=== PATIENT | male | born 1935 | race Caucasian/White ===

== ENCOUNTER 2018-08-31 09:14 | Day surgery (SDC) | payer OTHER ==
[2018-08-29 09:12] VITALS: BMI 27.8
[2018-08-31] MEDS ORDERED: DEXAMETHASONE SOD PHOSPHATE/PF 10 MG/ML SDV ONE (09:32)
[2018-08-31] MEDS ORDERED: ROPIVACAINE HCL 0.5% 30ML VIAL ONE (09:32)
[2018-08-31] MEDS ORDERED: MIDAZOLAM HCL 2 MG/2 ML SINGLE DOSE VIAL ONE ×4 (09:34→12:34)
--- NOTE | 2018-08-31 10:33 | HP ---
History & Physical Update - History History: No Change - Physical Physical: No Change - Assessment Assessment: No Change - Plan Plan: No Change (no change since visit on 08/23/18)
--- NOTE | 2018-08-31 10:46 | HP ---
Admitting History and Physical - Admission Chief Complaint: For creation of left avf today. Preoperative vein mapping showed good cephalic vein in left arm. Limitations to Obtaining History: No Limitations - Past Medical History Cardiovascular: Yes: HTN, Hyperlipdemia Musculoskeletal: Yes: Osteoarthritis Endocrine: Yes: Diabetes Mellitus - Past Surgical History Past Surgical History: Yes: Cataract Removal, Prostatectomy - Smoking History Smoking history: Former smoker Have you smoked in the past 12 months: No If you are a former smoker, when did you quit?: 60 years ago - Alcohol/Substance Use Hx Alcohol Use: No Home Medications - Allergies Allergies/Adverse Reactions: Allergies Allergy/AdvReac Type Severity Reaction Status Date / Time No Known Allergies Allergy Verified 08/31/18 09:56 - Home Medications Home Medications: Ambulatory Orders Aspirin [Ecotrin] 81 mg PO DAILY 08/29/18 Atorvastatin Ca [Lipitor] 20 mg PO HS 08/29/18 Carvedilol [Coreg -] 12.5 mg PO BID 08/29/18 Cholecalciferol (Vitamin D3) [Vitamin D3 -] 400 unit PO DAILY 08/29/18 Ferric Citrate [Auryxia] 210 mg PO BID 08/29/18 Furosemide [Lasix] 80 mg PO DAILY 08/29/18 Glimepiride [Amaryl -] 1 mg PO DAILY 08/29/18 Nifedipine [Nifedipine ER] 90 mg PO DAILY 08/29/18 Sodium Bicarbonate - 650 mg PO DAILY 08/29/18 Tamsulosin HCl [Flomax] 0.4 mg PO DAILY 08/29/18 Family Disease History - Family Disease History Family History: Denies Review of Systems - Review of Systems Constitutional: reports: No Symptoms Eyes: reports: No Symptoms HENT: reports: No Symptoms Neck: reports: No Symptoms Cardiovascular: reports: No Symptoms Respiratory: reports: No Symptoms Gastrointestinal: reports: No Symptoms Genitourinary: reports: No Symptoms Musculoskeletal: reports: No Symptoms Integumentary: reports: No Symptoms Neurological: reports: No Symptoms Endocrine: reports: No Symptoms Hematology/Lymphatic: reports: No Symptoms Psychiatric: reports: No Symptoms Physical Examination Vital Signs: Vital Signs Temperature 98.1 F 08/31/18 09:49 Pulse Rate 59 L 08/31/18 09:49 Respiratory Rate 18 08/31/18 09:49 Blood Pressure 150/65 08/31/18 09:49 O2 Sat by Pulse Oximetry (%) 98 08/31/18 09:50 Constitutional: Yes: Well Nourished, No Distress, Calm Eyes: Yes: WNL, Conjunctiva Clear, EOM Intact HENT: Yes: WNL, Atraumatic, Normocephalic Neck: Yes: WNL, Supple, Trachea Midline Cardiovascular: Yes: WNL, Regular Rate and Rhythm Respiratory: Yes: WNL, Regular, CTA Bilaterally Gastrointestinal: Yes: WNL, Normal Bowel Sounds Musculoskeletal: Yes: WNL Extremities: Yes: WNL Edema: No Peripheral Pulses WNL: Yes Integumentary: Yes: WNL Neurological: Yes: WNL, Alert, Oriented ...Motor Strength: WNL Psychiatric: Yes: WNL Labs: CBC, BMP 08/31/18 09:40 Problem List - Problems (1) Chronic renal failure Assessment/Plan: Chronic renal failure 1. For creation of AVF. Pt will start HD in two to three months. Se Contreras DO Code(s): N18.9 - CHRONIC KIDNEY DISEASE, UNSPECIFIED
[2018-08-31] MEDS ORDERED: HEPARIN NA (PORCINE) 5,000 UNITS/ML 1ML VIAL ONE ×2 (10:59→12:06)
[2018-08-31] MEDS ORDERED: LIDOCAINE HCL 2% (20ML MULTI-DOSE VIAL) NR ONE (10:59)
[2018-08-31] MEDS ORDERED: POVIDONE-IODINE OINTMENT 10% - 28.4 GM TUBE ONE (11:22)
[2018-08-31] MEDS ORDERED: ceFAZolin SODIUM 1 GM VIAL IVPB ONE (11:31)
[2018-08-31] MEDS ORDERED: LIDOCAINE HCL 1%, 10 MG/ML (20ML VIAL) NR ONE ×2 (11:42)
[2018-08-31] MEDS ORDERED: HEPARIN NA (PORCINE) 5,000 UNITS/ML 1ML VIAL SQ ONE (11:45)
[2018-08-31] MEDS ORDERED: POVIDONE-IODINE 10% SOLN 118 ML BOTTLE TP ONE (12:49)
[2018-08-31] MEDS ORDERED: ONDANSETRON 4 MG/2 ML VIAL IVPUSH PRN (12:58)
--- NOTE | 2018-08-31 13:32 | OP ---
Operative Note - Note: Operative Date: 08/31/18 Pre-Operative Diagnosis: CRF Operation: Creation of left cephalic vein fistula. Post-Operative Diagnosis: Same as Pre-op Surgeon: Se Contreras Felt Strip Finisher: Alka Gillespie Anesthesia: Fractional Estimated Blood Loss (mls): 30 Operative Report Dictated: Yes
--- NOTE | 2018-08-31 14:07 | OP ---
DATE OF OPERATION: 08/31/2018 PREOPERATIVE DIAGNOSIS: Chronic renal failure. POSTOPERATIVE DIAGNOSIS: Chronic renal failure. PROCEDURE: Creation of left cephalic vein fistula. SURGEON: eS Barraza DO BASE WAD OPERATOR ADJUSTER: YOCASTA Nicole ANESTHESIA: Fractional with nerve block. BLOOD LOSS: 30 mL The patient is an 82-year-old male who came from the security and compliance analyst's office with the notion that he will need to be starting dialysis in a couple of months and he needs a fistula to be created so that he will be ready for dialysis. Patient had preoperative vein mapping in the left upper extremity, showing that he has a good cephalic vein of good caliber. Patient came in through ambulatory surgery. Patient was consented for the procedure, understanding all risks, benefits, and alternatives. In the holding area, Anesthesia performed a supraclavicular nerve block. Patient was then brought into the operating room, laid down on the operating room table in a supine manner. The area of the left arm was prepped and draped in a sterile surgical manner. Under ultrasound guidance, we were able to visualize the cephalic vein and the brachial artery above the antecubital space, and we were able to divine where those vessels were located. A transverse incision was drawn with a skin marker. We then went ahead and injected 10 mL of lidocaine 1% in the area. We then took a number-15 blade and made our 7-cm incision. Bovie electrocautery was then used to control hemostasis. We were then able to dissect the subcutaneous tissue using Metzenbaum scissors and get down to the cephalic vein. The cephalic vein was dissected anterior and posteriorly, and all branches were ligated using 4-0 silk. We then went medially and opened the bicipital aponeurosis, and we were able to get down to the brachial artery. The brachial artery was dissected anterior and posteriorly, and vessel loops were placed proximally and distally. Then, 5000 units of IV heparin were administered to the patient. We then went ahead and ligated our cephalic vein distally. We then went ahead and placed a feeding tube in the vein and the feeding tube went up nicely with good backbleeding and the vein was dilated up appropriately. We then were able to transpose the vein over to the artery. Before transposing it, we went ahead and made a 7-mm venotomy on the vein. After 3 minutes of being on IV heparin, we got distal and proximal control on our artery. Using a 15 blade, we made an arteriotomy which was extended to 7 mm using Angeles scissors. stay sutures were placed on the artery then. We then used 6-0 Prolene double-arm, went outside in on the vein and inside out on the artery and ran the suture around to perform an anastomosis between the artery and the vein. Once completed, we opened the distal artery first, then the proximal artery, and there was a good thrill in our AV fistula. There was no bleeding. The vein dilated up appropriately. The wound was then well irrigated, and 3-0 Vicryl was used in the subcutaneous tissue was approximated in an interrupted manner. The skin was then closed using 4-0 Biosyn in a subcuticular running fashion. Thereafter, Steri-Strips were placed, 4 x 4, Tegaderms were placed. The patient tolerated the procedure with no complication. Patient transferred to PACU in stable condition. Total blood loss was 30 mL. SE BARRAZA DO [id number]
[2018-08-31 14:49] VITALS: BP 148/58; PULSE 66; TEMP 97.6
== END 2018-08-31 15:15 | disposition home or self-care (01) ==
LOC: JASU-SURG 09:14
PROVIDERS: ATTEND Surgery Vascular Surgery
PROC: 03180ZD Bypass Left Brachial Artery to Upper Arm Vein, Open Approach (ICD-10-PCS; principal; 2018-08-31 10:30)
DX: I12.0 Hypertensive chronic kidney disease with stage 5 chronic kidney disease or end stage renal disease (principal); E11.22 Type 2 diabetes mellitus with diabetic chronic kidney disease; N18.6 End stage renal disease; Z79.84 Long term (current) use of oral hypoglycemic drugs
CPT/HCPCS: 36415; 82962; 84132; 94760; J1644

== ENCOUNTER 2019-02-03 18:04 | Inpatient (IN) | payer OTHER ==
[2019-02-03] MEDS ORDERED: NITROGLYCERIN 25MG/D5W 250ML 25 MG/250 ML ML IVPB ONE (18:20)
--- NOTE | 2019-02-03 18:24 | PDOC ---
Attending Attestation - Resident Resident Name: RogerCarlyle brown - ED Attending Attestation I have performed the following: I have examined & evaluated the patient, The case was reviewed & discussed with the resident, I agree w/resident's findings & plan, Exceptions are as noted - HPI HPI: 02/03/19 18:34 83y M hx of chronic renal failure (pre dialysis) presents with complaint of sudden onset of sob around 2pm today while he was watching TV. Pt states he has been doing well. Denies anyassociated cp, cough, fever/chills, hemoptysis, leg sweling, orthopnea, n/v, diaphoresis, abd pain, back pain palpitations, lghtheadedness. Per EMS the patient was very hypertensive upon their arrival, had a sat that was 100% on nasal cannula that was placed by the fire department , had rales bilaterally was started on CPAP. The patient states his feeling better upon arrival. States she has never felt similar symptoms in the past. PMD: Dr. Ulloa Renal: Dr. [facility] GENERAL: The patient is awake, alert, and fully oriented, Nontoxic - in no acute distress. HEAD: Normocephalic, atraumatic. EYES: extraocular movements intact, sclera anicteric, conjunctiva clear. ENT: Normal voice, Moist mucous membranes. NECK: Normal range of motion, supple LUNGS: scant rales b/l, no acute respiratory distress, CPAP in place. HEART: Irregularly irregular, ABDOMEN: Soft, nontender, normoactive bowel sounds. No guarding, no rebound. . No CVA tenderness EXTREMITIES: Normal range of motion, no edema. No clubbing or cyanosis. No cords, erythema, or tenderness. NEUROLOGICAL: No facial assymetry, Normal speech, PSYCH: Normal mood, normal affect. SKIN: Warm, Dry, normal turgor, Upon arrival the patient was no distress he did have rales bilaterally, ultrasound of his lungs did reveal beelines. We continued the noninvasive ventilation pts bp was in the 160s sbp pt given ntg - Physicial Exam PE: 02/06/19 22:03 see above - Critical Care Time Total Critical Care Time: 45 Critical Care Statement: The care of this patient involved high complexity decision making to prevent further life threatening deterioration of the patient 's condition and/or to evaluate & treat vital organ system(s) failure or risk of failure. - Medical Decision Making 02/03/19 19:26 pts labs reviewed no leukocytosis noted cmp noted for bun of 72 and cr of 3.9- I suspect this may be chronic, however there is no prior lab work for comparison. pts K is wnl ekg noted for new onset afib pts trop is bumped at 0.06 - no compliaint of cp and no ischemic changes noted on ekg bmp at 12k suspect chf, possible realted to CKD vs afib will trend his labs will admit for further mangaement of afib, ckd, pulmonary edema bedside echo noted for trace pericardial effusion pts cxr noted for possible consolidation in R lung - however, he has no signs suggestion of pna including fever/cough. 02/03/19 19:46 pts respiratory status is improved no acute respiratory distress will give pt his nifedipine Heart Score/ECG Review - ECG Impressions Comment:: 02/03/19 19:16 Twelve-lead EKG was performed and reviewed by me. Irregularly irregular rate of 109 st depressions on lateral leads
[2019-02-03 18:35] LABS: BASO % 0.6 % (0-2.0); EOS % 3.5 % (0-4.5); HEMATOCRIT 34.2 % (35.4-49); HEMOGLOBIN 11.7 GM/dL (11.7-16.9); LYMPH % 7.9 % (8-40); MCH 29.9 pg (25.7-33.7); MCHC 34.3 g/dl (32.0-35.9); MEAN CELL VOLUME 87.2 fl (80-96); MONO % 7.8 % (3.8-10.2); NEUT % 80.2 % (42.8-82.8); PLATELET COUNT 266 K/MM3 (134-434); RBC 3.92 M/mm3 (4.00-5.60); RDW 15.4 % (11.9-15.9)
[2019-02-03] MEDS ORDERED: NITROGLYCERIN 2% OINTMENT - 1GM PACKET TD ONE ×2 (18:38→18:53)
[2019-02-03] MEDS ORDERED: NITROGLYCERIN SUBLINGUAL 1/150 0.4 MG TAB SL ONE (18:38)
--- NOTE | 2019-02-03 18:49 | PDOC ---
History of Present Illness - General Chief Complaint: Respiratory Distress Stated Complaint: SOB Time Seen by Provider: 02/03/19 18:19 History Source: Patient, Family Exam Limitations: No Limitations - History of Present Illness Initial Comments: 02/03/19 18:42 Patient is an 83M with history of CKD Stage 4 (fistula placed, not on dialysis yet), HTN, DM, HLD here today complaining of acute onset of shortness of breath at 2pm today. EMS reports BPs were 200s in the field with rales bilaterally. Patient was started on CPAP and given nitro x2 with improvement of symptoms. Patient denies chest pain, fever, chills, nausea, vomiting. Denies cardiac history, afib. Denies abdominal pain. Denies leg swelling, recent travel, history of blood clots. Past History - Past Medical History Allergies/Adverse Reactions: Allergies Allergy/AdvReac Type Severity Reaction Status Date / Time No Known Allergies Allergy Verified 02/03/19 18:11 Home Medications: Ambulatory Orders Aspirin [Ecotrin] 81 mg PO DAILY 08/29/18 Atorvastatin Ca [Lipitor] 20 mg PO HS 08/29/18 Carvedilol [Coreg -] 12.5 mg PO BID 08/29/18 Cholecalciferol (Vitamin D3) [Vitamin D3 -] 400 unit PO DAILY 08/29/18 Ferric Citrate [Auryxia] 210 mg PO BID 08/29/18 Furosemide [Lasix] 80 mg PO DAILY 08/29/18 Glimepiride [Amaryl -] 1 mg PO DAILY 08/29/18 Nifedipine [Nifedipine ER] 60 mg PO BID 08/29/18 Sodium Bicarbonate - 650 mg PO DAILY 08/29/18 Tamsulosin HCl [Flomax] 0.4 mg PO DAILY 08/29/18 COPD: Yes Diabetes: Yes HTN: Yes Hypercholesterolemia: Yes - Immunization History Immunization Up to Date: Yes - Suicide/Smoking/Psychosocial Hx Smoking History: Unknown if ever smoked Have you smoked in the past 12 months: No If you are a former smoker, when did you quit?: 60 years ago Hx Alcohol Use: No Drug/Substance Use Hx: No Substance Use Type: None Review of Systems - Review of Systems Able to Perform ROS?: Yes Comments:: 02/03/19 18:44 GENERAL/CONSTITUTIONAL: No fever or chills. No weakness. HEAD, EYES, EARS, NOSE AND THROAT: No change in vision. No sore throat. CARDIOVASCULAR: No chest pain +shortness of breath RESPIRATORY: No cough, wheezing, or hemoptysis. GASTROINTESTINAL: No nausea, vomiting, diarrhea or constipation. GENITOURINARY: No dysuria, frequency, or change in urination. MUSCULOSKELETAL: No joint or muscle swelling or pain. No neck or back pain. SKIN: No rash NEUROLOGIC: No headache, vertigo, loss of consciousness, or change in strength/ sensation. HEMATOLOGIC/LYMPHATIC: No anemia, easy bleeding, or history of blood clots. ALLERGIC/IMMUNOLOGIC: No hives or skin allergy. *Physical Exam - Vital Signs Last Vital Signs Temp Pulse Resp BP Pulse Ox 97.4 F L 108 H 18 167/100 97 02/03/19 18:35 02/03/19 18:35 02/03/19 18:35 02/03/19 18:35 02/03/19 18:35 - Physical Exam Comments: 02/03/19 18:45 GENERAL: Awake, alert, and fully oriented, in no acute distress HEAD: No signs of trauma, normocephalic, atraumatic EYES: PERRLA, EOMI, sclera anicteric, conjunctiva clear ENT: Auricles normal inspection, hearing grossly normal, nares patent, oropharynx clear without exudates. Moist mucosa NECK: Normal ROM, supple, no lymphadenopathy, JVD, or masses LUNGS: Tachypneic, speaks short sentences, crackles bilaterally HEART: Tachycardia, normal S1 and S2, no murmurs, rubs or gallops, peripheral pulses normal and equal bilaterally. ABDOMEN: Soft, nontender, normoactive bowel sounds. No guarding, no rebound. No masses EXTREMITIES: Normal inspection, Normal range of motion, no edema. No clubbing or cyanosis. NEUROLOGICAL: Cranial nerves II through XII grossly intact. Normal speech, no focal sensorimotor deficits SKIN: Warm, Dry, normal turgor, no rashes or lesions noted. Moderate Sedation - Procedure Monitoring Vital Signs: Procedure Monitoring Vital Signs Temperature 97.4 F L 02/03/19 18:35 Pulse Rate 108 H 02/03/19 18:35 Respiratory Rate 18 02/03/19 18:35 Blood Pressure 167/100 02/03/19 18:35 O2 Sat by Pulse Oximetry (%) 97 02/03/19 18:35 ED Treatment Course - LABORATORY CBC & Chemistry Diagram: 02/03/19 18:10 02/03/19 18:10 - ADDITIONAL ORDERS Additional order review: Laboratory Results 02/03/19 18:10 PT with INR Cancelled INR Cancelled 02/03/19 18:10 RBC 3.92 L MCV 87.2 MCHC 34.3 RDW 15.4 MPV 8.0 Neutrophils % 80.2 Lymphocytes % 7.9 L Monocytes % 7.8 Eosinophils % 3.5 Basophils % 0.6 Medical Decision Making - Medical Decision Making 02/03/19 18:46 Patient is 83M with history of CKD stage 4, htn, dm, HLD here today with shortness of breath. Initial vitals notable for bp elevation, tachycardia, tachypnea. POCUS shows b-lines bilaterally. Patient is in acute pulm edema. BPs sadaf to 190s after nitro from EMS wore off. Attempted to start nitro drip, tubing not available. Given SL and started on nitro paste. Last BP in 150s systolic. Patient no longer tachypneic. EKG shows afib with rate of 105. ST depressions in lateral precordial leads. No st elevations. ?p waves in a few beats, but overall irregular. PE considered, but believe not likely enough to work up given history and physical. DDx for cause of acute pulmonary edema includes, but is not limited to : CHF, HTN, CKD. 02/03/19 19:13 Bedside echo shows small pericardial effusion. Good squeeze. No signs of right heart strain. 02/04/19 01:31 CBC normal. CMP shows evidence of kidney disease. CXR shows mild pulmonary edema , taken after BPs normalized. Trop mildly elevated, BNP 11K. Given lasix. Case d/w Dr Pino, accepted to [facility]. *DC/Admit/Observation/Transfer Diagnosis at time of Disposition: Acute pulmonary edema - Discharge Dispostion Condition at time of disposition: Stable Decision to Admit order: Yes - Referrals - Patient Instructions - Post Discharge Activity
[2019-02-03 18:52] LABS: ARTERIAL BLD GAS O2 SATURATION 98.6 % (95-98); ARTERIAL BLOOD GAS PCO2 36.4 mmHg (35-45); ARTERIAL BLOOD GAS PO2 143 mmHg (80-105); ARTERIAL BLOOD GAS pH 7.35 (7.35-7.45); CARBOXYHEMOGLOBIN 0.7 % (0-2)
[2019-02-03 18:58] LABS: INR 1.16 (0.83-1.09); PROTHROMBIN TIME (PATIENT) 13.7 SEC (9.7-13.0)
[2019-02-03 19:01] LABS: ACTIVATED PTT 32.5 SECONDS (25.2-36.5)
[2019-02-03 19:12] LABS: ALBUMIN 3.6 g/dl (3.4-5.0); ALK PHOS 70 U/L (45-117); ANION GAP 12 MMOL/L (8-16); BILIRUBIN,TOTAL 0.5 mg/dL (0.2-1); BLOOD UREA NITROGEN 79 mg/dL (7-18); CALCIUM 8.6 mg/dL (8.5-10.1); CHLORIDE 110 mmol/L (98-107); CO2 20 mmol/L (21-32); CREATININE 3.9 mg/dL (0.55-1.3); GLUCOSE,RANDOM 154 mg/dL (74-106); MAGNESIUM 2.6 mg/dL (1.8-2.4); N-TERMINAL BNP 12119.9 pg/ml (5-450); PHOSPHOROUS 4.1 mg/dL (2.5-4.9); SGOT/AST 5 U/L (15-37); SGPT/ALT 12 U/L (13-61); SODIUM 142 mmol/L (136-145); TOT PROT 6.5 g/dl (6.4-8.2)
[2019-02-03] MEDS ORDERED: FUROSEMIDE 40 MG/4 ML INJECTABLE VIAL IVPUSH ONE ×2 (19:26→20:30)
[2019-02-03] MEDS ORDERED: NIFEdipine E.R 60 MG TABLET (UD) PO ONE (19:45)
--- NOTE | 2019-02-03 19:46 | PN ---
Teaching Attending Note Name of Resident: Suresh Pino ATTENDING PHYSICIAN STATEMENT I saw and evaluated the patient. I reviewed the resident's note and discussed the case with the resident. I agree with the resident's findings and plan as documented. SUBJECTIVE: Patient is an 83 year old man with PMH of CKD Stage 4, HTN, NIDDM and HLD here today complaining of acute onset of shortness of breath at 2pm today. EMS reports BPs were 200s in the field with rales bilaterally. Patient was started on CPAP and given nitro x2 with improvement of symptoms. Patient denies chest pain, fever, chills, nausea, vomiting. Denies cardiac history, afib. Denies abdominal pain. Denies leg swelling, recent travel, history of blood clots. OBJECTIVE: Alert Vital Signs Period Temp Pulse Resp BP Sys/Patiño Pulse Ox Last 24 Hr 97.4 F 105-115 18-22 145-167/80-102 97-100 HEENT: No Jaundice, eye redness or discharge, PERRLA, EOMI. Normocephalic, atraumatic. External ears are normal and hearing is grossly intact. No nasal discharge. Neck: Supple, nontender. No palpable adenopathy or thyromegaly. No JVD Chest: Good effort. Bibasilar crackles. Clear to percussion. Heart: Regular. No S3, rub or murmur Abdomen: Not distended, soft, nontender and no HSM. No rebound or guarding. Normal bowel sounds. Ext: Peripheral pulses intact. No leg edema. Left arm AV fistula Skin: Warm and dry. No petechiae, rash or ecchymosis. Neuro: Alert. Oriented x3. CN 2-12 grossly intact. Sensation grossly intact in all four extremities and DTR are symmetric. Psych: Appropriate mood and affect. Good insight. Current Medications Generic Name Dose Route Start Last Admin Trade Name Freq PRN Reason Stop Dose Admin Aspirin 81 mg 02/04/19 10:00 Ecotrin - PO DAILY [facility] Atorvastatin Calcium 20 mg 02/03/19 22:00 Lipitor - PO HS ELANA Cholecalciferol 400 unit 02/04/19 10:00 Vitamin D3 - PO DAILY [facility] Heparin Sodium (Porcine) 5,000 unit 02/03/19 20:30 Heparin - SQ TID [facility] Nitroglycerin/Dextrose 25 mg in 250 mls @ 6 mls/hr 02/03/19 20:45 Nitroglycerin 25mg/D5w 250ml IVPB TITR ELANA 10 MCG/MIN Insulin Aspart 1 vial 02/03/19 22:00 Novolog Vial Sliding Scale - SQ ACHS [facility] Protocol Non-Formulary Medication 210 mg 02/03/19 22:00 Ferric Citrate [Auryxia] PO BID ELANA Tamsulosin HCl 0.4 mg 02/04/19 08:30 Flomax - PO DAILY@0830 [facility] Home Medications Medication Instructions Recorded Aspirin [Ecotrin] 81 mg PO DAILY 08/29/18 Atorvastatin Ca [Lipitor] 20 mg PO HS 08/29/18 Carvedilol [Coreg -] 12.5 mg PO BID 08/29/18 Cholecalciferol (Vitamin D3) 400 unit PO DAILY 08/29/18 [Vitamin D3 -] Ferric Citrate [Auryxia] 210 mg PO BID 08/29/18 Furosemide [Lasix] 80 mg PO DAILY 08/29/18 Glimepiride [Amaryl -] 1 mg PO DAILY 08/29/18 Nifedipine [Nifedipine ER] 60 mg PO BID 08/29/18 Sodium Bicarbonate - 650 mg PO DAILY 08/29/18 Tamsulosin HCl [Flomax] 0.4 mg PO DAILY 08/29/18 Abnormal Lab Results 02/03/19 02/03/19 02/03/19 18:10 18:10 18:10 RBC 3.92 L Hct 34.2 L Absolute Neuts (auto) 8.1 H Lymphocytes % 7.9 L PT with INR 13.70 H INR 1.16 H ABG pO2 at Pt Temp ABG HCO3 ABG O2 Sat (Measured) ABG Base Excess Chloride 110 H Carbon Dioxide 20 L BUN 79 H Creatinine 3.9 H Random Glucose 154 H Magnesium 2.6 H AST 5 L ALT 12 L Troponin I 0.06 H B-Natriuretic Peptide 75400.9 H 02/03/19 18:33 RBC Hct Absolute Neuts (auto) Lymphocytes % PT with INR INR ABG pO2 at Pt Temp 143 H ABG HCO3 19.5 L ABG O2 Sat (Measured) 98.6 H ABG Base Excess -5.0 L Chloride Carbon Dioxide BUN Creatinine Random Glucose Magnesium AST ALT Troponin I B-Natriuretic Peptide ASSESSMENT AND PLAN: 1. Acute Pulmonary Edema/Hypertensive Urgency - Possible that severe hypertension resulted in acute LV dysfunction in a patient who already had CKD- related fluid overload. But the suddenness of SOB also means that pulmonary embolism or acute IL must be excluded. Afib appears to be new onset. EKG shows rate of [address] depression in V4-6 and troponin is 0.06. CXR shows cardiomegaly with RLL atelectasis/congestion. His BP has improved after he got Nitroglycerine, Lasix and Nifedipine in the ER. He has been transitioned from BIPAP to nasal canula oxygen and is on IV nitroglycerine. Will give escalating doses of IV lasix starting with 80 mg, repeat EKG and troponin and admit to telemetry to rule out ACS. If his response to fluid removal (via diuresis or ?dialysis) is suboptimal, and ACS is ruled out, and symptoms persist, then a VQ scan will be obtained to rule out PE. Consult Cardiology and Nephrology. Will consider anticoagulation for Afib in consultation with cardiology. Get ECHO. 2. DM For now, we will hold the home diabetes drugs and implement sliding scale insulin regimen. Provide comprehensive diabetes care with patient teaching and counseling about the importance of adherence to prescribed diabetes regimen, euglycemia, eye care and foot care. 3. DVT prophylaxis - Heparin 5000u sq tid. 4. Advance directives - Full code
[2019-02-03] MEDS ORDERED: NIFEdipine E.R. 30 MG TABLET (FP) ONE (19:50)
[2019-02-03] MEDS ORDERED: FUROSEMIDE 40 MG/4 ML INJECTABLE VIAL ONE ×2 (19:50→21:18)
[2019-02-03] MEDS ORDERED: HEPARIN NA (PORCINE) 5,000 UNITS/ML 1ML VIAL SQ SCH (20:30)
--- NOTE | 2019-02-03 20:41 | HP ---
CHIEF COMPLAINT: SOB PCP: Dr. Ulloa Nephro: Dr. Yanez HISTORY OF PRESENT ILLNESS: Patient is an 83 y/o M w/ PMHx CKD stage 4 s/p AV fistula in Aug 2018 however not on HD at this time, HTN, NIDDM, HLD, p/w acute onset SOB ~2pm this afternoon, not accompanied by chest pain or any other changes in usual state of health. Has not experienced dyspnea, orthopnea, edema, or other symptoms of HF previously. No prior episodes like this. 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 Started on CPAP in field and given nitro x 2 with significant symptomatic improvement. In ED CBC wnl, Cr 3.9 however baseline unknown, Trop 0.06, BNP 00392. EKG showing Afib/ RVR w/ ST depressions in lateral leads, no known prior. No prior cardiology care , no prior known cardiac Hx. Received Lasix 40 IV in ED (home dose 80 PO), nitro paste. At time of encounter acute symptoms had resolved and patient had no active complaints. ROS otherwise negative. ER course was notable for: (1) trop 0.06, BNP 19004l (2) Cr 3.9 (3) nitro paste Recent Travel: PAST MEDICAL HISTORY: As per HPI PAST SURGICAL HISTORY: None Social History: Smoking: Alcohol: Drugs: Family History: Allergies No Known Allergies Allergy (Verified 02/03/19 18:11) HOME MEDICATIONS: Home Medications Medication Instructions Recorded Aspirin [Ecotrin] 81 mg PO DAILY 08/29/18 Atorvastatin Ca [Lipitor] 20 mg PO HS 08/29/18 Carvedilol [Coreg -] 12.5 mg PO BID 08/29/18 Cholecalciferol (Vitamin D3) 400 unit PO DAILY 08/29/18 [Vitamin D3 -] Ferric Citrate [Auryxia] 210 mg PO BID 08/29/18 Furosemide [Lasix] 80 mg PO DAILY 08/29/18 Glimepiride [Amaryl -] 1 mg PO DAILY 08/29/18 Nifedipine [Nifedipine ER] 60 mg PO BID 08/29/18 Sodium Bicarbonate - 650 mg PO DAILY 08/29/18 Tamsulosin HCl [Flomax] 0.4 mg PO DAILY 08/29/18 REVIEW OF SYSTEMS As per HPI PHYSICAL EXAMINATION Vital Signs - 24 hr 02/03/19 02/03/19 02/03/19 18:05 18:06 18:07 Temperature Pulse Rate 105 H Pulse Rate [ 115 H Apical] Respiratory 22 H Rate Blood Pressure Blood Pressure 163/101 H [Right Arm] O2 Sat by Pulse 100 98 100 Oximetry (%) 02/03/19 02/03/19 02/03/19 18:30 18:35 18:38 Temperature 97.4 F L Pulse Rate 108 H Pulse Rate [ 105 H 105 H Apical] Respiratory 20 18 20 Rate Blood Pressure 167/100 Blood Pressure 151/95 145/80 [Right Arm] O2 Sat by Pulse 100 97 100 Oximetry (%) 02/03/19 18:50 Temperature Pulse Rate Pulse Rate [ 109 H Apical] Respiratory 19 Rate Blood Pressure Blood Pressure 160/102 H [Right Arm] O2 Sat by Pulse 100 Oximetry (%) GENERAL: A&Ox3, NAD HEAD: NC/AT EYES: PERRLA, EOMI EARS, NOSE, THROAT: Ears normal, nares patent, oropharynx clear without exudates. Moist mucous membranes. NECK: Normal range of motion, supple without lymphadenopathy, JVD, or masses. LUNGS: dependent rales b/l HEART: tachycardic, irregularly irregular ABDOMEN: +bs, soft, NT, ND MUSCULOSKELETAL: Normal range of motion at all joints. No bony deformities or tenderness. No CVA tenderness. UPPER EXTREMITIES: 2+ pulses, warm, well-perfused. No cyanosis. No clubbing. No peripheral edema. LOWER EXTREMITIES: 2+ pulses, warm, well-perfused. No calf tenderness. No peripheral edema. 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 Good eye contact. Appropriate mood and affect. SKIN: Warm, dry, normal turgor, no rashes or lesions noted, normal capillary refill. Laboratory Results - last 24 hr 02/03/19 02/03/19 02/03/19 18:10 18:10 18:10 WBC 10.0 RBC 3.92 L Hgb 11.7 Hct 34.2 L MCV 87.2 MCH 29.9 MCHC 34.3 RDW 15.4 Plt Count 266 MPV 8.0 Absolute Neuts (auto) 8.1 H Neutrophils % 80.2 Lymphocytes % 7.9 L Monocytes % 7.8 Eosinophils % 3.5 Basophils % 0.6 Nucleated RBC % 0 PT with INR 13.70 H INR 1.16 H PTT (Actin FS) 32.5 Anticoagulation Therapy Puncture Site ABG pH ABG pCO2 at Pt Temp ABG pO2 at Pt Temp ABG HCO3 ABG O2 Sat (Measured) ABG O2 Content ABG Base Excess Stan Test Carboxyhemoglobin Methemoglobin O2 Delivery Device Oxygen Flow Rate Vent Mode Vent Rate Mechanical Rate Pressure Support Vent Sodium 142 Potassium 4.0 Chloride 110 H Carbon Dioxide 20 L Anion Gap 12 BUN 79 H Creatinine 3.9 H Creat Clearance w eGFR 14.77 Random Glucose 154 H Calcium 8.6 Phosphorus 4.1 Magnesium 2.6 H Total Bilirubin 0.5 AST 5 L ALT 12 L Alkaline Phosphatase 70 Creatine Kinase 42 Troponin I 0.06 H B-Natriuretic Peptide 80441.9 H Total Protein 6.5 Albumin 3.6 02/03/19 02/03/19 18:10 18:33 WBC RBC Hgb Hct MCV MCH MCHC RDW Plt Count MPV Absolute Neuts (auto) Neutrophils % Lymphocytes % Monocytes % Eosinophils % Basophils % Nucleated RBC % PT with INR Cancelled INR Cancelled PTT (Actin FS) Anticoagulation Therapy No Result Required. Puncture Site No Result Required. ABG pH 7.35 ABG pCO2 at Pt Temp 36.4 ABG pO2 at Pt Temp 143 H ABG HCO3 19.5 L ABG O2 Sat (Measured) 98.6 H ABG O2 Content 16.5 ABG Base Excess -5.0 L Stan Test No Result Required. Carboxyhemoglobin 0.7 Methemoglobin 0.3 O2 Delivery Device No Result Required. Oxygen Flow Rate No Result Required. Vent Mode No Result Required. Vent Rate No Result Required. Mechanical Rate No Result Required. Pressure Support Vent No Result Required. Sodium Potassium Chloride Carbon Dioxide Anion Gap BUN Creatinine Creat Clearance w eGFR Random Glucose Calcium Phosphorus Magnesium Total Bilirubin AST ALT Alkaline Phosphatase Creatine Kinase Troponin I B-Natriuretic Peptide Total Protein Albumin ASSESSMENT/PLAN: 3 y/o M w/ PMHx CKD stage 4 s/p AV fistula in Jul/Aug 2018 however not on HD at this time, HTN, NIDDM, HLD, p/w acute onset SOB ~2pm this afternoon, in hypertensive urgency/emergency in the field with systolic BPs in 200s, b/l rales , troponemia. #CV -cardiology consulted, d/w Dr. Vega -hypertensive emergency, received nitro paste in ED, starting nitro gtt -troponin 0.06, will trend -EKG showing Afib/RVR w/ ST depressions in lateral leads, no known prior -repeating EKG -starting heparin gtt -Lasix 40 IV given in ED -further Lasix 80 IV stat, starting Lasix 40 IV BID -further diuresis as per nephrology and cardiology -CXR without notable congestive changes -echo ordered #pulmonary -acute pulmonary edema noted in field -rales improving -transitioned from NIPPV to NC, maintaining saturation, dyspnea resolving #renal -nephrology consulted, d/w Dr. June covering for Dr. Yanez -nitro gtt for BP control and improved diuresis -will assess need for HD -AV fistula in place since Sep 07 #FEN -no IVF -monitor and correct electrolytes -renal/diabetic diet #PPx -DVT: heparin gtt -GI: not indicated #code -full #dispo -admit to telemetry Visit type - Emergency Visit Emergency Visit: Yes ED Registration Date: 02/03/19 Care time: The patient presented to the Emergency Department on the above date and was hospitalized for further evaluation of their emergent condition. - New Patient This patient is new to me today: Yes Date on this admission: 02/03/19 - Critical Care Critical Care patient: No
[2019-02-03] MEDS ORDERED: HEPARIN NA (PORCINE) 5,000 UNITS/ML 1ML VIAL IVPUSH PRN ×2 (20:50)
[2019-02-03] MEDS ORDERED: NITROGLYCERIN 25MG/D5W 250ML 25 MG/250 ML ML IVPB SCH (21:00)
[2019-02-03] MEDS ORDERED: HEPARIN NA (PORCINE) 5,000 UNITS/ML 1ML VIAL ONE (21:18)
[2019-02-03] MEDS ORDERED: HEPARIN INFUSION - 25,000 UNITS/500 ML INFUS.BAG IVPB ONE (21:18)
[2019-02-03] MEDS: HEPARIN INFUSION - 25,000 UNITS/500 ML INFUS.BAG IVPB SCH (21:49)
[2019-02-03] MEDS ORDERED: PATIENT'S OWN MEDICATION (NON-FORMULARY) (Ferric Citrate [Auryxia] 210 MG) PO SCH (22:00)
[2019-02-03] MEDS ORDERED: ATORVASTATIN CA 10 MG TABLET (FP) ONE (23:14)
[2019-02-03] MEDS ORDERED: INSULIN (NOVOLOG) ASPART 100 UNITS/ML 10ML VIAL ONE (23:14)
[2019-02-03 23:20] LABS: URINE APPEARANCE CLEAR; URINE BILIRUBIN NEGATIVE (<2.0 mg/dL); URINE COLOR STRAW; URINE GLUCOSE (UA) 1+ (NEGATIVE); URINE KETONE NEGATIVE (NEGATIVE); URINE LEUK ESTERASE NEGATIVE (NEGATIVE); URINE NITRITE NEGATIVE (NEGATIVE); URINE PROTEIN 2+ (NEGATIVE); URINE UROBILINOGEN NEGATIVE mg/dL (0.2-1.0)
[2019-02-03 23:23] LABS: URINE MUCUS RARE
[2019-02-03] MEDS: ATORVASTATIN CA 20 MG TABLET (FP) PO SCH (23:33)
[2019-02-03] MEDS: INSULIN SLIDING SCALE (NOVOLOG) 1 VIAL SQ SCH (23:33)
[2019-02-04] MEDS: INSULIN SLIDING SCALE (NOVOLOG) 1 VIAL SQ SCH ×4 (06:24→22:15)
[2019-02-04] MEDS: FUROSEMIDE 40 MG/4 ML INJECTABLE VIAL IVPUSH SCH ×2 (06:24→14:19)
[2019-02-04 06:55] LABS: BASO % 0.9 % (0-2.0); HEMATOCRIT 31.4 % (35.4-49); HEMOGLOBIN 10.8 GM/dL (11.7-16.9); LYMPH % 18.2 % (8-40); MCH 29.7 pg (25.7-33.7); MCHC 34.5 g/dl (32.0-35.9); MEAN CELL VOLUME 86.1 fl (80-96); NEUT % 62.9 % (42.8-82.8); PLATELET COUNT 266 K/MM3 (134-434); RBC 3.64 M/mm3 (4.00-5.60); RDW 15.5 % (11.9-15.9); WHITE BLOOD COUNT 6.7 K/mm3 (4.0-10.0)
[2019-02-04 07:34] LABS: ALBUMIN 3.3 g/dl (3.4-5.0); ALK PHOS 65 U/L (45-117); ANION GAP 9 MMOL/L (8-16); BILIRUBIN,TOTAL 0.5 mg/dL (0.2-1); BLOOD UREA NITROGEN 80 mg/dL (7-18); CALCIUM 8.1 mg/dL (8.5-10.1); CHLORIDE 111 mmol/L (98-107); CO2 22 mmol/L (21-32); GLUCOSE,RANDOM 113 mg/dL (74-106); MAGNESIUM 2.4 mg/dL (1.8-2.4); PHOSPHOROUS 4.1 mg/dL (2.5-4.9); SGOT/AST 4 U/L (15-37); SGPT/ALT 10 U/L (13-61); SODIUM 143 mmol/L (136-145)
[2019-02-04] MEDS ORDERED: PT OWN MED DRAWER 7, Y5N ONE ×2 (08:54→12:27)
[2019-02-04] MEDS: TAMSULOSIN HCL 0.4 MG CAP PO SCH (09:33)
--- NOTE | 2019-02-04 09:51 | CON.CARD ---
Consult Consult Specialty:: Cardiology Referred by:: Dr. Chapa Reason for Consultation:: Hypertensive urgency - History of Present Illness Chief Complaint: SOB History of Present Illness: 83M with CKD (AV fistula in place), stage III/IV, HTN, HLD presented to ER with shortness of breath. Found to be in atrial fibrillation and with moderate- severely elevated BP. Markedly elevated BNP. He was given IV Lasix, Nitro gtts and IV heparin. Currently feeling improved. Denies chest pain, palpitations, fevers or chills. - History Source History Provided By: Patient - Past Medical History Cardio/Vascular: Yes: HTN, Hyperlipdemia Pulmonary: No: Asthma, Bronchitis, Cancer, COPD, O2 Dependent, Pneumonia, Previously Intubated, Pulmonary Embolus, Pulmonary Fibrosis, Sleep Apnea, Other Gastrointestinal: No: Ascites, Cancer, Constipation, Crohn's Disease, Diverticulitis, Diverticulosis, Esophageal Varices, Gastritis, GERD, GI Bleed, Hemorrhoids, Hiatal Hernia, Inflamatory Bowel Disease, Irritable Bowel Disease, Pancreatitis, Peptic Ulcer Disease, Ulcerative Colitis, Other Renal/: Yes: Renal Inusuff Heme/Onc: No: Anemia, B12 Deficiency, Bleeding Disorder, Cancer, Current Chemotherapy, Current Radiation Therapy, Hemochromatosis, Hypercoaguable State, Myeloproliferative Synd, Sickle Cell Disease, Sickle Cell Trait, Thrombocytopenia, Other Infectious Disease: No: AIDS, C-Diff, Herpes Zoster, HIV, MRSA, STD's, Tuberculosis, VREF, Other Psych: No: Addictions, Anxiety, Bipolar, Depression, Panic, Psychosis, Schizophrenia, Other Musculoskeletal: Yes: Osteoarthritis Endocrine: Yes: Diabetes Mellitus - Past Surgical History Past Surgical History: Yes: Cataract Removal, Prostatectomy - Alcohol/Substance Use Hx Alcohol Use: No - Smoking History Smoking history: Unknown if ever smoked Have you smoked in the past 12 months: No If you are a former smoker, when did you quit?: 60 years ago - Social History Usual Living Arrangement: Alone History of Recent Travel: No Home Medications - Allergies Allergies/Adverse Reactions: Allergies Allergy/AdvReac Type Severity Reaction Status Date / Time No Known Allergies Allergy Verified 02/03/19 18:11 - Home Medications Home Medications: Ambulatory Orders Aspirin [Ecotrin] 81 mg PO DAILY 08/29/18 Atorvastatin Ca [Lipitor] 20 mg PO HS 08/29/18 Carvedilol [Coreg -] 12.5 mg PO BID 08/29/18 Cholecalciferol (Vitamin D3) [Vitamin D3 -] 400 unit PO DAILY 08/29/18 Ferric Citrate [Auryxia] 210 mg PO BID 08/29/18 Furosemide [Lasix] 80 mg PO DAILY 08/29/18 Glimepiride [Amaryl -] 1 mg PO DAILY 08/29/18 Nifedipine [Nifedipine ER] 60 mg PO BID 08/29/18 Sodium Bicarbonate - 650 mg PO DAILY 08/29/18 Tamsulosin HCl [Flomax] 0.4 mg PO DAILY 08/29/18 Family Disease History - Family Disease History Family History: Unremarkable Review of Systems Findings/Remarks: see HPI - Review of Systems Constitutional: reports: No Symptoms Eyes: reports: No Symptoms HENT: reports: No Symptoms Cardiovascular: reports: Shortness of Breath Respiratory: reports: Exercise Intolerance, SOB on Exertion Gastrointestinal: denies: No Symptoms, Abdominal Pain, Bloating, Constipation, Diarrhea, Dysphagia, Indigestion, Melena, Nausea, Rectal Bleeding, Vomiting, Vomiting Blood, Other Genitourinary: denies: No Symptoms, Burning, Discharge, Dysuria, Flank Pain, Frequency, Hematuria, Incontinence, Lesions, Menses, Pain, Testicular Mass, Testicular Pain, Testicular Swelling, Urgency, Vaginal Bleeding, Other Breasts: denies: No Symptoms Reported, See HPI, Breast Implants, Discharge from Nipple, Lumps, Pain, Skin Changes, Other Musculoskeletal: denies: No Symptoms, Back Pain, Crepitus, Decreased ROM, Extremity Pain, Joint Pain, Joint Swelling, Muscle Pain, Muscle Cramps, Muscle Weakness, Other Integumentary: denies: No Symptoms, Blister, Bruising, Change in Color, Eczema, Erythema, Incision, Lesions, Lump, Pallor, Pruritis, Rash, Wound, Other Neurological: denies: No Symptoms, Change in LOC, Change in Speech, Confusion, Dizziness, Headache, Incoordination, Numbness, Parasthesia, Pre-Existing Deficit , Seizure, Syncope, Tremors, Unsteady Gait, Weakness, Other Endocrine: denies: No Symptoms, Excessive Sweating, Flushing, Increased Hunger, Increased Thirst, Intolerance to Cold, Intolerance to Heat, Unexplained Weight Gain, Unexplained Weight Loss, Other Hematology/Lymphatic: denies: No Symptoms, Easily Bruised, Excessive Bleeding, Swollen Glands, Other Psychiatric: denies: No Symptoms, Altered Sleep Pattern, Anxiety, Depression, Hallucinations, Panic, Paranoia, Suicidal, Other - Risk Factors Known Risk Factors: Yes: Diabetes Mellitus, Hypercholesterolemia, Other (CKD) Vital Signs: Vital Signs Temperature 97.8 F 02/04/19 04:00 Pulse Rate 70 02/04/19 04:00 Respiratory Rate 20 02/04/19 04:00 Blood Pressure 155/68 02/04/19 04:00 O2 Sat by Pulse Oximetry (%) 98 02/04/19 07:47 Constitutional: Yes: Well Nourished Eyes: Yes: Conjunctiva Clear HENT: Yes: Atraumatic Neck: Yes: Other (JVD) Respiratory: Yes: Other (rales at bases) Gastrointestinal: Yes: Soft Renal/: Yes: Other (left AV fistula) Cardiovascular: Yes: Regular Rate and Rhythm (+ S4) JVD: Yes Carotid Bruit: No PMI: Non-Displaced Heart Sounds: Yes: S1, S2, S4 Edema: No Peripheral Pulses WNL: Yes Neurological: Yes: Alert, Oriented - Other Data Labs, Other Data: CBC, BMP 02/04/19 05:30 02/04/19 05:30 INR, PTT INR 1.16 (0.83-1.09) H 02/03/19 18:10 Troponin, BNP 02/03/19 02/04/19 02/04/19 18:10 02:00 05:30 Troponin I 0.06 H 0.17 H 0.17 H B-Natriuretic Peptide 99338.9 H Troponin, BNP 02/03/19 02/04/19 02/04/19 18:10 02:00 05:30 Troponin I 0.06 H 0.17 H 0.17 H B-Natriuretic Peptide 42149.9 H Laboratory Tests 02/03/19 02/03/19 02/04/19 18:10 18:33 02:00 WBC Hgb Plt Count PTT (Actin FS) ABG pH 7.35 ABG pCO2 at Pt Temp 36.4 ABG O2 Sat (Measured) 98.6 H Sodium BUN Creatinine AST ALT Troponin I 0.06 H 0.17 H B-Natriuretic Peptide 63142.9 H 02/04/19 02/04/19 02/04/19 02:40 05:30 05:30 WBC 6.7 Hgb 10.8 L Plt Count 266 PTT (Actin FS) 75.6 H ABG pH ABG pCO2 at Pt Temp ABG O2 Sat (Measured) Sodium 143 BUN 80 H Creatinine 4.0 H AST 4 L ALT 10 L Troponin I 0.17 H B-Natriuretic Peptide Atrial fibrillation 109bpm. LVH. Diffuse NSST changes Echo: Pending Imaging - Results Chest X-ray: Image Reviewed (Cardiomegaly and slight increased PVC) EKG: Image Reviewed Problem List - Problems (1) Acute pulmonary edema Code(s): J81.0 - ACUTE PULMONARY EDEMA (2) Hypertensive urgency Code(s): I16.0 - HYPERTENSIVE URGENCY (3) Diabetes Code(s): E11.9 - TYPE 2 DIABETES MELLITUS WITHOUT COMPLICATIONS Qualifiers: Diabetes mellitus type: type 2 Diabetes mellitus complication status: without complication (4) Chronic renal failure Code(s): N18.9 - CHRONIC KIDNEY DISEASE, UNSPECIFIED Qualifiers: Chronic kidney disease stage: stage 4 (severe) Qualified Code(s): N18.4 - Chronic kidney disease, stage 4 (severe) Assessment/Plan IMP: CKD, stage 3/4 Hypertensive urgency precipitating acute,decompensated CHF (unknown if systolic vs diastolic) Suspected hypertensive heart disease Atrial fibrillation Diabetes REC: 1. To continue IV Lasix with close monitoring of renal function and daily weights. 2. Now that clinically improved and more euvolemic, can re-introduce Carvedilol at lower dose and try wean nitro gtts. YESSICA/ARB contraindicated with current GFR As nitro gtts is weaned off, Isordil/hydralazine combo would be helpful. 3. AF seems to be controlled. Adding beta blockade. [id number] score is elevated and merits AC. Currently on UFH gtts, can be transitioned to Eliquis during this admission. 4. Will need ischemic w/u with Lexiscan MPI prior to discharge. 5. The equivocal TnIs (flat) are likely all due to CHF and possible subendocardial ischemia from uncontrolled HTN, unlikely ACS. Coverage for Jose
[2019-02-04] MEDS ORDERED: ASPIRIN COATED 81 MG TABLET.EC PO SCH (10:00)
[2019-02-04] MEDS ORDERED: PNEUMOC 13-VAL CONJ-DIP CRM/PF 0.5 ML DISP.SYRIN IM ONE (10:00)
[2019-02-04] MEDS ORDERED: NITROGLYCERIN 25MG/D5W 250ML 25 MG/250 ML ML IVPB SCH (10:52)
--- NOTE | 2019-02-04 10:54 | PN ---
Physical Exam: SUBJECTIVE: Patient seen and examined, denies any dyspnea currently. No chest pain, headache or new concerns. Voiding currently. Stressed need for Strict I/ Os. OBJECTIVE: Vital Signs Period Temp Pulse Resp BP Sys/Patiño Pulse Ox Last 24 Hr 97.4 F-98.5 F 65-115 18-22 140-167/62-102 97-100 Intake & Output 02/01/19 02/02/19 02/03/19 02/04/19 23:59 23:59 23:59 23:59 Intake Total 482 Output Total 500 Balance -18 Weight 198 lb 6.4 oz GENERAL: The patient is awake, alert, and fully oriented, in no acute distress. HEAD: Normal with no signs of trauma. EYES: PERRL, extraocular movements intact, sclera anicteric, conjunctiva clear. No ptosis. NECK: soft, supple, neck vein distension noted LUNGS: Breath sounds equal, clear to auscultation bilaterally, no wheezes, no crackles, no accessory muscle use. HEART: Regular rate and rhythm, S1, S2 currently ABDOMEN: Soft, nontender, nondistended, normoactive bowel sounds, no guarding, no rebound EXTREMITIES: trace pedal edema, warm, well perfused NEUROLOGICAL: Cranial nerves II through XII grossly intact. Normal speech, gait not observed. PSYCH: Normal mood, normal affect. SKIN: Warm, dry, normal turgor, no rashes or lesions noted Laboratory Results - last 24 hr 02/03/19 02/03/19 02/03/19 05:30 18:10 18:10 WBC 10.0 RBC 3.92 L Hgb 11.7 Hct 34.2 L MCV 87.2 MCH 29.9 MCHC 34.3 RDW 15.4 Plt Count 266 MPV 8.0 Absolute Neuts (auto) 8.1 H Neutrophils % 80.2 Lymphocytes % 7.9 L Monocytes % 7.8 Eosinophils % 3.5 Basophils % 0.6 Nucleated RBC % 0 PT with INR 13.70 H INR 1.16 H PTT (Actin FS) 32.5 Anticoagulation Therapy Puncture Site ABG pH ABG pCO2 at Pt Temp ABG pO2 at Pt Temp ABG HCO3 ABG O2 Sat (Measured) ABG O2 Content ABG Base Excess Stan Test Carboxyhemoglobin Methemoglobin O2 Delivery Device Oxygen Flow Rate Vent Mode Vent Rate Mechanical Rate Pressure Support Vent Sodium Potassium Chloride Carbon Dioxide Anion Gap BUN Creatinine Creat Clearance w eGFR POC Glucometer Random Glucose Calcium Phosphorus Magnesium Total Bilirubin AST ALT Alkaline Phosphatase Creatine Kinase Troponin I B-Natriuretic Peptide Total Protein Albumin Urine Color Urine Appearance Urine pH Ur Specific Watts Urine Protein Urine Glucose (UA) Urine Ketones Urine Blood Urine Nitrite Urine Bilirubin Urine Urobilinogen Ur Leukocyte Esterase Urine WBC (Auto) Urine RBC (Auto) Urine Mucus Blood Type O POSITIVE Antibody Screen 02/03/19 02/03/19 02/03/19 18:10 18:10 18:33 WBC RBC Hgb Hct MCV MCH MCHC RDW Plt Count MPV Absolute Neuts (auto) Neutrophils % Lymphocytes % Monocytes % Eosinophils % Basophils % Nucleated RBC % PT with INR Cancelled INR Cancelled PTT (Actin FS) Anticoagulation Therapy No Result Required. Puncture Site No Result Required. ABG pH 7.35 ABG pCO2 at Pt Temp 36.4 ABG pO2 at Pt Temp 143 H ABG HCO3 19.5 L ABG O2 Sat (Measured) 98.6 H ABG O2 Content 16.5 ABG Base Excess -5.0 L Stan Test No Result Required. Carboxyhemoglobin 0.7 Methemoglobin 0.3 O2 Delivery Device No Result Required. Oxygen Flow Rate No Result Required. Vent Mode No Result Required. Vent Rate No Result Required. Mechanical Rate No Result Required. Pressure Support Vent No Result Required. Sodium 142 Potassium 4.0 Chloride 110 H Carbon Dioxide 20 L Anion Gap 12 BUN 79 H Creatinine 3.9 H Creat Clearance w eGFR 14.77 POC Glucometer Random Glucose 154 H Calcium 8.6 Phosphorus 4.1 Magnesium 2.6 H Total Bilirubin 0.5 AST 5 L ALT 12 L Alkaline Phosphatase 70 Creatine Kinase 42 Troponin I 0.06 H B-Natriuretic Peptide 47499.9 H Total Protein 6.5 Albumin 3.6 Urine Color Urine Appearance Urine pH Ur Specific Watts Urine Protein Urine Glucose (UA) Urine Ketones Urine Blood Urine Nitrite Urine Bilirubin Urine Urobilinogen Ur Leukocyte Esterase Urine WBC (Auto) Urine RBC (Auto) Urine Mucus Blood Type Antibody Screen 02/03/19 02/03/19 02/03/19 20:45 21:53 22:51 WBC RBC Hgb Hct MCV MCH MCHC RDW Plt Count MPV Absolute Neuts (auto) Neutrophils % Lymphocytes % Monocytes % Eosinophils % Basophils % Nucleated RBC % PT with INR INR PTT (Actin FS) Anticoagulation Therapy Puncture Site ABG pH ABG pCO2 at Pt Temp ABG pO2 at Pt Temp ABG HCO3 ABG O2 Sat (Measured) ABG O2 Content ABG Base Excess Stan Test Carboxyhemoglobin Methemoglobin O2 Delivery Device Oxygen Flow Rate Vent Mode Vent Rate Mechanical Rate Pressure Support Vent Sodium Potassium Chloride Carbon Dioxide Anion Gap BUN Creatinine Creat Clearance w eGFR POC Glucometer 176 Random Glucose Calcium Phosphorus Magnesium Total Bilirubin AST ALT Alkaline Phosphatase Creatine Kinase Troponin I B-Natriuretic Peptide Total Protein Albumin Urine Color Straw Urine Appearance Clear Urine pH 5.0 Ur Specific Watts 1.009 L Urine Protein 2+ H Urine Glucose (UA) 1+ H Urine Ketones Negative Urine Blood 1+ H Urine Nitrite Negative Urine Bilirubin Negative Urine Urobilinogen Negative Ur Leukocyte Esterase Negative Urine WBC (Auto) 1 Urine RBC (Auto) 1 Urine Mucus Rare Blood Type O POSITIVE Antibody Screen Negative 02/04/19 02/04/19 02/04/19 02:00 02:40 05:30 WBC 6.7 RBC 3.64 L Hgb 10.8 L Hct 31.4 L MCV 86.1 MCH 29.7 MCHC 34.5 RDW 15.5 Plt Count 266 MPV 8.0 Absolute Neuts (auto) 4.2 Neutrophils % 62.9 D Lymphocytes % 18.2 D Monocytes % 13.0 H Eosinophils % 5.0 H Basophils % 0.9 Nucleated RBC % 0 PT with INR INR PTT (Actin FS) 75.6 H Anticoagulation Therapy Puncture Site ABG pH ABG pCO2 at Pt Temp ABG pO2 at Pt Temp ABG HCO3 ABG O2 Sat (Measured) ABG O2 Content ABG Base Excess Stan Test Carboxyhemoglobin Methemoglobin O2 Delivery Device Oxygen Flow Rate Vent Mode Vent Rate Mechanical Rate Pressure Support Vent Sodium Potassium Chloride Carbon Dioxide Anion Gap BUN Creatinine Creat Clearance w eGFR POC Glucometer Random Glucose Calcium Phosphorus Magnesium Total Bilirubin AST ALT Alkaline Phosphatase Creatine Kinase Troponin I 0.17 H B-Natriuretic Peptide Total Protein Albumin Urine Color Urine Appearance Urine pH Ur Specific Watts Urine Protein Urine Glucose (UA) Urine Ketones Urine Blood Urine Nitrite Urine Bilirubin Urine Urobilinogen Ur Leukocyte Esterase Urine WBC (Auto) Urine RBC (Auto) Urine Mucus Blood Type Antibody Screen 02/04/19 02/04/19 05:30 06:02 WBC RBC Hgb Hct MCV MCH MCHC RDW Plt Count MPV Absolute Neuts (auto) Neutrophils % Lymphocytes % Monocytes % Eosinophils % Basophils % Nucleated RBC % PT with INR INR PTT (Actin FS) Anticoagulation Therapy Puncture Site ABG pH ABG pCO2 at Pt Temp ABG pO2 at Pt Temp ABG HCO3 ABG O2 Sat (Measured) ABG O2 Content ABG Base Excess Stan Test Carboxyhemoglobin Methemoglobin O2 Delivery Device Oxygen Flow Rate Vent Mode Vent Rate Mechanical Rate Pressure Support Vent Sodium 143 Potassium 4.0 Chloride 111 H Carbon Dioxide 22 Anion Gap 9 BUN 80 H Creatinine 4.0 H Creat Clearance w eGFR 14.34 POC Glucometer 118 Random Glucose 113 H Calcium 8.1 L Phosphorus 4.1 Magnesium 2.4 Total Bilirubin 0.5 AST 4 L ALT 10 L Alkaline Phosphatase 65 Creatine Kinase Troponin I 0.17 H B-Natriuretic Peptide Total Protein 6.0 L Albumin 3.3 L Urine Color Urine Appearance Urine pH Ur Specific Watts Urine Protein Urine Glucose (UA) Urine Ketones Urine Blood Urine Nitrite Urine Bilirubin Urine Urobilinogen Ur Leukocyte Esterase Urine WBC (Auto) Urine RBC (Auto) Urine Mucus Blood Type Antibody Screen Home Medications Medication Instructions Recorded Aspirin [Ecotrin] 81 mg PO DAILY 08/29/18 Atorvastatin Ca [Lipitor] 20 mg PO HS 08/29/18 Carvedilol [Coreg -] 12.5 mg PO BID 08/29/18 Cholecalciferol (Vitamin D3) 400 unit PO DAILY 08/29/18 [Vitamin D3 -] Ferric Citrate [Auryxia] 210 mg PO BID 08/29/18 Furosemide [Lasix] 80 mg PO DAILY 08/29/18 Glimepiride [Amaryl -] 1 mg PO DAILY 08/29/18 Nifedipine [Nifedipine ER] 60 mg PO BID 08/29/18 Sodium Bicarbonate - 650 mg PO DAILY 08/29/18 Tamsulosin HCl [Flomax] 0.4 mg PO DAILY 08/29/18 Active Medications Atorvastatin Calcium (Lipitor -) 20 mg PO HS [facility] Last Admin: 02/03/19 23:33 Dose: 20 mg Carvedilol (Coreg -) 3.125 mg PO BID [facility] Cholecalciferol (Vitamin D3 -) 400 unit PO DAILY [facility] Furosemide (Lasix Injection -) 40 mg IVPUSH BID@0600,1400 [facility] Last Admin: 02/04/19 06:24 Dose: 40 mg Heparin Sodium (Porcine) (Heparin -) 1,000 unit IVPUSH PRN PRN PRN Reason: Heparin Heparin Sodium (Porcine) (Heparin -) 5,000 unit IVPUSH PRN PRN PRN Reason: Heparin Last Admin: 02/03/19 21:49 Dose: 5,000 unit Heparin Sodium/Dextrose (Heparin Infusion -) 25,000 units in 500 mls @ 20 mls/ hr IVPB TITR [facility]; Protocol Last Titration: 02/04/19 03:47 Dose: 1,000 units/hr, 20 mls/hr Nitroglycerin/Dextrose (Nitroglycerin 25mg/D5w 250ml) 25 mg in 250 mls @ 1.8 mls/hr IVPB TITR [facility]; Protocol Insulin Aspart (Novolog Vial Sliding Scale -) 1 vial SQ ACHS [facility]; Protocol Last Admin: 02/04/19 06:24 Dose: Not Given Non-Formulary Medication (Ferric Citrate [Auryxia]) 210 mg PO BID [facility] Tamsulosin HCl (Flomax -) 0.4 mg PO DAILY@0830 [facility] Last Admin: 02/04/19 09:33 Dose: 0.4 mg Laboratory Results - last 24 hr 02/03/19 02/03/19 02/03/19 05:30 18:10 18:10 WBC 10.0 RBC 3.92 L Hgb 11.7 Hct 34.2 L MCV 87.2 MCH 29.9 MCHC 34.3 RDW 15.4 Plt Count 266 MPV 8.0 Absolute Neuts (auto) 8.1 H Neutrophils % 80.2 Lymphocytes % 7.9 L Monocytes % 7.8 Eosinophils % 3.5 Basophils % 0.6 Nucleated RBC % 0 PT with INR 13.70 H INR 1.16 H PTT (Actin FS) 32.5 Anticoagulation Therapy Puncture Site ABG pH ABG pCO2 at Pt Temp ABG pO2 at Pt Temp ABG HCO3 ABG O2 Sat (Measured) ABG O2 Content ABG Base Excess Stan Test Carboxyhemoglobin Methemoglobin O2 Delivery Device Oxygen Flow Rate Vent Mode Vent Rate Mechanical Rate Pressure Support Vent Sodium Potassium Chloride Carbon Dioxide Anion Gap BUN Creatinine Creat Clearance w eGFR POC Glucometer Random Glucose Calcium Phosphorus Magnesium Total Bilirubin AST ALT Alkaline Phosphatase Creatine Kinase Troponin I B-Natriuretic Peptide Total Protein Albumin Urine Color Urine Appearance Urine pH Ur Specific Watts Urine Protein Urine Glucose (UA) Urine Ketones Urine Blood Urine Nitrite Urine Bilirubin Urine Urobilinogen Ur Leukocyte Esterase Urine WBC (Auto) Urine RBC (Auto) Urine Mucus Blood Type O POSITIVE Antibody Screen 02/03/19 02/03/19 02/03/19 18:10 18:10 18:33 WBC RBC Hgb Hct MCV MCH MCHC RDW Plt Count MPV Absolute Neuts (auto) Neutrophils % Lymphocytes % Monocytes % Eosinophils % Basophils % Nucleated RBC % PT with INR Cancelled INR Cancelled PTT (Actin FS) Anticoagulation Therapy No Result Required. Puncture Site No Result Required. ABG pH 7.35 ABG pCO2 at Pt Temp 36.4 ABG pO2 at Pt Temp 143 H ABG HCO3 19.5 L ABG O2 Sat (Measured) 98.6 H ABG O2 Content 16.5 ABG Base Excess -5.0 L Stan Test No Result Required. Carboxyhemoglobin 0.7 Methemoglobin 0.3 O2 Delivery Device No Result Required. Oxygen Flow Rate No Result Required. Vent Mode No Result Required. Vent Rate No Result Required. Mechanical Rate No Result Required. Pressure Support Vent No Result Required. Sodium 142 Potassium 4.0 Chloride 110 H Carbon Dioxide 20 L Anion Gap 12 BUN 79 H Creatinine 3.9 H Creat Clearance w eGFR 14.77 POC Glucometer Random Glucose 154 H Calcium 8.6 Phosphorus 4.1 Magnesium 2.6 H Total Bilirubin 0.5 AST 5 L ALT 12 L Alkaline Phosphatase 70 Creatine Kinase 42 Troponin I 0.06 H B-Natriuretic Peptide 63832.9 H Total Protein 6.5 Albumin 3.6 Urine Color Urine Appearance Urine pH Ur Specific Watts Urine Protein Urine Glucose (UA) Urine Ketones Urine Blood Urine Nitrite Urine Bilirubin Urine Urobilinogen Ur Leukocyte Esterase Urine WBC (Auto) Urine RBC (Auto) Urine Mucus Blood Type Antibody Screen 02/03/19 02/03/19 02/03/19 20:45 21:53 22:51 WBC RBC Hgb Hct MCV MCH MCHC RDW Plt Count MPV Absolute Neuts (auto) Neutrophils % Lymphocytes % Monocytes % Eosinophils % Basophils % Nucleated RBC % PT with INR INR PTT (Actin FS) Anticoagulation Therapy Puncture Site ABG pH ABG pCO2 at Pt Temp ABG pO2 at Pt Temp ABG HCO3 ABG O2 Sat (Measured) ABG O2 Content ABG Base Excess Stan Test Carboxyhemoglobin Methemoglobin O2 Delivery Device Oxygen Flow Rate Vent Mode Vent Rate Mechanical Rate Pressure Support Vent Sodium Potassium Chloride Carbon Dioxide Anion Gap BUN Creatinine Creat Clearance w eGFR POC Glucometer 176 Random Glucose Calcium Phosphorus Magnesium Total Bilirubin AST ALT Alkaline Phosphatase Creatine Kinase Troponin I B-Natriuretic Peptide Total Protein Albumin Urine Color Straw Urine Appearance Clear Urine pH 5.0 Ur Specific Watts 1.009 L Urine Protein 2+ H Urine Glucose (UA) 1+ H Urine Ketones Negative Urine Blood 1+ H Urine Nitrite Negative Urine Bilirubin Negative Urine Urobilinogen Negative Ur Leukocyte Esterase Negative Urine WBC (Auto) 1 Urine RBC (Auto) 1 Urine Mucus Rare Blood Type O POSITIVE Antibody Screen Negative 02/04/19 02/04/19 02/04/19 02:00 02:40 05:30 WBC 6.7 RBC 3.64 L Hgb 10.8 L Hct 31.4 L MCV 86.1 MCH 29.7 MCHC 34.5 RDW 15.5 Plt Count 266 MPV 8.0 Absolute Neuts (auto) 4.2 Neutrophils % 62.9 D Lymphocytes % 18.2 D Monocytes % 13.0 H Eosinophils % 5.0 H Basophils % 0.9 Nucleated RBC % 0 PT with INR INR PTT (Actin FS) 75.6 H Anticoagulation Therapy Puncture Site ABG pH ABG pCO2 at Pt Temp ABG pO2 at Pt Temp ABG HCO3 ABG O2 Sat (Measured) ABG O2 Content ABG Base Excess Stan Test Carboxyhemoglobin Methemoglobin O2 Delivery Device Oxygen Flow Rate Vent Mode Vent Rate Mechanical Rate Pressure Support Vent Sodium Potassium Chloride Carbon Dioxide Anion Gap BUN Creatinine Creat Clearance w eGFR POC Glucometer Random Glucose Calcium Phosphorus Magnesium Total Bilirubin AST ALT Alkaline Phosphatase Creatine Kinase Troponin I 0.17 H B-Natriuretic Peptide Total Protein Albumin Urine Color Urine Appearance Urine pH Ur Specific Watts Urine Protein Urine Glucose (UA) Urine Ketones Urine Blood Urine Nitrite Urine Bilirubin Urine Urobilinogen Ur Leukocyte Esterase Urine WBC (Auto) Urine RBC (Auto) Urine Mucus Blood Type Antibody Screen 02/04/19 02/04/19 05:30 06:02 WBC RBC Hgb Hct MCV MCH MCHC RDW Plt Count MPV Absolute Neuts (auto) Neutrophils % Lymphocytes % Monocytes % Eosinophils % Basophils % Nucleated RBC % PT with INR INR PTT (Actin FS) Anticoagulation Therapy Puncture Site ABG pH ABG pCO2 at Pt Temp ABG pO2 at Pt Temp ABG HCO3 ABG O2 Sat (Measured) ABG O2 Content ABG Base Excess Stan Test Carboxyhemoglobin Methemoglobin O2 Delivery Device Oxygen Flow Rate Vent Mode Vent Rate Mechanical Rate Pressure Support Vent Sodium 143 Potassium 4.0 Chloride 111 H Carbon Dioxide 22 Anion Gap 9 BUN 80 H Creatinine 4.0 H Creat Clearance w eGFR 14.34 POC Glucometer 118 Random Glucose 113 H Calcium 8.1 L Phosphorus 4.1 Magnesium 2.4 Total Bilirubin 0.5 AST 4 L ALT 10 L Alkaline Phosphatase 65 Creatine Kinase Troponin I 0.17 H B-Natriuretic Peptide Total Protein 6.0 L Albumin 3.3 L Urine Color Urine Appearance Urine pH Ur Specific Watts Urine Protein Urine Glucose (UA) Urine Ketones Urine Blood Urine Nitrite Urine Bilirubin Urine Urobilinogen Ur Leukocyte Esterase Urine WBC (Auto) Urine RBC (Auto) Urine Mucus Blood Type Antibody Screen CXR results reviewed Telemetry: reverted to NSR around 4 AM today ASSESSMENT/PLAN: 83 yom with PMhx of CKD stage IV s/p AV fistula 07/2018, not on HD, admitted with hypertensive emergency, and acute CHF -Hypertensive emergency -Acute decompensated heart failure (?systolic vs diastolic) -New onset afib with RVR -CKD stage IV s/p AV fistula, not on HD -Elevated troponin, suspect demand induced, type II NSTEMI from above rather than ACS -NIDDM -HLD Plan: Clinically improved. cardiology input noted. lasix 40 mg IV BID with strict I/Os (patient declines key, agrees to comply with strict I/os) resume coreg at lower dose. taper NTG to off today as tolerated (discussed with nursing). transition to isordil/hydralazine as tolerated. reverted to NSR this AM. Heparin drip. Follow up 2D echo. Await renal input. Cr overall unchanged from prior. Monitor urine outpatient Hold oral hypoglycemics, ISS, diabetic diet. Continue statin. DVTPPX heparin drip as above Dispo pending clinical improvement. Plan discussed with patient, nursing, all questions answered, care co-ordinated with cardiology. Visit type - Emergency Visit Emergency Visit: Yes ED Registration Date: 02/03/19 Care time: The patient presented to the Emergency Department on the above date and was hospitalized for further evaluation of their emergent condition. - New Patient This patient is new to me today: Yes Date on this admission: 02/04/19 - Critical Care Critical Care patient: No - Discharge Referral Referred to [facility] Med P.C.: No
--- NOTE | 2019-02-04 11:07 | EKG ---
Test Reason : Blood Pressure : / mmHG Vent. Rate : 100 BPM Atrial Rate : 156 BPM P-R Int : 000 ms QRS Dur : 098 ms QT Int : 360 ms P-R-T Axes : 000 023 067 degrees QTc Int : 464 ms ATRIAL FIBRILLATION WITH PREMATURE VENTRICULAR OR ABERRANTLY CONDUCTED COMPLEXES NONSPECIFIC ST AND T WAVE ABNORMALITY ABNORMAL ECG WHEN COMPARED WITH ECG OF 03-FEB-2019 18:09, T WAVE INVERSION NO LONGER EVIDENT IN INFERIOR LEADS QT HAS LENGTHENED Confirmed by MD FLORENCIO, FARIHA ([id number]) on 02/04/2019 11:07:36 AM Referred By: Confirmed By:FARIHA MATIAS MD
--- NOTE | 2019-02-04 11:09 | EKG ---
Test Reason : Blood Pressure : / mmHG Vent. Rate : 109 BPM Atrial Rate : 093 BPM P-R Int : 000 ms QRS Dur : 100 ms QT Int : 298 ms P-R-T Axes : 000 074 -64 degrees QTc Int : 401 ms ATRIAL FIBRILLATION WITH RAPID VENTRICULAR RESPONSE ABNORMAL ECG WHEN COMPARED WITH ECG OF 13-JAN-2005 11:44, ATRIAL FIBRILLATION HAS REPLACED SINUS RHYTHM ST NOW DEPRESSED IN LATERAL LEADS T WAVE INVERSION NOW EVIDENT IN INFERIOR LEADS Confirmed by MD FLORENCIO, FARIHA ([id number]) on 02/04/2019 11:09:26 AM Referred By: Confirmed By:FARIHA MATIAS MD
[2019-02-04] MEDS: CARVEDILOL 3.125 MG TABLET (FP) PO SCH ×2 (12:33→22:15)
[2019-02-04] MEDS: CHOLECALCIFEROL (VITAMIN D3) 400 UNIT TABLET (FP) PO SCH (13:00)
--- NOTE | 2019-02-04 14:14 | CON.NEP ---
Consult Referred by:: dr rojas Reason for Consultation:: pulmonary edema. [id number] - History of Present Illness Chief Complaint: sob and htn History of Present Illness: 83 y/o known CKD 4 with maturing avf admitted with evidence of pulm edema and HTN urgency sob started suddenly while watching tv was treated with cpap denies chest pain denies noncompliance with meds or salt restriction treated overnight with iv nitro and lasix today he feels better and is without discomfort CKD, stage 3/4 Hypertensive urgency precipitating acute,decompensated CHF (unknown if systolic vs diastolic) Suspected hypertensive heart disease Atrial fibrillation Diabetes - History Source History Provided By: Patient, Medical Record Limitations to Obtaining History: No Limitations - Past Medical History Cardio/Vascular: Yes: HTN, Hyperlipdemia Pulmonary: No: Asthma, Bronchitis, Cancer, COPD, O2 Dependent, Pneumonia, Previously Intubated, Pulmonary Embolus, Pulmonary Fibrosis, Sleep Apnea, Other Gastrointestinal: No: Ascites, Cancer, Constipation, Crohn's Disease, Diverticulitis, Diverticulosis, Esophageal Varices, Gastritis, GERD, GI Bleed, Hemorrhoids, Hiatal Hernia, Inflamatory Bowel Disease, Irritable Bowel Disease, Pancreatitis, Peptic Ulcer Disease, Ulcerative Colitis, Other Renal/: Yes: Renal Inusuff Infectious Disease: No: AIDS, C-Diff, Herpes Zoster, HIV, MRSA, STD's, Tuberculosis, VREF, Other Psych: No: Addictions, Anxiety, Bipolar, Depression, Panic, Psychosis, Schizophrenia, Other Musculoskeletal: Yes: Osteoarthritis Endocrine: Yes: Diabetes Mellitus - Past Surgical History Past Surgical History: Yes: Cataract Removal, Prostatectomy - Alcohol/Substance Use Hx Alcohol Use: No - Smoking History Smoking history: Unknown if ever smoked Have you smoked in the past 12 months: No If you are a former smoker, when did you quit?: 60 years ago - Social History Usual Living Arrangement: Alone History of Recent Travel: No Home Medications - Allergies Allergies/Adverse Reactions: Allergies Allergy/AdvReac Type Severity Reaction Status Date / Time No Known Allergies Allergy Verified 02/03/19 18:11 - Home Medications Home Medications: Ambulatory Orders Aspirin [Ecotrin] 81 mg PO DAILY 08/29/18 Atorvastatin Ca [Lipitor] 20 mg PO HS 08/29/18 Carvedilol [Coreg -] 12.5 mg PO BID 08/29/18 Cholecalciferol (Vitamin D3) [Vitamin D3 -] 400 unit PO DAILY 08/29/18 Ferric Citrate [Auryxia] 210 mg PO BID 08/29/18 Furosemide [Lasix] 80 mg PO DAILY 08/29/18 Glimepiride [Amaryl -] 1 mg PO DAILY 08/29/18 Nifedipine [Nifedipine ER] 60 mg PO BID 08/29/18 Sodium Bicarbonate - 650 mg PO DAILY 08/29/18 Tamsulosin HCl [Flomax] 0.4 mg PO DAILY 08/29/18 Nephrology Consult - Height Height: 5 ft 11 in - Weight Weight: 198 lb 6.4 oz - BMI Body Mass Index (BMI): 27.6 - Lab Results CBC,BMP: CBC, BMP 02/04/19 05:30 02/04/19 05:30 Anion Gap: Anion Gap Anion Gap 9 MMOL/L (8-16) 02/04/19 05:30 - Physical Examination Vital Signs: Vital Signs Temperature 97.5 F L 02/04/19 10:00 Pulse Rate 65 02/04/19 10:00 Respiratory Rate 18 02/04/19 10:00 Blood Pressure 144/63 02/04/19 10:00 O2 Sat by Pulse Oximetry (%) 97 02/04/19 09:00 Assessment/Plan ckd4 s/p pulm edema unclear cause elevated BP is a possible cause r/o nonclinical cardiac ischemia per cardiol- equivocal TnIs (flat) are likely all due to CHF and possible subendocardial ischemia from uncontrolled HTN, unlikely ACS. afib ckd agree with plans per cardiology 1. IV Lasix 2. close monitoring of renal function 3. daily weights. 4. agree with planned resumption of carvedilol 5. considering Isordil/hydralazine combo after iv nitro is d/c 6. added beta blockade with carvedilol 7. candidate for A/C , [id number] score is elevated and merits AC. Currently on UFH gtts, can be transitioned to Eliquis during this admission. 8. ischemic w/u with Lexiscan MPI prior to discharge suggested by cardiology
[2019-02-04] MEDS ORDERED: hydrALAZINE HCL 10 MG TABLET PO ONE (17:15)
[2019-02-04] MEDS ORDERED: ISOSORBIDE DINITRATE 20 MG TABLET (FP) PO ONE (17:15)
[2019-02-04] MEDS: ISOSORBIDE DINITRATE 20 MG TABLET (FP) PO SCH (18:52)
[2019-02-04] MEDS: HEPARIN INFUSION - 25,000 UNITS/500 ML INFUS.BAG IVPB SCH (22:14)
[2019-02-04] MEDS: ATORVASTATIN CA 20 MG TABLET (FP) PO SCH (22:14)
[2019-02-05] MEDS: FUROSEMIDE 40 MG/4 ML INJECTABLE VIAL IVPUSH SCH ×2 (05:57→13:05)
[2019-02-05] MEDS: hydrALAZINE HCL 10 MG TABLET PO SCH ×4 (05:57→22:45)
[2019-02-05] MEDS: INSULIN SLIDING SCALE (NOVOLOG) 1 VIAL SQ SCH ×4 (06:00→22:46)
[2019-02-05 07:08] LABS: HEMATOCRIT 30.3 % (35.4-49); HEMOGLOBIN 10.6 GM/dL (11.7-16.9); MCH 30.1 pg (25.7-33.7); MCHC 34.9 g/dl (32.0-35.9); MEAN CELL VOLUME 86.2 fl (80-96); MEAN PLT VOLUME 7.9 fl (7.5-11.1); PLATELET COUNT 252 K/MM3 (134-434); RBC 3.51 M/mm3 (4.00-5.60); RDW 15.3 % (11.9-15.9)
[2019-02-05 07:42] LABS: ANION GAP 9 MMOL/L (8-16); BLOOD UREA NITROGEN 75 mg/dL (7-18); CALCIUM 8.5 mg/dL (8.5-10.1); CHLORIDE 109 mmol/L (98-107); CO2 22 mmol/L (21-32); GLUCOSE,RANDOM 110 mg/dL (74-106); MAGNESIUM 2.6 mg/dL (1.8-2.4); PHOSPHOROUS 4.4 mg/dL (2.5-4.9); POTASSIUM 4.3 mmol/L (3.5-5.1); SODIUM 141 mmol/L (136-145)
[2019-02-05] MEDS: TAMSULOSIN HCL 0.4 MG CAP PO SCH (08:43)
[2019-02-05] MEDS: ISOSORBIDE DINITRATE 20 MG TABLET (FP) PO SCH ×3 (08:44→17:58)
--- NOTE | 2019-02-05 09:01 | PN ---
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 Found to be in atrial fibrillation and with moderate- severely elevated BP. Markedly elevated BNP. He was given IV Lasix, Nitro gtts and IV heparin. Currently feeling improved. Denies chest pain, palpitations, fevers or chills. - Current Medication List Current Medications: Active Medications Atorvastatin Calcium (Lipitor -) 20 mg PO HS [facility] Last Admin: 02/04/19 22:14 Dose: 20 mg Carvedilol (Coreg -) 6.25 mg PO BID [facility] Cholecalciferol (Vitamin D3 -) 400 unit PO DAILY [facility] Last Admin: 02/04/19 13:00 Dose: Not Given Furosemide (Lasix Injection -) 40 mg IVPUSH BID@0600,1400 [facility] Last Admin: 02/05/19 05:57 Dose: 40 mg Heparin Sodium (Porcine) (Heparin -) 1,000 unit IVPUSH PRN PRN PRN Reason: Heparin Heparin Sodium (Porcine) (Heparin -) 5,000 unit IVPUSH PRN PRN PRN Reason: Heparin Last Admin: 02/03/19 21:49 Dose: 5,000 unit Hydralazine HCl (Apresoline -) 10 mg PO TID [facility] Last Admin: 02/05/19 05:57 Dose: 10 mg Heparin Sodium/Dextrose (Heparin Infusion -) 25,000 units in 500 mls @ 20 mls/ hr IVPB TITR [facility]; Protocol Last Admin: 02/04/19 22:14 Dose: 1,000 units/hr, 20 mls/hr Insulin Aspart (Novolog Vial Sliding Scale -) 1 vial SQ ACHS [facility]; Protocol Last Admin: 02/05/19 06:00 Dose: Not Given Isosorbide Dinitrate (Isordil -) 20 mg PO TIDISORDIL [facility] Last Admin: 02/05/19 08:44 Dose: 20 mg Non-Formulary Medication (Ferric Citrate [Auryxia]) 210 mg PO BID [facility] Tamsulosin HCl (Flomax -) 0.4 mg PO DAILY@0830 [facility] Last Admin: 02/05/19 08:43 Dose: 0.4 mg - Objective Vital Signs: Vital Signs Temperature 97.4 F L 02/05/19 05:46 Pulse Rate 77 02/05/19 05:46 Respiratory Rate 20 02/05/19 05:46 Blood Pressure 148/68 02/05/19 05:46 O2 Sat by Pulse Oximetry (%) 95 02/04/19 21:00 Eyes: Yes: WNL, Conjunctiva Clear, EOM Intact HENT: Yes: WNL, Atraumatic, Normocephalic Neck: Yes: WNL, Supple, Trachea Midline Cardiovascular: Yes: WNL, Regular Rate and Rhythm Respiratory: Yes: WNL, Regular, CTA Bilaterally Gastrointestinal: Yes: WNL, Normal Bowel Sounds Genitourinary: Yes: WNL Musculoskeletal: Yes: WNL Extremities: Yes: WNL Edema: No Integumentary: Yes: WNL Neurological: Yes: WNL, Alert, Oriented ...Motor Strength: WNL Psychiatric: Yes: WNL Labs: CBC, BMP 02/05/19 06:00 02/05/19 06:00 INR, PTT INR 1.16 (0.83-1.09) H 02/03/19 18:10 Assessment/Plan IMP: CKD, stage 3/4 Hypertensive urgency precipitating acute,decompensated CHF (unknown if systolic vs diastolic) Suspected hypertensive heart disease Atrial fibrillation Diabetes REC: 1. To continue IV Lasix with close monitoring of renal function and daily weights. 2. cont Coreg As nitro gtts is weaned off, Isordil/hydralazine combo would be helpful. 3. AF seems to be controlled. Adding beta blockade. [id number] score is elevated and merits AC. Currently on UFH gtts, can be transitioned to Eliquis during this admission. 4. Will need ischemic w/u with Lexiscan MPI prior to discharge. 5. The equivocal TnIs (flat) are likely all due to CHF and possible subendocardial ischemia from uncontrolled HTN, unlikely ACS. ECHO pending
--- NOTE | 2019-02-05 09:17 | PN ---
Teaching Attending Note Name of Resident: Marilyn Willard ATTENDING PHYSICIAN STATEMENT I saw and evaluated the patient. I reviewed the resident's note and discussed the case with the resident. I agree with the resident's findings and plan as documented with exceptions below. SUBJECTIVE: Patient seen and examined. denies any chest pain, dyspnea or concerns. Overall feels well. OBJECTIVE: Vital Signs Period Temp Pulse Resp BP Sys/Patiño Pulse Ox Last 24 Hr 97.3 F-98.5 F 65-77 18-20 144-169/63-86 95-99 Intake & Output 02/02/19 02/03/19 02/04/19 02/05/19 23:59 23:59 23:59 23:59 Intake Total 482 240 Output Total 1400 Balance -918 240 Weight 198 lb 6.4 oz 198 lb 6.4 oz 194 lb 12.8 oz General: lying flat in bed, no acute distress Neck: soft, supple, no JVD visualized Chest: CTAB, no rales or wheezing Abdomen:soft, NT, ND, positive bowel sounds Extremities: no pedal edema noted Home Medications Medication Instructions Recorded Aspirin [Ecotrin] 81 mg PO DAILY 08/29/18 Atorvastatin Ca [Lipitor] 20 mg PO HS 08/29/18 Carvedilol [Coreg -] 12.5 mg PO BID 08/29/18 Cholecalciferol (Vitamin D3) 400 unit PO DAILY 08/29/18 [Vitamin D3 -] Ferric Citrate [Auryxia] 210 mg PO BID 08/29/18 Furosemide [Lasix] 80 mg PO DAILY 08/29/18 Glimepiride [Amaryl -] 1 mg PO DAILY 08/29/18 Nifedipine [Nifedipine ER] 60 mg PO BID 08/29/18 Sodium Bicarbonate - 650 mg PO DAILY 08/29/18 Tamsulosin HCl [Flomax] 0.4 mg PO DAILY 08/29/18 Active Medications Atorvastatin Calcium (Lipitor -) 20 mg PO [facility] Last Admin: 02/04/19 22:14 Dose: 20 mg Carvedilol (Coreg -) 6.25 mg PO BID [facility] Cholecalciferol (Vitamin D3 -) 400 unit PO DAILY [facility] Last Admin: 02/04/19 13:00 Dose: Not Given Furosemide (Lasix Injection -) 40 mg IVPUSH BID@0600,1400 [facility] Last Admin: 02/05/19 05:57 Dose: 40 mg Heparin Sodium (Porcine) (Heparin -) 1,000 unit IVPUSH PRN PRN PRN Reason: Heparin Heparin Sodium (Porcine) (Heparin -) 5,000 unit IVPUSH PRN PRN PRN Reason: Heparin Last Admin: 02/03/19 21:49 Dose: 5,000 unit Hydralazine HCl (Apresoline -) 10 mg PO TID [facility] Last Admin: 02/05/19 05:57 Dose: 10 mg Heparin Sodium/Dextrose (Heparin Infusion -) 25,000 units in 500 mls @ 20 mls/ hr IVPB TITR [facility]; Protocol Last Admin: 02/04/19 22:14 Dose: 1,000 units/hr, 20 mls/hr Insulin Aspart (Novolog Vial Sliding Scale -) 1 vial SQ ACHS [facility]; Protocol Last Admin: 02/05/19 06:00 Dose: Not Given Isosorbide Dinitrate (Isordil -) 20 mg PO TIDISORDIL [facility] Last Admin: 02/05/19 08:44 Dose: 20 mg Non-Formulary Medication (Ferric Citrate [Auryxia]) 210 mg PO BID [facility] Tamsulosin HCl (Flomax -) 0.4 mg PO DAILY@0830 [facility] Last Admin: 02/05/19 08:43 Dose: 0.4 mg Laboratory Results - last 24 hr 02/03/19 02/04/19 02/04/19 05:30 12:29 17:42 WBC RBC Hgb Hct MCV MCH MCHC RDW Plt Count MPV PTT (Actin FS) Sodium Potassium Chloride Carbon Dioxide Anion Gap BUN Creatinine Creat Clearance w eGFR POC Glucometer 128 137 Random Glucose Calcium Phosphorus Magnesium Blood Type O POSITIVE 02/04/19 02/05/19 02/05/19 21:51 05:51 06:00 WBC 8.0 RBC 3.51 L Hgb 10.6 L Hct 30.3 L MCV 86.2 MCH 30.1 MCHC 34.9 RDW 15.3 Plt Count 252 MPV 7.9 PTT (Actin FS) Sodium Potassium Chloride Carbon Dioxide Anion Gap BUN Creatinine Creat Clearance w eGFR POC Glucometer 137 105 Random Glucose Calcium Phosphorus Magnesium Blood Type 02/05/19 02/05/19 06:00 06:00 WBC RBC Hgb Hct MCV MCH MCHC RDW Plt Count MPV PTT (Actin FS) 43.4 H Sodium 141 Potassium 4.3 Chloride 109 H Carbon Dioxide 22 Anion Gap 9 BUN 75 H Creatinine 4.0 H Creat Clearance w eGFR 14.34 POC Glucometer Random Glucose 110 H Calcium 8.5 Phosphorus 4.4 Magnesium 2.6 H Blood Type Telemetry Sinus rhythm with PVCs/NSVT ASSESSMENT AND PLAN: 83 yom with PMhx of CKD stage IV s/p AV fistula 07/2018, not on HD, admitted with hypertensive emergency, and acute CHF -Hypertensive emergency -Acute decompensated heart failure (?systolic vs diastolic) -New onset afib with RVR, reverted to NSR -CKD stage IV s/p AV fistula, not on HD -Elevated troponin, suspect demand induced, type II NSTEMI from above rather than ACS -NIDDM -HLD Plan: Clinically improved. cardiology input noted. lasix 40 mg IV BID with strict I/Os (patient declines key, agrees to comply with strict I/os) Off nitro drip. Started on isordil/hydralazine, titrate up as tolerated Increase coreg to 6.25 mg BID Follow up 2D echo. Lexiscan, likely tomorrow if continues to improve. Heparin drip, transition to eliquis per cardiology. Renal input noted. cr stable, voiding well. Hold oral hypoglycemics, ISS, diabetic diet. Continue statin. DVTPPX heparin drip as above Dispo planning in 1-2 days pending cardiac testing and clinical progression. Plan discussed with patient, nursing in detail, all questions answered.
[2019-02-05] MEDS: CARVEDILOL 6.25 MG TABLET (FP) PO SCH ×2 (09:44→22:45)
[2019-02-05] MEDS: CHOLECALCIFEROL (VITAMIN D3) 400 UNIT TABLET (FP) PO SCH (09:52)
--- NOTE | 2019-02-05 16:35 | PN ---
Physical Exam: SUBJECTIVE: Patient seen and examined; no new complaints denies cp, sob OBJECTIVE: Vital Signs Period Temp Pulse Resp BP Sys/Patiño Pulse Ox Last 24 Hr 97.3 F-97.9 F 66-77 18-20 148-169/65-86 95-96 GENERAL: The patient is awake, alert, and fully oriented, in no acute distress. LUNGS: Breath sounds equal, clear to auscultation bilaterally, no wheezes, no crackles, no accessory muscle use. HEART: Regular rate and rhythm, S1, S2 ABDOMEN: Soft, nontender, nondistended, normoactive bowel sounds, no guarding, no rebound, no hepatosplenomegaly, no masses. EXTREMITIES: 2+ pulses, warm, well-perfused, no edema. NEUROLOGICAL: Cranial nerves II through XII grossly intact. Normal speech, gait not observed. Laboratory Results - last 24 hr 02/04/19 02/04/19 02/05/19 17:42 21:51 05:51 WBC RBC Hgb Hct MCV MCH MCHC RDW Plt Count MPV PTT (Actin FS) Sodium Potassium Chloride Carbon Dioxide Anion Gap BUN Creatinine Creat Clearance w eGFR POC Glucometer 137 137 105 Random Glucose Calcium Phosphorus Magnesium 02/05/19 02/05/19 02/05/19 06:00 06:00 06:00 WBC 8.0 RBC 3.51 L Hgb 10.6 L Hct 30.3 L MCV 86.2 MCH 30.1 MCHC 34.9 RDW 15.3 Plt Count 252 MPV 7.9 PTT (Actin FS) 43.4 H Sodium 141 Potassium 4.3 Chloride 109 H Carbon Dioxide 22 Anion Gap 9 BUN 75 H Creatinine 4.0 H Creat Clearance w eGFR 14.34 POC Glucometer Random Glucose 110 H Calcium 8.5 Phosphorus 4.4 Magnesium 2.6 H 02/05/19 11:14 WBC RBC Hgb Hct MCV MCH MCHC RDW Plt Count MPV PTT (Actin FS) Sodium Potassium Chloride Carbon Dioxide Anion Gap BUN Creatinine Creat Clearance w eGFR POC Glucometer 114 Random Glucose Calcium Phosphorus Magnesium Active Medications Generic Name Dose Route Start Last Admin Trade Name Freq PRN Reason Stop Dose Admin Atorvastatin Calcium 20 mg 02/03/19 22:00 02/04/19 22:14 Lipitor - PO 20 mg HS [facility] Administration Carvedilol 6.25 mg 02/05/19 10:00 02/05/19 09:44 Coreg - PO 6.25 mg BID [facility] Administration Cholecalciferol 400 unit 02/04/19 10:00 02/05/19 09:52 Vitamin D3 - PO 400 unit DAILY [facility] Administration Furosemide 40 mg 02/04/19 06:00 02/05/19 13:05 Lasix Injection - IVPUSH 40 mg BID@0600,1400 [facility] Administration Heparin Sodium (Porcine) 1,000 unit 02/03/19 20:50 02/05/19 09:53 Heparin - IVPUSH 1,000 unit PRN PRN Administration Heparin Heparin Sodium (Porcine) 5,000 unit 02/03/19 20:50 02/03/19 21:49 Heparin - IVPUSH 5,000 unit PRN PRN Administration Heparin Hydralazine HCl 10 mg 02/04/19 22:00 02/05/19 13:05 Apresoline - PO 10 mg TID [facility] Administration Heparin Sodium/Dextrose 25,000 units in 500 mls @ 20 mls/hr 02/03/19 21:00 09:52 Heparin Infusion - IVPB 1,100 units/hr TITR [facility] 22 mls/hr Titration Protocol 1,000 UNITS/HR Insulin Aspart 1 vial 02/03/19 22:00 02/05/19 11:15 Novolog Vial Sliding Scale - SQ Not Given ACHS [facility] Protocol Isosorbide Dinitrate 20 mg 02/04/19 18:00 02/05/19 13:05 Isordil - PO 20 mg TIDISORDIL [facility] Administration Non-Formulary Medication 210 mg 02/03/19 22:00 Ferric Citrate [Auryxia] PO BID [facility] Tamsulosin HCl 0.4 mg 02/04/19 08:30 02/05/19 08:43 Flomax - PO 0.4 mg DAILY@0830 [facility] Administration ASSESSMENT/PLAN: This is a 83 year old male with a history stage of CKD, with AV fistula, who presented with new onset atrial fibrillation, hypertensive urgency, acute heart failure, NSTEMI. #atrial fibrillation: -rate controlled with coreg 6.25bib -AC currently on hep ggt; can switch to oral eliquis -echo -stress test prior to dc -dagoberto cardio #acute heart failure -lasix 40mg IV bid -strict I/os, daily weight -off nitro ggt -stated on isordil/hydralizine -echo #CKD; IV: -with av fistula -avoid nephrotoxin #DM: -bgm -Insulin ss #cont statin DVT ppl on hep ggt Disposition: tele Visit type - Emergency Visit Emergency Visit: Yes ED Registration Date: 02/03/19 Care time: The patient presented to the Emergency Department on the above date and was hospitalized for further evaluation of their emergent condition. - New Patient This patient is new to me today: Yes Date on this admission: 02/05/19 - Critical Care Critical Care patient: No
--- NOTE | 2019-02-05 17:09 | PN ---
Progress Note (short form) - Note Progress Note: Renal follow up for CKD and volume overload Pt seen and examined at the bedside awake and alert feels much better, no sob today slept well last night no cp, abd pain, N/V/D Vital Signs Temperature 97.8 F 02/05/19 14:00 Pulse Rate 74 02/05/19 14:00 Respiratory Rate 20 02/05/19 09:04 Blood Pressure 158/74 02/05/19 14:00 O2 Sat by Pulse Oximetry (%) 95 02/05/19 09:04 Intake & Output 02/02/19 02/03/19 02/04/19 02/05/19 23:59 23:59 23:59 23:59 Intake Total 482 1020 Output Total 1400 700 Balance -918 320 Weight 89.993 kg 89.993 kg 88.36 kg NAD CTA no edema in LE CBC, BMP 02/05/19 06:00 02/05/19 06:00 Current Medications Atorvastatin Calcium (Lipitor -) 20 mg PO HS [facility] Last Admin: 02/04/19 22:14 Dose: 20 mg Carvedilol (Coreg -) 6.25 mg PO BID [facility] Last Admin: 02/05/19 09:44 Dose: 6.25 mg Cholecalciferol (Vitamin D3 -) 400 unit PO DAILY [facility] Last Admin: 02/05/19 09:52 Dose: 400 unit Furosemide (Lasix Injection -) 40 mg IVPUSH BID@0600,1400 [facility] Last Admin: 02/05/19 13:05 Dose: 40 mg Heparin Sodium (Porcine) (Heparin -) 1,000 unit IVPUSH PRN PRN PRN Reason: Heparin Last Admin: 02/05/19 09:53 Dose: 1,000 unit Heparin Sodium (Porcine) (Heparin -) 5,000 unit IVPUSH PRN PRN PRN Reason: Heparin Last Admin: 02/03/19 21:49 Dose: 5,000 unit Hydralazine HCl (Apresoline -) 10 mg PO TID [facility] Last Admin: 02/05/19 13:05 Dose: 10 mg Heparin Sodium/Dextrose (Heparin Infusion -) 25,000 units in 500 mls @ 20 mls/ hr IVPB TITR [facility]; Protocol Last Titration: 02/05/19 09:52 Dose: 1,100 units/hr, 22 mls/hr Insulin Aspart (Novolog Vial Sliding Scale -) 1 vial SQ ACHS [facility]; Protocol Last Admin: 02/05/19 16:47 Dose: Not Given Isosorbide Dinitrate (Isordil -) 20 mg PO TIDISORDIL [facility] Last Admin: 02/05/19 13:05 Dose: 20 mg Non-Formulary Medication (Ferric Citrate [Auryxia]) 210 mg PO BID [facility] Tamsulosin HCl (Flomax -) 0.4 mg PO DAILY@0830 [facility] Last Admin: 02/05/19 08:43 Dose: 0.4 mg 83 year old man with PMH of CKD Stage 4, HTN, NIDDM and HLD here today complaining of acute onset of shortness of breath and admitted for CHF exacerbation #CKD stage 4 #Volume overload #Hypertension #Chronic Anemia Renal function stable, baseline BUN/Cr is 70/3.75 Continue Lasix, consider transition to oral in 24 hours BP is above goal, trend with diuresis no acute need for ALICIA for anemia no indication for renal replacement therapy at this time Shola Guaman DO
--- NOTE | 2019-02-05 17:53 | ECHO ---
Name: ADILENE STEVE Exam:Adult Echocardiogram Study Date: 02/05/2019 10:45 AM Age: 83 yrs Reason For Study: r/o acute hf Height: 71 in Weight: 200 lb BSA: 2.1 m2 Procedure A complete two-dimensional transthoracic echocardiogram was performed (2D, M-mode, Doppler and color flow Doppler). Left Ventricle The left ventricle is normal in size. There is moderate concentric left ventricular hypertrophy. Left ventricular systolic function is mildly reduced. Ejection Fraction = 45-50%. There is apical septal w all mild hypokinesis. There is basal inferoseptal wall mild hypokinesis. There is basal inferior wall mild hyp okinesis. Right Ventricle The right ventricle is normal size. The right ventricular systolic function is normal. Atria The left atrium is moderately dilated. The right atrium is mildly dilated. Mitral Valve The mitral valve is normal in structure and function. There is moderate mitral regurgitation. Tricuspid Valve The tricuspid valve is normal in structure and function. There is moderate tricuspid regurgitation. P ulmonary artery systolic pressure is at least 59 mmHg if RA pressure is assumed 3 mmHg. Aortic Valve There is mild aortic sclerosis.;. No aortic regurgitation is present. Pulmonic Valve The pulmonic valve is not well visualized. Great Vessels The aortic root is normal size. Pericardium/Pleura Trivial pericardial effusion not hemodynamically significant. Interpretation Summary The left ventricle is normal in size. There is moderate concentric left ventricular hypertrophy. Left ventricular systolic function is mildly reduced. There is basal inferoseptal wall mild hypokinesis. There is basal inferior wall mild hypokinesis. Ejection Fraction = 45-50%. The right ventricular systolic function is normal. The left atrium is moderately dilated. The right atrium is mildly dilated. There is moderate mitral regurgitation. There is moderate tricuspid regurgitation. Pulmonary artery systolic pressure is at least 59 mmHg if RA pressure is assumed 3 mmHg There is mild aortic sclerosis.; Trivial pericardial effusion not hemodynamically significant Previous study is not available for comparison Joselito Fermin MD 02/05/2019 05:52 PM
[2019-02-05] MEDS: HEPARIN INFUSION - 25,000 UNITS/500 ML INFUS.BAG IVPB SCH (22:45)
[2019-02-05] MEDS: ATORVASTATIN CA 20 MG TABLET (FP) PO SCH (22:46)
[2019-02-06] MEDS: FUROSEMIDE 40 MG/4 ML INJECTABLE VIAL IVPUSH SCH ×2 (06:23→15:04)
[2019-02-06] MEDS: hydrALAZINE HCL 10 MG TABLET PO SCH ×2 (06:23→15:04)
[2019-02-06] MEDS: INSULIN SLIDING SCALE (NOVOLOG) 1 VIAL SQ SCH ×3 (06:23→17:36)
[2019-02-06 06:36] LABS: HEMATOCRIT 29.3 % (35.4-49); HEMOGLOBIN 10.1 GM/dL (11.7-16.9); MCH 29.8 pg (25.7-33.7); MCHC 34.6 g/dl (32.0-35.9); MEAN PLT VOLUME 7.9 fl (7.5-11.1); PLATELET COUNT 245 K/MM3 (134-434); RDW 15.1 % (11.9-15.9); WHITE BLOOD COUNT 6.7 K/mm3 (4.0-10.0)
[2019-02-06 07:14] LABS: ANION GAP 9 MMOL/L (8-16); BLOOD UREA NITROGEN 70 mg/dL (7-18); CALCIUM 8.5 mg/dL (8.5-10.1); CHLORIDE 110 mmol/L (98-107); CO2 22 mmol/L (21-32); CREATININE 3.8 mg/dL (0.55-1.3); GLUCOSE,RANDOM 96 mg/dL (74-106); MAGNESIUM 2.5 mg/dL (1.8-2.4); PHOSPHOROUS 5.4 mg/dL (2.5-4.9); POTASSIUM 3.8 mmol/L (3.5-5.1); SODIUM 141 mmol/L (136-145)
[2019-02-06] MEDS ORDERED: CALCIUM ACETATE 667 MG CAPSULE (FP) PO SCH (08:00)
[2019-02-06] MEDS ORDERED: PT OWN MED DRAWER 7, Y5N ONE ×2 (08:15→14:59)
[2019-02-06] MEDS: CARVEDILOL 6.25 MG TABLET (FP) PO SCH ×2 (08:18→12:30)
[2019-02-06] MEDS: ISOSORBIDE DINITRATE 20 MG TABLET (FP) PO SCH ×3 (09:09→18:11)
[2019-02-06] MEDS ORDERED: REGADENOSON 0.4 MG/5 ML PRE-FILLED SYRINGE IVPUSH ONE ×2 (09:27→09:45)
[2019-02-06] MEDS ORDERED: APIXABAN 2.5 MG TABLET PO SCH (10:00)
--- NOTE | 2019-02-06 10:30 | PN ---
Physical Exam: SUBJECTIVE: Patient seen and examined; no acute events; denies chest pain, sob; hep ggt turned of this am; start eliquis; going for lexiscan. OBJECTIVE: Vital Signs Period Temp Pulse Resp BP Sys/Patiño Pulse Ox Last 24 Hr 95.9 F-97.8 F 64-87 18-20 147-183/64-82 95-95 GENERAL: The patient is awake, alert, and fully oriented, in no acute distress. LUNGS: Breath sounds equal, clear to auscultation bilaterally, no wheezes, no crackles, no accessory muscle use. HEART: Regular rate and rhythm, S1, S2 without murmur, rub or gallop. ABDOMEN: Soft, nontender, nondistended, normoactive bowel sounds, no guarding, no rebound, no hepatosplenomegaly, no masses. EXTREMITIES: 2+ pulses, warm, well-perfused, no edema. NEUROLOGICAL: Cranial nerves II through XII grossly intact. Normal speech, gait not observed. Laboratory Results - last 24 hr 02/05/19 02/05/19 02/05/19 11:14 15:30 16:45 WBC RBC Hgb Hct MCV MCH MCHC RDW Plt Count MPV PTT (Actin FS) 51.7 H Sodium Potassium Chloride Carbon Dioxide Anion Gap BUN Creatinine Creat Clearance w eGFR POC Glucometer 114 146 Random Glucose Calcium Phosphorus Magnesium 02/05/19 02/06/19 02/06/19 22:41 05:30 05:30 WBC 6.7 RBC 3.40 L Hgb 10.1 L Hct 29.3 L MCV 86.0 MCH 29.8 MCHC 34.6 RDW 15.1 Plt Count 245 MPV 7.9 PTT (Actin FS) 46.3 H Sodium Potassium Chloride Carbon Dioxide Anion Gap BUN Creatinine Creat Clearance w eGFR POC Glucometer 147 Random Glucose Calcium Phosphorus Magnesium 02/06/19 02/06/19 05:30 05:57 WBC RBC Hgb Hct MCV MCH MCHC RDW Plt Count MPV PTT (Actin FS) Sodium 141 Potassium 3.8 Chloride 110 H Carbon Dioxide 22 Anion Gap 9 BUN 70 H Creatinine 3.8 H Creat Clearance w eGFR 15.22 POC Glucometer 97 Random Glucose 96 Calcium 8.5 Phosphorus 5.4 H Magnesium 2.5 H Active Medications Generic Name Dose Route Start Last Admin Trade Name Freq PRN Reason Stop Dose Admin Apixaban 2.5 mg 03/19/19 10:00 02/06/19 09:10 Eliquis - PO 2.5 mg BID [facility] Administration Atorvastatin Calcium 20 mg 02/03/19 22:00 02/05/19 22:46 Lipitor - PO 20 mg HS [facility] Administration Carvedilol 6.25 mg 02/05/19 10:00 02/06/19 08:18 Coreg - PO 6.25 mg BID [facility] Administration Cholecalciferol 400 unit 02/04/19 10:00 02/05/19 09:52 Vitamin D3 - PO 400 unit DAILY [facility] Administration Furosemide 40 mg 02/04/19 06:00 02/06/19 06:23 Lasix Injection - IVPUSH 40 mg BID@0600,1400 [facility] Administration Hydralazine HCl 10 mg 02/04/19 22:00 02/06/19 06:23 Apresoline - PO 10 mg TID [facility] Administration Insulin Aspart 1 vial 02/03/19 22:00 02/06/19 06:23 Novolog Vial Sliding Scale - SQ Not Given ACHS [facility] Protocol Isosorbide Dinitrate 20 mg 02/04/19 18:00 02/06/19 09:09 Isordil - PO 20 mg TIDISORDIL [facility] Administration Non-Formulary Medication 210 mg 02/03/19 22:00 Ferric Citrate [Auryxia] PO BID [facility] Tamsulosin HCl 0.4 mg 02/04/19 08:30 02/05/19 08:43 Flomax - PO 0.4 mg DAILY@0830 [facility] Administration ASSESSMENT/PLAN: This is a 83 year old male with a history stage of CKD, with AV fistula, who presented with new onset atrial fibrillation, hypertensive urgency, acute heart failure, NSTEMI. #new onset atrial fibrillation: -rate controlled with coreg -eliquis started today -lexiscan this am -dagoberto cardio #acute heart failure -lasix 40mg IV bid; -strict I/os, daily weight -u/o (last 24hrs 1300ml); weight to 87kg; -stated on isordil/hydralizine -echo EF 45-50%; LA dilated; basal inferior septal wall hypokinesis; pulmonary htn; trivial pericardial effusion; (not hemodynamically sig as per read); #HTN: currently uncontrolled -will increased carvedilol to home dose; 12.5 bid -cont hydralyzine 10mg tid #CKD; IV: stable -with av fistula -avoid nephrotoxin -baseline bun/cr; 70/3.75 as per renal; #anemia secondary to CKD -as per renal does not need epogen -will obtain iron studies incase of need for venofer #DM: -bgm -Insulin ss #HLD:cont statin DVT ppl on hep ggt Disposition: tele ; awaiting lexiscan Visit type - Emergency Visit Emergency Visit: Yes ED Registration Date: 02/03/19 Care time: The patient presented to the Emergency Department on the above date and was hospitalized for further evaluation of their emergent condition. - New Patient This patient is new to me today: No - Critical Care Critical Care patient: No
[2019-02-06] MEDS: TAMSULOSIN HCL 0.4 MG CAP PO SCH (12:29)
[2019-02-06] MEDS: CHOLECALCIFEROL (VITAMIN D3) 400 UNIT TABLET (FP) PO SCH (12:30)
[2019-02-06 13:32] VITALS: BMI 26.7
--- NOTE | 2019-02-06 15:25 | PN ---
Progress Note, Physician History of Present Illness: 83y white man with PM hx of chronic renal failure (pre dialysis) presents with complaint of sudden onset of sob around 2pm today while he was watching TV. Pt states he has been doing well. Denies anyassociated cp, cough, fever/chills, hemoptysis, leg sweling, orthopnea, n/v, diaphoresis, abd pain, back pain palpitations, lghtheadedness. Per EMS the patient was very hypertensive upon their arrival, had a sat that was 100% on nasal cannula that was placed by the fire department, had rales bilaterally was started on CPAP. The patient states his feeling better upon arrival. States she has never felt similar symptoms in the past. 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 - Current Medication List Current Medications: Active Medications Apixaban (Eliquis -) 2.5 mg PO BID [facility] Last Admin: 02/06/19 09:10 Dose: 2.5 mg Atorvastatin Calcium (Lipitor -) 20 mg PO HS [facility] Last Admin: 02/05/19 22:46 Dose: 20 mg Carvedilol (Coreg -) 12.5 mg PO BID [facility] Cholecalciferol (Vitamin D3 -) 400 unit PO DAILY [facility] Last Admin: 02/06/19 12:30 Dose: 400 unit Furosemide (Lasix Injection -) 40 mg IVPUSH BID@0600,1400 [facility] Last Admin: 02/06/19 15:04 Dose: 40 mg Hydralazine HCl (Apresoline -) 10 mg PO TID [facility] Last Admin: 02/06/19 15:04 Dose: 10 mg Insulin Aspart (Novolog Vial Sliding Scale -) 1 vial SQ [facility]; Protocol Last Admin: 02/06/19 12:32 Dose: Not Given Isosorbide Dinitrate (Isordil -) 20 mg PO TIDISORDIL [facility] Last Admin: 02/06/19 14:00 Dose: 20 mg Non-Formulary Medication (Ferric Citrate [Auryxia]) 210 mg PO BID [facility] Tamsulosin HCl (Flomax -) 0.4 mg PO DAILY@0830 [facility] Last Admin: 02/06/19 12:29 Dose: 0.4 mg - Objective Vital Signs: Vital Signs Temperature 97.4 F L 02/06/19 14:00 Pulse Rate 61 02/06/19 14:00 Respiratory Rate 18 02/06/19 14:00 Blood Pressure 120/67 02/06/19 14:00 O2 Sat by Pulse Oximetry (%) 95 02/05/19 22:00 Constitutional: Yes: Calm Eyes: Yes: WNL HENT: Yes: WNL Neck: Yes: WNL Cardiovascular: Yes: S1, S2 Respiratory: Yes: WNL Labs: CBC, BMP 02/06/19 05:30 02/06/19 05:30 INR, PTT INR 1.16 (0.83-1.09) H 02/03/19 18:10 Problem List - Problems (1) Diabetes Code(s): E11.9 - TYPE 2 DIABETES MELLITUS WITHOUT COMPLICATIONS Qualifiers: Diabetes mellitus type: type 2 Diabetes mellitus complication status: without complication (2) Atrial fibrillation Assessment/Plan: On carvedilol for HR contorl. Now on apixaban 2.5 mg bid for anticoagulation (reduced dose due to renal dysfunction) Code(s): I48.91 - UNSPECIFIED ATRIAL FIBRILLATION (3) Systolic CHF Assessment/Plan: Mild systolic LV dysfunction on ECHO. On carvedilol. On hydralazine and nitrate. Renal dysfunction makes ACEI or ARB problematic. F/u BUn/Cr, electrolytes, Is and oS, daily weight. Severe arthritis of knees makes it very difficult for him to even get of of a chair. He does very little exercise. Code(s): I50.20 - UNSPECIFIED SYSTOLIC (CONGESTIVE) HEART FAILURE (4) Arthritis of both knees Code(s): M17.0 - BILATERAL PRIMARY OSTEOARTHRITIS OF KNEE
--- NOTE | 2019-02-06 15:49 | PN ---
Progress Note (short form) - Note Progress Note: Renal follow up for CKD and volume overload Pt seen and examined at the bedside feels better no sob, cp, abd pain, N/V/D Vital Signs Temperature 97.4 F L 02/06/19 14:00 Pulse Rate 61 02/06/19 14:00 Respiratory Rate 18 02/06/19 14:00 Blood Pressure 120/67 02/06/19 14:00 O2 Sat by Pulse Oximetry (%) 95 02/05/19 22:00 NAD CTA no edema in LE CBC, BMP 02/06/19 05:30 02/06/19 05:30 Current Medications Apixaban (Eliquis -) 2.5 mg PO BID [facility] Last Admin: 02/06/19 09:10 Dose: 2.5 mg Atorvastatin Calcium (Lipitor -) 20 mg PO HS [facility] Last Admin: 02/05/19 22:46 Dose: 20 mg Carvedilol (Coreg -) 12.5 mg PO BID [facility] Cholecalciferol (Vitamin D3 -) 400 unit PO DAILY [facility] Last Admin: 02/06/19 12:30 Dose: 400 unit Furosemide (Lasix Injection -) 40 mg IVPUSH BID@0600,1400 [facility] Last Admin: 02/06/19 15:04 Dose: 40 mg Hydralazine HCl (Apresoline -) 10 mg PO TID [facility] Last Admin: 02/06/19 15:04 Dose: 10 mg Insulin Aspart (Novolog Vial Sliding Scale -) 1 vial SQ ACHS [facility]; Protocol Last Admin: 02/06/19 12:32 Dose: Not Given Isosorbide Dinitrate (Isordil -) 20 mg PO TIDISORDIL [facility] Last Admin: 02/06/19 14:00 Dose: 20 mg Non-Formulary Medication (Ferric Citrate [Auryxia]) 210 mg PO BID [facility] Tamsulosin HCl (Flomax -) 0.4 mg PO DAILY@0830 [facility] Last Admin: 02/06/19 12:29 Dose: 0.4 mg 83 year old man with PMH of CKD Stage 4, HTN, NIDDM and HLD here today complaining of acute onset of shortness of breath and admitted for CHF exacerbation #CKD stage 4 #Volume overload #Hypertension #Chronic Anemia Renal function stable, baseline BUN/Cr is 70/3.75 s/p ECHo and stress that was negative for discharge home today on oral diuretics as per cardiology pt to follow up with Dr. Yanez as an outpatient Shola Guaman DO
--- NOTE | 2019-02-06 15:59 | DS ---
Physical Exam: SUBJECTIVE: Patient seen and examined; no current complaints; lexiscan negative. OBJECTIVE: Vital Signs Period Temp Pulse Resp BP Sys/Patiño Pulse Ox Last 24 Hr 95.9 F-97.6 F 61-87 18-20 120-183/64-82 95-95 PHYSICAL EXAM GENERAL: The patient is awake, alert, and fully oriented, in no acute distress. LUNGS: Breath sounds equal, clear to auscultation bilaterally, no wheezes, no crackles, no accessory muscle use. HEART: Regular rate and irreg rhythm, S1, S2 without murmur, rub or gallop. ABDOMEN: Soft, nontender, nondistended, normoactive bowel sounds, no guarding, no rebound, no hepatosplenomegaly, no masses. EXTREMITIES: 2+ pulses, warm, well-perfused, no edema. NEUROLOGICAL: Cranial nerves II through XII grossly intact. Normal speech, gait not observed. PSYCH: Normal mood, normal affect. SKIN: Warm, dry, normal turgor, no rashes or lesions noted. LABS Laboratory Results - last 24 hr 02/05/19 02/05/19 02/05/19 15:30 16:45 22:41 WBC RBC Hgb Hct MCV MCH MCHC RDW Plt Count MPV PTT (Actin FS) 51.7 H Sodium Potassium Chloride Carbon Dioxide Anion Gap BUN Creatinine Creat Clearance w eGFR POC Glucometer 146 147 Random Glucose Calcium Phosphorus Magnesium 02/06/19 02/06/19 02/06/19 05:30 05:30 05:30 WBC 6.7 RBC 3.40 L Hgb 10.1 L Hct 29.3 L MCV 86.0 MCH 29.8 MCHC 34.6 RDW 15.1 Plt Count 245 MPV 7.9 PTT (Actin FS) 46.3 H Sodium 141 Potassium 3.8 Chloride 110 H Carbon Dioxide 22 Anion Gap 9 BUN 70 H Creatinine 3.8 H Creat Clearance w eGFR 15.22 POC Glucometer Random Glucose 96 Calcium 8.5 Phosphorus 5.4 H Magnesium 2.5 H 02/06/19 02/06/19 05:57 12:32 WBC RBC Hgb Hct MCV MCH MCHC RDW Plt Count MPV PTT (Actin FS) Sodium Potassium Chloride Carbon Dioxide Anion Gap BUN Creatinine Creat Clearance w eGFR POC Glucometer 97 132 Random Glucose Calcium Phosphorus Magnesium -echo EF 45-50%; LA dilated; basal inferior septal wall hypokinesis; pulmonary htn; trivial pericardial effusion; (not hemodynamically sig as per read); HOSPITAL COURSE: Date of Admission:02/03/19 Date of Discharge: 02/06/19 This is a 83 year old male with a history stage of CKD, with AV fistula, who presented with new onset atrial fibrillation, hypertensive urgency, acute heart failure, NSTEMI. HE was rate controlled with coreg. Started on heparin drip and d/c'd home with eliquis 2.5mg bid for AC. Lexiscan with adequate myocardial perfusion, mild global hypokinesis due to atrial fibrillation. Heart failure was treated with nitro drip, lasix. He will be maintained on lasix 40mg daily. Minutes to complete discharge: 40 Discharge Summary Reason For Visit: ACUTE PULMONARY EDEMA Current Active Problems Acute pulmonary edema (Acute) Arthritis of both knees (Acute) Atrial fibrillation (Acute) Diabetes (Acute) Hypertensive urgency (Acute) Systolic CHF (Acute) Condition: Stable - Instructions Diet, Activity, Other Instructions: You were admitted with high bp and fluid overload. You also were found in a new irregular heart rhythm called "atrial fibrillation". Your BP medications have been changed, you also had stress test that was negative for acute concerns. MEDICATIONS: Please note following changes in your medications: START: Imdur 60 mg daily Apixaban 2.5 mg twice daily Hydralazine 10 mg twice daily CHANGE: Lasix has been changed to 40 mg daily STOP: Nifedipine Hold Glimepiride Continue other medications as directed. FOLLOW UP: With your primary care physician in [address] Yanez in [address] [address] Campbell in 1-2 weeks. Blood work for kidneys BMP (basic Metabolic panel) in 1 week Weigh yourself daily and notify your doctor if weight gain > 3 lbs in2 days. Your blood sugars have been stable off glimepiride. You are advised to check your blood sugars before meals and at bedtime and if persistently > 150, please call your doctor or come to ED to discuss resumption of your diabetes medication Advise home BP monitoring daily till next doctor visit and notify doctor if SBP (upper reading) persistently > 140 or any reading <100 or dizziness noted. If you notice any trouble breathing, chest pain, heart racing, inability to urinate, headache or any new concerns, please call 911 or come to the ED immediately. Referrals: Francisco Javier Ulloa MD [Primary Care Provider] - Mu Campbell MD [Staff Physician] - Kamila Yanez MD [Staff Physician] - - Home Medications Comprehensive Discharge Medication List: Ambulatory Orders Aspirin [Ecotrin] 81 mg PO DAILY 08/29/18 Atorvastatin Ca [Lipitor] 20 mg PO HS 08/29/18 Carvedilol [Coreg -] 12.5 mg PO BID 08/29/18 Cholecalciferol (Vitamin D3) [Vitamin D -] 400 unit PO DAILY 08/29/18 Ferric Citrate [Auryxia] 210 mg PO BID 08/29/18 Sodium Bicarbonate - 650 mg PO DAILY 08/29/18 Tamsulosin HCl [Flomax] 0.4 mg PO DAILY 08/29/18 Apixaban [Eliquis -] 2.5 mg PO BID #60 tablet 02/06/19 Calcium Acetate [Phoslo -] 667 mg PO TIDCM #90 capsule 02/06/19 Furosemide [Lasix] 40 mg PO DAILY #30 tablet 02/06/19 Hydralazine HCl 10 mg PO BID #60 tablet 02/06/19 Isosorbide Mononitrate [Imdur -] 60 mg PO DAILY #30 tab.sr.24h 02/06/19 Lancets/Blood Glucose Strips [Fora [id number] Strp-Lnct] 1 each ASDIR # 100 combo..pkg 02/06/19 Miscellaneous Medical Supply [Glucometer Device] 1 each .ROUTE ASDIR #1 kit This patient is new to me today: Yes Date on this admission: 02/06/19 Emergency Visit: Yes ED Registration Date: 02/03/19 Care time: The patient presented to the Emergency Department on the above date and was hospitalized for further evaluation of their emergent condition. Critical Care patient: No - Discharge Referral Referred to [facility] Med P.C.: No
--- NOTE | 2019-02-06 15:59 | PN ---
Teaching Attending Note Name of Resident: Marilyn Willard ATTENDING PHYSICIAN STATEMENT I saw and evaluated the patient. I reviewed the resident's note and discussed the case with the resident. I agree with the resident's findings and plan as documented with exceptions below. SUBJECTIVE: Patient seen and examined. no complaints, eager to go home . OBJECTIVE: Vital Signs Period Temp Pulse Resp BP Sys/Patiño Pulse Ox Last 24 Hr 95.9 F-97.6 F 61-87 18-20 120-183/64-82 95-95 Intake & Output 02/03/19 02/04/19 02/05/19 02/06/19 23:59 23:59 23:59 23:59 Intake Total 482 1545 534 Output Total 1400 1300 900 Balance -918 245 -366 Weight 198 lb 6.4 oz 198 lb 6.4 oz 194 lb 12.8 oz 192 lb General: lying in bed in no acute distress Chest: CTAB, no rales or wheezing Abdomen:Soft, NT, ND Extremities: no pedal edema CVS:S1S2 irregular Telemetry: NSR, PVCs Home Medications Medication Instructions Recorded Aspirin [Ecotrin] 81 mg PO DAILY 08/29/18 Atorvastatin Ca [Lipitor] 20 mg PO HS 08/29/18 Carvedilol [Coreg -] 12.5 mg PO BID 08/29/18 Cholecalciferol (Vitamin D3) 400 unit PO DAILY 08/29/18 [Vitamin D -] Ferric Citrate [Auryxia] 210 mg PO BID 08/29/18 Sodium Bicarbonate - 650 mg PO DAILY 08/29/18 Tamsulosin HCl [Flomax] 0.4 mg PO DAILY 08/29/18 Apixaban [Eliquis -] 2.5 mg PO BID #60 tablet 02/06/19 Calcium Acetate [Phoslo -] 667 mg PO TIDCM #90 capsule 02/06/19 Furosemide [Lasix] 40 mg PO DAILY #30 tablet 02/06/19 Hydralazine HCl 10 mg PO BID #60 tablet 02/06/19 Isosorbide Mononitrate [Imdur -] 60 mg PO DAILY #30 tab.sr.24h 02/06/19 Lancets/Blood Glucose Strips [Fora 1 each ASDIR #100 combo..pkg 02/06/19 [id number] Strp-Lnct] Miscellaneous Medical Supply 1 each .ROUTE ASDIR #1 kit 02/06/19 [Glucometer Device] Laboratory Results - last 24 hr 02/05/19 02/05/19 02/05/19 15:30 16:45 22:41 WBC RBC Hgb Hct MCV MCH MCHC RDW Plt Count MPV PTT (Actin FS) 51.7 H Sodium Potassium Chloride Carbon Dioxide Anion Gap BUN Creatinine Creat Clearance w eGFR POC Glucometer 146 147 Random Glucose Calcium Phosphorus Magnesium 02/06/19 02/06/19 02/06/19 05:30 05:30 05:30 WBC 6.7 RBC 3.40 L Hgb 10.1 L Hct 29.3 L MCV 86.0 MCH 29.8 MCHC 34.6 RDW 15.1 Plt Count 245 MPV 7.9 PTT (Actin FS) 46.3 H Sodium 141 Potassium 3.8 Chloride 110 H Carbon Dioxide 22 Anion Gap 9 BUN 70 H Creatinine 3.8 H Creat Clearance w eGFR 15.22 POC Glucometer Random Glucose 96 Calcium 8.5 Phosphorus 5.4 H Magnesium 2.5 H 02/06/19 02/06/19 05:57 12:32 WBC RBC Hgb Hct MCV MCH MCHC RDW Plt Count MPV PTT (Actin FS) Sodium Potassium Chloride Carbon Dioxide Anion Gap BUN Creatinine Creat Clearance w eGFR POC Glucometer 97 132 Random Glucose Calcium Phosphorus Magnesium ASSESSMENT AND PLAN: 83 yom with PMhx of CKD stage IV s/p AV fistula 07/2018, not on HD, admitted with hypertensive emergency, and acute CHF -Hypertensive emergency -Acute decompensated heart failure (?systolic vs diastolic) -New onset afib with RVR, reverted to NSR -CKD stage IV s/p AV fistula, not on HD -Elevated troponin, suspect demand induced, type II NSTEMI from above rather than ACS -NIDDM -HLD Plan: doing well Stress test negative for concerns. 2D echo noted Discussed with Dr. Campbell. D/c on imdur/hydralazine/coreg/eliquis and lasix 40 mg daily d/c nifedipine. Blood sugars stable, hold glimepiride. patient counseled on home weight/BP and Blood glucose monitoring. Discussed outpatient follow up. D/c home today. Declines home services Discussed with nursing.
[2019-02-06 17:42] VITALS: BP 150/63; PULSE 64; TEMP 98.3
[2019-02-06] MEDS ORDERED: CARVEDILOL 12.5 MG TABLET (FP) PO SCH (22:00)
== END 2019-02-06 18:28 | disposition home or self-care (01) | DRG 280 ==
LOC: JER 18:04 → JERBED 19:55 → J4W 23:34
PROVIDERS: ADMIT Internal Medicine; ATTEND Hospitalist
DX: I13.0 Hypertensive heart and chronic kidney disease with heart failure and stage 1 through stage 4 chronic kidney disease, or unspecified chronic kidney disease (principal); I50.23 Acute on chronic systolic (congestive) heart failure; I21.A1 Myocardial infarction type 2; J81.0 Acute pulmonary edema; N18.4 Chronic kidney disease, stage 4 (severe); I16.1 Hypertensive emergency; I31.3 Pericardial effusion (noninflammatory); I48.91 Unspecified atrial fibrillation; E11.22 Type 2 diabetes mellitus with diabetic chronic kidney disease; R00.0 Tachycardia, unspecified; D63.1 Anemia in chronic kidney disease; M17.0 Bilateral primary osteoarthritis of knee
CPT/HCPCS: 36415; 36600; 71045-TC-FY; 78452-TC; 80048; 80053; 81003; 81015; 82375; 82550; 82803; 82962; 83050; 83735; 83880; 84100; 84484; 85025; 85027; 85610; 85730; 86850; 86900; 86901; 93005; 93010; 93017; 93306-TC; 94660; 99285-25; A9502; J1644; J2785

== ENCOUNTER 2019-04-10 18:20 | Inpatient (IN) | payer OTHER ==
--- NOTE | 2019-04-10 19:02 | PDOC ---
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 States that he has exertional SOB and this dry cough since this AM without chest pain, nausea, vomiting, diarrhea, fevers, chills, or other symptoms. He has been taking his medications as prescribed. 04/10/19 22:16 Past History - Past Medical History Allergies/Adverse Reactions: Allergies Allergy/AdvReac Type Severity Reaction Status Date / Time No Known Allergies Allergy Verified 02/03/19 18:11 Home Medications: Ambulatory Orders Atorvastatin Ca [Lipitor] 20 mg PO HS 08/29/18 Carvedilol [Coreg -] 12.5 mg PO BID 08/29/18 Cholecalciferol (Vitamin D3) [Vitamin D -] 2,000 unit PO DAILY 08/29/18 Ferric Citrate [Auryxia] 210 mg PO BID 08/29/18 Tamsulosin HCl [Flomax] 0.4 mg PO DAILY 08/29/18 Apixaban [Eliquis -] 2.5 mg PO BID #60 tablet 02/06/19 Calcium Acetate [Phoslo -] 667 mg PO TIDCM #90 capsule 02/06/19 Isosorbide Mononitrate [Imdur -] 60 mg PO DAILY #30 tab.sr.24h 02/06/19 Furosemide [Lasix] 80 mg PO DAILY 04/10/19 Glimepiride 500 mg PO DAILY 04/10/19 Nifedipine ER [Procardia Xl -] 60 mg PO BID 04/10/19 Cardiac Disorders: Yes (a fib) COPD: Yes CHF: Yes Diabetes: Yes Dialysis: Yes (to start soon) Disorders: Yes (renal failure/shunt on left upper arm) HTN: Yes Hypercholesterolemia: Yes - Immunization History Immunization Up to Date: Yes - Suicide/Smoking/Psychosocial Hx Smoking History: Unknown if ever smoked Have you smoked in the past 12 months: No If you are a former smoker, when did you quit?: 60 years ago Information on smoking cessation initiated: No Hx Alcohol Use: No Drug/Substance Use Hx: No Substance Use Type: None Hx Substance Use Treatment: No Review of Systems - Review of Systems Constitutional: No: Chills, Diaphoresis, Fever, Weight Stable HEENTM: No: Eye Pain, Blurred Vision, Tearing Respiratory: Yes: Cough, Shortness of Breath, SOB with Exertion, SOB at Rest. No: Wheezing, Productive cough, Hemoptysis Cardiac (ROS): No: Chest Pain, Irregular Heart Rate, Lightheadedness ABD/GI: No: Constipated, Diarrhea, Nausea, Vomiting : No: Burning, Dysuria, Discharge Musculoskeletal: No: Back Pain, Joint Pain Integumentary: No: Bruising, Erythema Neurological: No: Headache, Numbness, Paresthesia Psychiatric: No: Anxiety, Depression Hematologic/Lymphatic: No: Anemia, Blood Clots, Easy Bleeding *Physical Exam - Vital Signs Last Vital Signs Temp Pulse Resp BP Pulse Ox 97.2 F L 71 16 186/69 H 97 04/10/19 18:26 04/10/19 18:26 04/10/19 18:26 04/10/19 18:26 04/10/19 18:26 - Physical Exam General Appearance: Yes: Nourished, Appropriately Dressed. No: Apparent Distress HEENT: positive: EOMI, ALISSA, Normal ENT Inspection, Normal Voice Neck: positive: Trachea midline, Supple. negative: Tender, Normal Thyroid, Rigid Respiratory/Chest: negative: Chest Tender, Lungs Clear (expiratory wheexing and bibasilar crackles), Normal Breath Sounds, Respiratory Distress, Accessory Muscle Use Cardiovascular: positive: Regular Rhythm, Regular Rate Gastrointestinal/Abdominal: positive: Normal Bowel Sounds, Flat, Soft. negative : Tender Musculoskeletal: positive: Normal Inspection. negative: Decreased Range of Motion Extremity: positive: Normal Capillary Refill, Normal Inspection, Normal Range of Motion Integumentary: positive: Normal Color, Dry, Warm Neurologic: positive: Fully Oriented, Alert, Normal Mood/Affect, Normal Response , Motor Strength 5/5 ED Treatment Course - LABORATORY CBC & Chemistry Diagram: 04/10/19 19:40 04/10/19 19:40 Medical Decision Making - Medical Decision Making 04/10/19 22:20 83 year old male with history of CHF and ESRD (mature unused fistula in left arm ) presenting with worsening exertional SOB and bilateral crackles. BNP elevated and CXr demonstrating CHF. Given lasix 40 IV and placed on NC 2L with O2 sats in mid 90s. No concern for urgent dialysis as patient is still urinating but can get in touch with nephro if UOP inadequate. Will admit to floor for further workup. *DC/Admit/Observation/Transfer Diagnosis at time of Disposition: Acute on chronic systolic CHF (congestive heart failure) - Discharge Dispostion Condition at time of disposition: Stable Decision to Admit order: Yes - Referrals - Patient Instructions - Post Discharge Activity
[2019-04-10] MEDS ORDERED: ALBUTEROL SO4 2.5/IPRATROPIUM 0.5 INH SOL 3 ML VIAL.NEB. NEB ONE ×2 (19:53→20:09)
[2019-04-10 20:17] LABS: BASO % 0.3 % (0-2.0); EOS % 1.3 % (0-4.5); HEMATOCRIT 35.8 % (35.4-49); HEMOGLOBIN 11.5 GM/dL (11.7-16.9); MCH 28.5 pg (25.7-33.7); MCHC 32.2 g/dl (32.0-35.9); MEAN CELL VOLUME 88.6 fl (80-96); MEAN PLT VOLUME 8.2 fl (7.5-11.1); MONO % 7.2 % (3.8-10.2); NEUT % 83.2 % (42.8-82.8); PLATELET COUNT 282 K/MM3 (134-434); RBC 4.05 M/mm3 (4.00-5.60); RDW 15.4 % (11.9-15.9); WHITE BLOOD COUNT 9.7 K/mm3 (4.0-10.0)
[2019-04-10] MEDS ORDERED: FUROSEMIDE 40 MG/4 ML INJECTABLE VIAL IVPUSH ONE ×2 (20:20→22:51)
--- NOTE | 2019-04-10 20:22 | PDOC ---
Documentation entered by Nemo Welch SCRIBE, acting as scribe for Kailna Tadeo MD. Kalina Tadeo MD: This documentation has been prepared by the dana, Nemo Welch SCRIBE, under my direction and personally reviewed by me in its entirety. I confirm that the documentation accurately reflects all work, treatment, procedures, and medical decision making performed by me. Attending Attestation - Resident Resident Name: Leyla Finn - ED Attending Attestation I have performed the following: I have examined & evaluated the patient, The case was reviewed & discussed with the resident, I agree w/resident's findings & plan, Exceptions are as noted - HPI HPI: 04/10/19 19:57 The patient is a 83 year old male, with a significant PMH of CKD Stage 3/4 ( fistula placed, not on dialysis yet), HTN, DM, CHF, afib and HLD who presents to the emergency department via EMS with SOB since this morning. As per EMS, patient received 1 albuterol. As per daughter, the patient is endorsing worsening SOB and congested cough, however, when the daughter saw the patient on Tuesday he was not coughing. The patient denies chest pain, or dizziness. The patient denies fever, chills, nausea, vomiting, diarrhea or constipation. The patient denies dysuria, frequency, urgency or hematuria. Allergy: NKDA Surgical History: Social History: None reported PCP: Francisco Javier Daniel Renal: Dr. Webster Vascular: Dr. Contreras - Physicial Exam PE: 04/10/19 19:58 GENERAL: Awake, alert, and fully oriented, in no acute distress HEAD: No signs of trauma EYES: PERRLA, EOMI, sclera anicteric, conjunctiva clear ENT: Auricles normal inspection, hearing grossly normal, nares patent, oropharynx clear without exudates. Moist mucosa NECK: (+) JVD. Normal ROM, supple, no lymphadenopathy, or masses LUNGS: Breath sounds equal, clear to auscultation bilaterally. No wheezes, and no crackles HEART:(+) bilateral rales. Regular rate and rhythm, normal S1 and S2, no murmurs , rubs or gallops ABDOMEN: Soft, nontender, normoactive bowel sounds. No guarding, no rebound. No masses EXTREMITIES: (+) thrill and bruit L arm dialysis access. Normal range of motion , no edema. No clubbing or cyanosis. No cords, erythema, or tenderness NEUROLOGICAL: Cranial nerves II through XII grossly intact. Normal speech. SKIN: Warm, Dry, normal turgor, no rashes or lesions noted. - Medical Decision Making 04/10/19 20:20 83-year-old male presents with increasing difficulty breathing. Patient had a recent stress test and a recent echo showed ejection fraction of 45% Past medical history significant for A. fib, chronic kidney disease. Patient has a fistula and stage III/4 kidney disease, hypertension, hyperlipidemia He does have a left dialysis fistula with a bruit and thrill. At this time. He is not on dialysis and his fistula was placed back in the fall 2018. Patient has increased work of breathing and bilateral rales and will be admitted for CHF exacerbation
[2019-04-10] MEDS ORDERED: FUROSEMIDE 40 MG/4 ML INJECTABLE VIAL ONE ×2 (20:25→23:38)
[2019-04-10 20:47] LABS: INR 1.34 (0.83-1.09); PROTHROMBIN TIME (PATIENT) 15.9 SEC (9.7-13.0)
[2019-04-10 20:48] LABS: BILIRUBIN,TOTAL 0.7 mg/dL (0.2-1); CALCIUM 9.6 mg/dL (8.5-10.1); CREATININE 5.9 mg/dL (0.55-1.3); N-TERMINAL BNP 11605.9 pg/ml (5-450)
--- NOTE | 2019-04-10 21:54 | PN ---
Teaching Attending Note ATTENDING PHYSICIAN STATEMENT I saw and evaluated the patient. I reviewed the resident's note and discussed the case with the resident. I agree with the resident's findings and plan as documented. SUBJECTIVE: Seen and examined; please refer to resident note for further historical information. Briefly, this is a 83 y/o male with a PMH as documented. Had SOB this AM that was self-resolving; worsened at 4PM again so he called EMS. 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 Nephrology changed hydralazine to nifedipine in the past week. No change in diet, salt intake, etc. 40 IV lasix given in the ER with minimal improvement. 10 sys ROS done and negative aside from HPI PMH, PSH, FH, SH reviewed Home Medications Medication Instructions Recorded Atorvastatin Ca [Lipitor] 20 mg PO HS 08/29/18 Carvedilol [Coreg -] 12.5 mg PO BID 08/29/18 Cholecalciferol (Vitamin D3) 2,000 unit PO DAILY 08/29/18 [Vitamin D -] Ferric Citrate [Auryxia] 210 mg PO BID 08/29/18 Tamsulosin HCl [Flomax] 0.4 mg PO DAILY 08/29/18 Apixaban [Eliquis -] 2.5 mg PO BID #60 tablet 02/06/19 Calcium Acetate [Phoslo -] 667 mg PO TIDCM #90 capsule 02/06/19 Isosorbide Mononitrate [Imdur -] 60 mg PO DAILY #30 tab.sr.24h 02/06/19 Furosemide [Lasix] 80 mg PO DAILY 04/10/19 Glimepiride 500 mg PO DAILY 04/10/19 Nifedipine ER [Procardia Xl -] 60 mg PO BID 04/10/19 OBJECTIVE: VS, labs, imaging reviewed NAD, AAO, resting comfortably in bed. 4L via NC EKG reviewed Echo reviewed 01/2019; LVEF 45-50% with bi-atrial dilation, normal RV systolic function, moderate MR/TR, PASP 59 CXR reviewed; pulmonary vascular congestion with small b/l pleural effusions consistent with CHF Stress 2019 reviewed; exercise portion with nondiagnostic EKG 2/2 LVH with nuclear results showing normal perfusion and mild global hypokinesis 2/2 poor gating due to his afib with 45% EF ASSESSMENT AND PLAN: Patient presents to the ER with SOB 2/2 CHF exacerbation Systolic CHF Exacerbation -Higher in january; likely component of renal retention on top of this. Creatinine notably was lower last visit with a higher BNP. -On home lasix 80 QD and hydralazine and imdur; he is not on YESSICA/ARB but LVEF > 40% -Given 40 IV in the ER with no improvement; will increase to 80 IV BID and monitor strict is and os, QD weights, optimize K and Mg, and sodium/fluid restrict. -Consider CV consultation in AM. -Trigger for this is aneudy HTN Emergency -180s SBP on presentation; documented as now 140s. Will monitor on tele, ensure he gets his PM coreg. Can give PRN hydralazine and should discuss with nephro/CV about restarting. 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 Miles as an outpatient; significantly increased Cr today. Obtain FeUrea and consider nephro consult in AM -Monitor is he is making urine; given pulmonary vascular congestion he does need diuresis and may require quite a large dose (40 BID last time with 80 PO QD at home) -Strict Is and Os, QD BMP, monitor elytes. Offer condom cath for close followup of outputs.- -Etiology likely multifactoral; consider HTn, etc. causing but also considering hypoperfusion 2/2 cardiac dysfunction -Saw nephrology yesterday and was told he didn't need to start HD. Hx Afib with RVR (on DOAC) -Continue dose-adjusted eliquis, BID coreg 12.5. Consider increasing dose as high-normal HR and BP will be able to tolerate this. DM -SSI when inpatient BPH -Verify and continue home tamsulosin Elevated PASP -No [facility] records; can discuss with CV.
--- NOTE | 2019-04-10 23:25 | HP ---
CHIEF COMPLAINT: shortness of breath PCP: Dr. Ulloa HISTORY OF PRESENT ILLNESS: Patient is a 83 y/o male with a history of CKD, fistula placed in 2018 but HD not started, HTN, DM, CHF, afib, and HLD who presents today for shortness of breath. Patient woke up this morning with shortness of breath. His symptoms resolved but then returned around 4 pm when he came to the hospital. Within the last week he saw his chronic manager who changed his hydralazine to nifedipine. That is the only change in his life. He lives at home and is able to do his own daily living activities. He denies productive cough, fever, chills, nausea, vomiting, chest pain, or headache. no recent travel, no smoking hx. Patient was admitted to the hospital 3 months ago where he had Afib with RVR. Stress test showed normal myocardial perfusion with mild hypokinesis. Echohad a EF of 45% and R systolic pressure of 59. Patient has no other complaints. ER course was notable for: (1)Lasix 40 (2) duonebs (3) 4L O2 Recent Travel: denies PAST MEDICAL HISTORY: CKD, fistula placed in 2018 but HD not started, HTN, DM, CHF, afib, and HLD PAST SURGICAL HISTORY: 2018 left fistula placed Social History: Smoking: denies Alcohol: denies Drugs: Family History: Allergies No Known Allergies Allergy (Verified 02/03/19 18:11) HOME MEDICATIONS: Home Medications Medication Instructions Recorded Atorvastatin Ca [Lipitor] 20 mg PO HS 08/29/18 Carvedilol [Coreg -] 12.5 mg PO BID 08/29/18 Cholecalciferol (Vitamin D3) 2,000 unit PO DAILY 08/29/18 [Vitamin D -] Ferric Citrate [Auryxia] 210 mg PO BID 08/29/18 Tamsulosin HCl [Flomax] 0.4 mg PO DAILY 08/29/18 Apixaban [Eliquis -] 2.5 mg PO BID #60 tablet 02/06/19 Calcium Acetate [Phoslo -] 667 mg PO TIDCM #90 capsule 02/06/19 Furosemide [Lasix] 80 mg PO DAILY 04/10/19 Glimepiride 500 mg PO DAILY 04/10/19 Isosorbide Mononitrate [Imdur -] 60 mg PO BID 04/10/19 Nifedipine ER [Procardia Xl -] 60 mg PO BID 04/10/19 REVIEW OF SYSTEMS positive: shortness of breath Denies: cough, sputum production, fever, chills, nausea, vomiting, diarrhea, dysuria, headache, chest pain PHYSICAL EXAMINATION Vital Signs - 24 hr 04/10/19 04/10/19 04/10/19 18:26 18:33 19:15 Temperature 97.2 F L 98.3 F Pulse Rate 71 Pulse Rate [ 103 H Right Radial] Respiratory 16 Rate Blood Pressure 186/69 H Blood Pressure 140/79 [Right Arm] O2 Sat by Pulse 97 100 95 Oximetry (%) GENERAL: Awake, alert, and fully oriented, in no acute distress. HEAD: Normal with no signs of trauma. EYES: Pupils equal, round and reactive to light, extraocular movements intact, EARS, NOSE, THROAT: Moist mucous membranes. LUNGS: posterior wheezing, mild crackles heard at left lower base, more wheezing at right lower base, no acessory muscle use HEART: Regular rate and rhythm, anterior wheezes likely 2/2 to cardiac ABDOMEN: Soft, nontender, not distended, normoactive bowel sounds, no guarding, no rebound, no masses. MUSCULOSKELETAL: No CVA tenderness. LOWER EXTREMITIES: 2+ pulses, warm, well-perfused. No calf tenderness. No peripheral edema. NEUROLOGICAL: Cranial nerves II-XII intact. Normal speech. SKIN: Warm, dry, normal turgor, no rashes or lesions noted, normal capillary refill. CBCD WBC 9.7 K/mm3 (4.0-10.0) 04/10/19 19:40 RBC 4.05 M/mm3 (4.00-5.60) 04/10/19 19:40 Hgb 11.5 GM/dL (11.7-16.9) L 04/10/19 19:40 Hct 35.8 % (35.4-49) D 04/10/19 19:40 MCV 88.6 fl (80-96) 04/10/19 19:40 MCHC 32.2 g/dl (32.0-35.9) 04/10/19 19:40 RDW 15.4 % (11.9-15.9) 04/10/19 19:40 Plt Count 282 K/MM3 (134-434) 04/10/19 19:40 MPV 8.2 fl (7.5-11.1) 04/10/19 19:40 CMP Sodium 139 mmol/L (136-145) 04/10/19 19:40 Potassium 5.0 mmol/L (3.5-5.1) 04/10/19 19:40 Chloride 106 mmol/L (98-107) 04/10/19 19:40 Carbon Dioxide 23 mmol/L (21-32) 04/10/19 19:40 Anion Gap 10 MMOL/L (8-16) 04/10/19 19:40 BUN 102 mg/dL (7-18) H 04/10/19 19:40 Creatinine 5.9 mg/dL (0.55-1.3) H 04/10/19 19:40 Calcium 9.6 mg/dL (8.5-10.1) 04/10/19 19:40 Total Bilirubin 0.7 mg/dL (0.2-1) 04/10/19 19:40 AST 3 U/L (15-37) L 04/10/19 19:40 ALT 12 U/L (13-61) L 04/10/19 19:40 Alkaline Phosphatase 73 U/L (45-117) 04/10/19 19:40 Total Protein 7.0 g/dl (6.4-8.2) 04/10/19 19:40 Albumin 4.0 g/dl (3.4-5.0) 04/10/19 19:40 ASSESSMENT/PLAN: Patient is a 83 y/o male with a history of CKD, fistula placed in 2018 but HD not started, HTN, DM, CHF, afib, and HLD who presents today for shortness of breath 2/2 to CHF exacerbation. #CHF exacerbation -2/2 to new nifedipine use, vs HTN urgency, vs worseining of kidney disease - 40 IV lasix given in ED, another 40 ordered - strict I's and O's, weight 600 - low sodium diet - 02/05 Echo: EF 45%, mild global hypokinesis, mild LVD dsfxn, R atrium mildly dilated, R systolic pressure 59 - f/u ABG for any CO2 retaining - f/u Mg,a nd optomize - conitnue lasix 80 IV BID - can consult cardio, ? need of new echo #elevated Pulmonary artery pressure - causing worsening CHF and increase right heart strain - would consider restarting hydralazine - can give hydralazine pushes for HTN - continue isosorbide mononitrate 60 po BID #HTN Urgency - will continue Carvedilol 12.5 mg BID - resolved #afib -EKG RRR - continue Eliquis 2.5 mg BID #CKD - increased Cr to 5 - may be increased in setting of chf, continue to monitor - f/u Fe Urea #DM - BGM Achs - SS - hol po med #BPH - continue tamsulonsin 0.4 mg daily FEN - low sodium diet - monitor electrolytes Dispo: monitor on tele Visit type - Emergency Visit Emergency Visit: Yes ED Registration Date: 04/10/19 Care time: The patient presented to the Emergency Department on the above date and was hospitalized for further evaluation of their emergent condition. - New Patient This patient is new to me today: Yes Date on this admission: 04/11/19 - Critical Care Critical Care patient: No
[2019-04-10] MEDS ORDERED: CARVEDILOL 12.5 MG TABLET (FP) ONE (23:38)
[2019-04-10] MEDS: CARVEDILOL 12.5 MG TABLET (FP) PO SCH (23:42)
[2019-04-11 01:12] LABS: ALLENS TEST POSITIVE
[2019-04-11 01:21] LABS: ARTERIAL BLOOD GAS PCO2 46.5 mmHg (35-45); ARTERIAL BLOOD GAS PO2 82.3 mmHg (80-105); ARTERIAL BLOOD GAS pH 7.32 (7.35-7.45)
[2019-04-11 01:22] LABS: ARTERIAL BLD GAS O2 SATURATION 94.8 % (95-98); ARTERIAL BLOOD GAS BASE EXCESS -2.4 meq/l (-2-2)
[2019-04-11] MEDS ORDERED: FUROSEMIDE 40 MG/4 ML INJECTABLE VIAL ONE ×2 (06:07→15:56)
[2019-04-11] MEDS: FUROSEMIDE 40 MG/4 ML INJECTABLE VIAL IVPUSH SCH ×2 (06:12→16:21)
[2019-04-11 06:41] LABS: BASO % 0.6 % (0-2.0); HEMATOCRIT 33.5 % (35.4-49); HEMOGLOBIN 11.1 GM/dL (11.7-16.9); LYMPH % 6.8 % (8-40); MCH 28.9 pg (25.7-33.7); MEAN CELL VOLUME 87.4 fl (80-96); MEAN PLT VOLUME 7.9 fl (7.5-11.1); MONO % 9.1 % (3.8-10.2); NEUT % 82.5 % (42.8-82.8); PLATELET COUNT 282 K/MM3 (134-434); RBC 3.84 M/mm3 (4.00-5.60); WHITE BLOOD COUNT 8.3 K/mm3 (4.0-10.0)
[2019-04-11] MEDS: INSULIN SLIDING SCALE (NOVOLOG) 1 VIAL SQ SCH ×4 (07:09→21:49)
[2019-04-11 07:17] LABS: ALBUMIN 3.6 g/dl (3.4-5.0); BILIRUBIN,TOTAL 0.7 mg/dL (0.2-1); CALCIUM 9.2 mg/dL (8.5-10.1); CREATININE 5.7 mg/dL (0.55-1.3); MAGNESIUM 2.9 mg/dL (1.8-2.4); PHOSPHOROUS 4.5 mg/dL (2.5-4.9); POTASSIUM 4.7 mmol/L (3.5-5.1); TOT PROT 6.6 g/dl (6.4-8.2)
[2019-04-11] MEDS ORDERED: TAMSULOSIN HCL 0.4 MG CAP PO SCH (10:00)
[2019-04-11] MEDS ORDERED: CHOLECALCIFEROL (VIT D3) 400 UNIT (10 MCG) TABLET PO SCH (10:00)
[2019-04-11] MEDS ORDERED: PATIENT'S OWN MEDICATION (NON-FORMULARY) (Ferric Citrate [Auryxia] 210 MG) PO SCH (10:00)
[2019-04-11] MEDS: CALCIUM ACETATE 667 MG CAPSULE (FP) PO SCH ×3 (10:21→18:01)
[2019-04-11] MEDS: CHOLECALCIFEROL (VIT D3) 1,000 UNIT (25 MCG) TABLET PO SCH (10:21)
[2019-04-11] MEDS: APIXABAN 2.5 MG TABLET PO SCH ×3 (10:21→21:47)
[2019-04-11] MEDS: ISOSORBIDE MONONITRATE 60 MG TAB.SR.24H (FP) PO SCH ×3 (10:21→21:47)
[2019-04-11] MEDS: CARVEDILOL 12.5 MG TABLET (FP) PO SCH ×2 (10:21→21:47)
--- NOTE | 2019-04-11 12:58 | CONSULT ---
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 Pt was on Lasix at home once daily. Denies any LE swelling. Making urine w/o difficulty. No overt uremic symptoms. No chest pain, fever, chills, N/V/D, Abd pain. Denies any NSAID use. Denies any recent contrast exposure. Pt has AVF, is agreeable to start dialysis if it were needed. PMHx: as above Allergies: NKDA Family Hx: NC Social Hx: No T/A/D ROS: as per HPI, all other pertinent ros negative Home Medications Medication Instructions Recorded Atorvastatin Ca [Lipitor] 20 mg PO HS 08/29/18 Carvedilol [Coreg -] 12.5 mg PO BID 08/29/18 Cholecalciferol (Vitamin D3) 2,000 unit PO DAILY 08/29/18 [Vitamin D -] Ferric Citrate [Auryxia] 210 mg PO BID 08/29/18 Tamsulosin HCl [Flomax] 0.4 mg PO DAILY 08/29/18 Apixaban [Eliquis -] 2.5 mg PO BID #60 tablet 02/06/19 Calcium Acetate [Phoslo -] 667 mg PO TIDCM #90 capsule 02/06/19 Furosemide [Lasix] 80 mg PO DAILY 04/10/19 Glimepiride 500 mg PO DAILY 04/10/19 Isosorbide Mononitrate [Imdur -] 60 mg PO BID 04/10/19 Nifedipine ER [Procardia Xl -] 60 mg PO BID 04/10/19 Vital Signs Temperature 97.3 F L 04/11/19 06:09 Pulse Rate 69 04/11/19 10:20 Respiratory Rate 20 04/11/19 10:20 Blood Pressure 170/63 04/11/19 10:20 O2 Sat by Pulse Oximetry (%) 97 04/11/19 07:37 Intake & Output 04/08/19 04/09/19 04/10/19 04/11/19 23:59 23:59 23:59 23:59 Output Total 500 Balance -500 Weight 81.647 kg NAD on NC O2 neck supple, no JVD irregular, no M/R Dec BS, rales at lung bases soft NT/ND, no rebound or guarding no bladder distension no LE edema, clubbing or cyanosis CBC, BMP 04/11/19 06:00 04/11/19 06:00 Current Medications Apixaban (Eliquis -) 2.5 mg PO BID [facility] Last Admin: 04/11/19 10:21 Dose: 2.5 mg Atorvastatin Calcium (Lipitor -) 20 mg PO HS [facility] Calcium Acetate (Phoslo -) 667 mg PO TIDCM [facility] Last Admin: 04/11/19 10:21 Dose: 667 mg Carvedilol (Coreg -) 12.5 mg PO BID [facility] Last Admin: 04/11/19 10:21 Dose: 12.5 mg Cholecalciferol (Vitamin D3 -) 2,000 unit PO DAILY [facility] Last Admin: 04/11/19 10:21 Dose: 2,000 unit Furosemide (Lasix Injection -) 80 mg IVPUSH BID@0600,1400 [facility] Last Admin: 04/11/19 06:12 Dose: 80 mg Insulin Aspart (Novolog Vial Sliding Scale -) 1 vial SQ [facility]; Protocol Last Admin: 04/11/19 07:09 Dose: Not Given Isosorbide Mononitrate (Imdur -) 60 mg PO BID [facility] Last Admin: 04/11/19 10:21 Dose: 60 mg Non-Formulary Medication (Ferric Citrate [Auryxia]) 210 mg PO BID [facility] Tamsulosin HCl (Flomax -) 0.4 mg PO DAILY@0830 [facility] 83 year old gentleman with 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 Thank you Shola Guaman DO
--- NOTE | 2019-04-11 13:05 | EKG ---
Test Reason : Blood Pressure : / mmHG Vent. Rate : 074 BPM Atrial Rate : 074 BPM P-R Int : 236 ms QRS Dur : 112 ms QT Int : 388 ms P-R-T Axes : 076 087 050 degrees QTc Int : 430 ms SINUS RHYTHM WITH 1ST DEGREE A-V BLOCK LEFT VENTRICULAR HYPERTROPHY WITH REPOLARIZATION ABNORMALITY ABNORMAL ECG WHEN COMPARED WITH ECG OF 03-FEB-2019 21:53, SINUS RHYTHM HAS REPLACED ATRIAL FIBRILLATION QUESTIONABLE CHANGE IN QRS AXIS Confirmed by JOVANI WEINBERG MD ([id number]) on 04/11/2019 1:04:52 PM Referred By: Confirmed By:JOVANI WEINBERG MD
--- NOTE | 2019-04-11 13:19 | PN ---
Physical Exam: SUBJECTIVE: Patient seen and examined at bedside. Feels better currently compared to prior to admission. Reports breathing is improved. No chest pain, fevers, chills. OBJECTIVE: Vital Signs Temperature 97.3 F L 04/11/19 06:09 Pulse Rate 67 04/11/19 12:57 Respiratory Rate 20 04/11/19 12:57 Blood Pressure 176/61 H 04/11/19 12:57 O2 Sat by Pulse Oximetry (%) 97 04/11/19 12:57 GENERAL: The patient is awake, alert, and fully oriented, in no acute distress. EYES: extraocular movements intact, sclera anicteric, conjunctiva clear. LUNGS: b/l crackles HEART: Regular rate and rhythm, S1, S2 ABDOMEN: Soft, nontender, nondistended, normoactive bowel sounds EXTREMITIES: warm, well-perfused, no edema. NEUROLOGICAL: Cranial nerves II through XII grossly intact. Normal speech PSYCH: Normal mood, normal affect. SKIN: Warm, dry Laboratory Results - last 24 hr 04/10/19 04/10/19 04/10/19 19:40 19:40 19:40 WBC 9.7 RBC 4.05 Hgb 11.5 L Hct 35.8 D MCV 88.6 MCH 28.5 MCHC 32.2 RDW 15.4 Plt Count 282 MPV 8.2 Absolute Neuts (auto) 8.1 H Neutrophils % 83.2 H D Lymphocytes % 8.0 D Monocytes % 7.2 Eosinophils % 1.3 Basophils % 0.3 Nucleated RBC % 0 PT with INR 15.90 H INR 1.34 H Anticoagulation Therapy Puncture Site ABG pH ABG pCO2 at Pt Temp ABG pO2 at Pt Temp ABG HCO3 ABG O2 Sat (Measured) ABG O2 Content ABG Base Excess Stan Test Carboxyhemoglobin Methemoglobin O2 Delivery Device Oxygen Flow Rate Vent Mode Vent Rate Mechanical Rate Pressure Support Vent Sodium 139 Potassium 5.0 Chloride 106 Carbon Dioxide 23 Anion Gap 10 BUN 102 H Creatinine 5.9 H Est GFR (CKD-EPI)AfAm 9.26 Est GFR (CKD-EPI)NonAf 7.99 POC Glucometer Random Glucose 161 H Calcium 9.6 Phosphorus Magnesium Total Bilirubin 0.7 AST 3 L ALT 12 L Alkaline Phosphatase 73 Creatine Kinase Troponin I B-Natriuretic Peptide 44667.9 H Total Protein 7.0 Albumin 4.0 Ur Random Urea Nitrogn 04/10/19 04/11/19 04/11/19 19:40 01:00 01:15 WBC RBC Hgb Hct MCV MCH MCHC RDW Plt Count MPV Absolute Neuts (auto) Neutrophils % Lymphocytes % Monocytes % Eosinophils % Basophils % Nucleated RBC % PT with INR INR Anticoagulation Therapy No Result Required. Puncture Site Right radial ABG pH 7.32 L ABG pCO2 at Pt Temp 46.5 H ABG pO2 at Pt Temp 82.3 ABG HCO3 23.3 ABG O2 Sat (Measured) 94.8 L ABG O2 Content 15.1 ABG Base Excess -2.4 L Stan Test Positive Carboxyhemoglobin 1.0 Methemoglobin 0.8 O2 Delivery Device N/c Oxygen Flow Rate 4l Vent Mode No Result Required. Vent Rate No Result Required. Mechanical Rate No Result Required. Pressure Support Vent No Result Required. Sodium Potassium Chloride Carbon Dioxide Anion Gap BUN Creatinine Est GFR (CKD-EPI)AfAm Est GFR (CKD-EPI)NonAf POC Glucometer Random Glucose Calcium Phosphorus Magnesium 2.9 H Total Bilirubin AST ALT Alkaline Phosphatase Creatine Kinase 38 Troponin I 0.02 B-Natriuretic Peptide Total Protein Albumin Ur Random Urea Nitrogn 04/11/19 04/11/19 04/11/19 01:15 06:00 06:00 WBC 8.3 RBC 3.84 L Hgb 11.1 L Hct 33.5 L MCV 87.4 MCH 28.9 MCHC 33.0 RDW 15.0 Plt Count 282 MPV 7.9 Absolute Neuts (auto) 6.9 Neutrophils % 82.5 Lymphocytes % 6.8 L Monocytes % 9.1 Eosinophils % 1.0 Basophils % 0.6 Nucleated RBC % 0 PT with INR INR Anticoagulation Therapy Puncture Site ABG pH ABG pCO2 at Pt Temp ABG pO2 at Pt Temp ABG HCO3 ABG O2 Sat (Measured) ABG O2 Content ABG Base Excess Stan Test Carboxyhemoglobin Methemoglobin O2 Delivery Device Oxygen Flow Rate Vent Mode Vent Rate Mechanical Rate Pressure Support Vent Sodium 141 Potassium 4.7 Chloride 108 H Carbon Dioxide 23 Anion Gap 10 BUN 102 H Creatinine 5.7 H Est GFR (CKD-EPI)AfAm 9.66 Est GFR (CKD-EPI)NonAf 8.33 POC Glucometer Random Glucose 129 H Calcium 9.2 Phosphorus 4.5 Magnesium 2.9 H Total Bilirubin 0.7 AST 3 L ALT 11 L Alkaline Phosphatase 65 Creatine Kinase Troponin I B-Natriuretic Peptide Total Protein 6.6 Albumin 3.6 Ur Random Urea Nitrogn 452 04/11/19 04/11/19 07:08 12:42 WBC RBC Hgb Hct MCV MCH MCHC RDW Plt Count MPV Absolute Neuts (auto) Neutrophils % Lymphocytes % Monocytes % Eosinophils % Basophils % Nucleated RBC % PT with INR INR Anticoagulation Therapy Puncture Site ABG pH ABG pCO2 at Pt Temp ABG pO2 at Pt Temp ABG HCO3 ABG O2 Sat (Measured) ABG O2 Content ABG Base Excess Stan Test Carboxyhemoglobin Methemoglobin O2 Delivery Device Oxygen Flow Rate Vent Mode Vent Rate Mechanical Rate Pressure Support Vent Sodium Potassium Chloride Carbon Dioxide Anion Gap BUN Creatinine Est GFR (CKD-EPI)AfAm Est GFR (CKD-EPI)NonAf POC Glucometer 123 122 Random Glucose Calcium Phosphorus Magnesium Total Bilirubin AST ALT Alkaline Phosphatase Creatine Kinase Troponin I B-Natriuretic Peptide Total Protein Albumin Ur Random Urea Nitrogn Active Medications Generic Name Dose Route Start Last Admin Trade Name Freq PRN Reason Stop Dose Admin Apixaban 2.5 mg 04/10/19 23:00 04/11/19 10:21 Eliquis - PO 2.5 mg BID ELANA Administration Atorvastatin Calcium 20 mg 04/11/19 22:00 Lipitor - PO HS [facility] Calcium Acetate 667 mg 04/11/19 08:00 04/11/19 10:21 Phoslo - PO 667 mg TIDCM ELANA Administration Carvedilol 12.5 mg 04/10/19 23:00 04/11/19 10:21 Coreg - PO 12.5 mg BID ELANA Administration Cholecalciferol 2,000 unit 04/11/19 10:00 04/11/19 10:21 Vitamin D3 - PO 2,000 unit DAILY ELANA Administration Furosemide 80 mg 04/11/19 06:00 04/11/19 06:12 Lasix Injection - IVPUSH 80 mg BID@0600,1400 [facility] Administration Insulin Aspart 1 vial 04/11/19 07:00 04/11/19 12:42 Novolog Vial Sliding Scale - SQ Not Given ACHS [facility] Protocol Isosorbide Mononitrate 60 mg 04/10/19 23:00 04/11/19 10:21 Imdur - PO 60 mg BID ELANA Administration Non-Formulary Medication 210 mg 04/11/19 10:00 Ferric Citrate [Auryxia] PO BID [facility] Tamsulosin HCl 0.4 mg 04/11/19 10:00 Flomax - PO DAILY@0830 [facility] ASSESSMENT/PLAN: 83 y/o M w/PMH of CKD, AV fistula placed last year but not started on HD yet, HTN, DM, CHF, afib, HLD admitted for CHF exacerbation. -CHF exacerbation -c/w IV lasix 80mg bid -low sodium diet -Nephro following - to assess need for HD -improving -HTN -c/w carvedilol, imdur -nifedipine ER 60 mg bid restarted from home meds -Afib -c/w eliquis 2.5 mg bid -CKD -Nephro following -Vascular surgery consulted to evaluate access -dose meds for CrCl <10 -DM -ISS, BGMs ACHS -BPH -c/w tamsulosin 0.4 mg po qd -FEN -no fluids -monitor electrolytes -low sodium diet -Dispo: monitor on tele Visit type - Emergency Visit Emergency Visit: Yes ED Registration Date: 04/10/19 Care time: The patient presented to the Emergency Department on the above date and was hospitalized for further evaluation of their emergent condition. - New Patient This patient is new to me today: Yes Date on this admission: 04/11/19 - Critical Care Critical Care patient: No
--- NOTE | 2019-04-11 14:55 | PN ---
Progress Note (short form) - Note Progress Note: Vascular Surgery: The patient came to the ER for SOB. He states that he came to the ER for SOB. Surgery was asked to evaluate his fistula for possible use. The patient had a Left arm AVF in 09/07. The patient hasn't started hemodialysis. He has some numbness to his left hand(intermittent) at night. No swelling to his lower extremitites. Vital Signs Period Temp Pulse Resp BP Sys/Patiño Pulse Ox Last 24 Hr 97.2 F-98.3 F 64-103 16-24 140-186/61-79 95-100 GEN: A&0x3, NAD Lungs: b/l rales at the bases Left arm: +2 radial pulse, good cap refill and hand warm. +palpable thill extending from the AC to mid upper arm with dilated/palpable vein under the skin. Duplex study in November 2017 and follow up exam from Dr. Contreras stated that the fistula was ready for use. A/P: 83 yo male s/p Left AVF 09/07 now with SOB Awaiting renal consult Spoke with Dr. Contreras and they may use Left AVF for HD if needed. He did have a repeat navix study(rountine) completed this week. The patient was schedule to have a follow up appointment with Dr Contreras this tuesday.
[2019-04-11] MEDS ORDERED: hydrALAZINE HCL 20 MG/ML VIAL IVPUSH PRN (17:29)
--- NOTE | 2019-04-11 17:38 | PN ---
Teaching Attending Note Name of Resident: José Miguel Contreras ATTENDING PHYSICIAN STATEMENT I saw and evaluated the patient. I reviewed the resident's note and discussed the case with the resident. I agree with the resident's findings and plan as documented with exceptions below. SUBJECTIVE: Patient seen and examined, breathing improved, no new complaints. Reports sudden onset of dyspnea yesterday prompting him to come to the ED. OBJECTIVE: Vital Signs Period Temp Pulse Resp BP Sys/Patiño Pulse Ox Last 24 Hr 97.2 F-98.3 F 64-103 16-24 140-186/61-79 95-100 Intake & Output 04/08/19 04/09/19 04/10/19 04/11/19 23:59 23:59 23:59 23:59 Output Total 700 Balance -700 Weight 180 lb General: sitting in stretcher in no acute distress Chest: decreased breath sounds at bases, few rales above the same Abdomen:soft, NT, ND Extremities: 1+ pedal pitting edema Home Medications Medication Instructions Recorded Atorvastatin Ca [Lipitor] 20 mg PO HS 08/29/18 Carvedilol [Coreg -] 12.5 mg PO BID 08/29/18 Cholecalciferol (Vitamin D3) 2,000 unit PO DAILY 08/29/18 [Vitamin D -] Ferric Citrate [Auryxia] 210 mg PO BID 08/29/18 Tamsulosin HCl [Flomax] 0.4 mg PO DAILY 08/29/18 Apixaban [Eliquis -] 2.5 mg PO BID #60 tablet 02/06/19 Calcium Acetate [Phoslo -] 667 mg PO TIDCM #90 capsule 02/06/19 Furosemide [Lasix] 80 mg PO DAILY 04/10/19 Glimepiride 500 mg PO DAILY 04/10/19 Isosorbide Mononitrate [Imdur -] 60 mg PO BID 04/10/19 Nifedipine ER [Procardia Xl -] 60 mg PO BID 04/10/19 Active Medications Apixaban (Eliquis -) 2.5 mg PO BID REPLACED BY [facility] Last Admin: 04/11/19 10:21 Dose: 2.5 mg Atorvastatin Calcium (Lipitor -) 20 mg PO HS REPLACED BY [facility] Calcium Acetate (Phoslo -) 667 mg PO TIDCM REPLACED BY [facility] Last Admin: 04/11/19 12:25 Dose: 667 mg Carvedilol (Coreg -) 12.5 mg PO BID REPLACED BY [facility] Last Admin: 04/11/19 10:21 Dose: 12.5 mg Cholecalciferol (Vitamin D3 -) 2,000 unit PO DAILY REPLACED BY [facility] Last Admin: 04/11/19 10:21 Dose: 2,000 unit Furosemide (Lasix Injection -) 80 mg IVPUSH BID@0600,1400 REPLACED BY [facility] Last Admin: 04/11/19 16:21 Dose: 80 mg Hydralazine HCl (Apresoline Injection -) 10 mg IVPUSH Q6H PRN PRN Reason: HYPERTENSION Insulin Aspart (Novolog Vial Sliding Scale -) 1 vial SQ ACHS REPLACED BY [facility]; Protocol Last Admin: 04/11/19 12:42 Dose: Not Given Isosorbide Mononitrate (Imdur -) 60 mg PO BID REPLACED BY [facility] Last Admin: 04/11/19 10:21 Dose: 60 mg Nifedipine (Procardia Xl -) 60 mg PO BID REPLACED BY [facility] Non-Formulary Medication (Ferric Citrate [Auryxia]) 210 mg PO BID REPLACED BY [facility] Tamsulosin HCl (Flomax -) 0.4 mg PO DAILY@0830 REPLACED BY [facility] Laboratory Results - last 24 hr 04/10/19 04/10/19 04/10/19 19:40 19:40 19:40 WBC 9.7 RBC 4.05 Hgb 11.5 L Hct 35.8 D MCV 88.6 MCH 28.5 MCHC 32.2 RDW 15.4 Plt Count 282 MPV 8.2 Absolute Neuts (auto) 8.1 H Neutrophils % 83.2 H D Lymphocytes % 8.0 D Monocytes % 7.2 Eosinophils % 1.3 Basophils % 0.3 Nucleated RBC % 0 PT with INR 15.90 H INR 1.34 H Anticoagulation Therapy Puncture Site ABG pH ABG pCO2 at Pt Temp ABG pO2 at Pt Temp ABG HCO3 ABG O2 Sat (Measured) ABG O2 Content ABG Base Excess Stan Test Carboxyhemoglobin Methemoglobin O2 Delivery Device Oxygen Flow Rate Vent Mode Vent Rate Mechanical Rate Pressure Support Vent Sodium 139 Potassium 5.0 Chloride 106 Carbon Dioxide 23 Anion Gap 10 BUN 102 H Creatinine 5.9 H Est GFR (CKD-EPI)AfAm 9.26 Est GFR (CKD-EPI)NonAf 7.99 POC Glucometer Random Glucose 161 H Calcium 9.6 Phosphorus Magnesium Total Bilirubin 0.7 AST 3 L ALT 12 L Alkaline Phosphatase 73 Creatine Kinase Troponin I B-Natriuretic Peptide 36871.9 H Total Protein 7.0 Albumin 4.0 Ur Random Urea Nitrogn 04/10/19 04/11/19 04/11/19 19:40 01:00 01:15 WBC RBC Hgb Hct MCV MCH MCHC RDW Plt Count MPV Absolute Neuts (auto) Neutrophils % Lymphocytes % Monocytes % Eosinophils % Basophils % Nucleated RBC % PT with INR INR Anticoagulation Therapy No Result Required. Puncture Site Right radial ABG pH 7.32 L ABG pCO2 at Pt Temp 46.5 H ABG pO2 at Pt Temp 82.3 ABG HCO3 23.3 ABG O2 Sat (Measured) 94.8 L ABG O2 Content 15.1 ABG Base Excess -2.4 L Stan Test Positive Carboxyhemoglobin 1.0 Methemoglobin 0.8 O2 Delivery Device N/c Oxygen Flow Rate 4l Vent Mode No Result Required. Vent Rate No Result Required. Mechanical Rate No Result Required. Pressure Support Vent No Result Required. Sodium Potassium Chloride Carbon Dioxide Anion Gap BUN Creatinine Est GFR (CKD-EPI)AfAm Est GFR (CKD-EPI)NonAf POC Glucometer Random Glucose Calcium Phosphorus Magnesium 2.9 H Total Bilirubin AST ALT Alkaline Phosphatase Creatine Kinase 38 Troponin I 0.02 B-Natriuretic Peptide Total Protein Albumin Ur Random Urea Nitrogn 04/11/19 04/11/19 04/11/19 01:15 06:00 06:00 WBC 8.3 RBC 3.84 L Hgb 11.1 L Hct 33.5 L MCV 87.4 MCH 28.9 MCHC 33.0 RDW 15.0 Plt Count 282 MPV 7.9 Absolute Neuts (auto) 6.9 Neutrophils % 82.5 Lymphocytes % 6.8 L Monocytes % 9.1 Eosinophils % 1.0 Basophils % 0.6 Nucleated RBC % 0 PT with INR INR Anticoagulation Therapy Puncture Site ABG pH ABG pCO2 at Pt Temp ABG pO2 at Pt Temp ABG HCO3 ABG O2 Sat (Measured) ABG O2 Content ABG Base Excess Stan Test Carboxyhemoglobin Methemoglobin O2 Delivery Device Oxygen Flow Rate Vent Mode Vent Rate Mechanical Rate Pressure Support Vent Sodium 141 Potassium 4.7 Chloride 108 H Carbon Dioxide 23 Anion Gap 10 BUN 102 H Creatinine 5.7 H Est GFR (CKD-EPI)AfAm 9.66 Est GFR (CKD-EPI)NonAf 8.33 POC Glucometer Random Glucose 129 H Calcium 9.2 Phosphorus 4.5 Magnesium 2.9 H Total Bilirubin 0.7 AST 3 L ALT 11 L Alkaline Phosphatase 65 Creatine Kinase Troponin I B-Natriuretic Peptide Total Protein 6.6 Albumin 3.6 Ur Random Urea Nitrogn 452 04/11/19 04/11/19 07:08 12:42 WBC RBC Hgb Hct MCV MCH MCHC RDW Plt Count MPV Absolute Neuts (auto) Neutrophils % Lymphocytes % Monocytes % Eosinophils % Basophils % Nucleated RBC % PT with INR INR Anticoagulation Therapy Puncture Site ABG pH ABG pCO2 at Pt Temp ABG pO2 at Pt Temp ABG HCO3 ABG O2 Sat (Measured) ABG O2 Content ABG Base Excess Stan Test Carboxyhemoglobin Methemoglobin O2 Delivery Device Oxygen Flow Rate Vent Mode Vent Rate Mechanical Rate Pressure Support Vent Sodium Potassium Chloride Carbon Dioxide Anion Gap BUN Creatinine Est GFR (CKD-EPI)AfAm Est GFR (CKD-EPI)NonAf POC Glucometer 123 122 Random Glucose Calcium Phosphorus Magnesium Total Bilirubin AST ALT Alkaline Phosphatase Creatine Kinase Troponin I B-Natriuretic Peptide Total Protein Albumin Ur Random Urea Nitrogn CXR results and image reviewed ASSESSMENT AND PLAN: 83 yom with PMHx of CKD stage V, s/p left arm AV fistula 07/2018, no on HD yet, HTN, Systolic/diastolic dysfunction, HLD, NIDDM, Afib on eliquis admitted with dyspnea -Acute on chronic systolic/diastolic heart failure exacerbation -CKD stage V s/p left arm AV fistula 07/2018, not on HD yet -Uncontrolled HTN -Afib on eliquis -NIDDM -HLD Plan: Lasix 80 mg IV BID, monitor renal function and volume status closely. Nephrology input appreciated. Vascular surgery input noted. Anticipate HD via fistula in 24-48 hours. Will follow up with renal. H/o uncontrolled BP. Continue Imdur/coreg/nifedipine. Hydralazine prn for SBP >170 ISS/statin/flomax DVTPPX on eliquis Dispo pending clinical improvement. Plan discussed with patient in detail, all questions answered Care co-ordinated with nephrology, vascular surgery.
[2019-04-11 20:59] VITALS: BMI 26.2
[2019-04-11] MEDS: NIFEdipine E.R 60 MG TABLET (UD) PO SCH (21:48)
[2019-04-11] MEDS: ATORVASTATIN CA 20 MG TABLET (FP) PO SCH (21:48)
[2019-04-12] MEDS: INSULIN SLIDING SCALE (NOVOLOG) 1 VIAL SQ SCH ×4 (06:06→22:10)
[2019-04-12] MEDS: FUROSEMIDE 40 MG/4 ML INJECTABLE VIAL IVPUSH SCH ×2 (06:07→14:06)
[2019-04-12 07:14] LABS: BASO % 0.7 % (0-2.0); HEMATOCRIT 32.5 % (35.4-49); HEMOGLOBIN 10.7 GM/dL (11.7-16.9); LYMPH % 6.8 % (8-40); MCH 28.6 pg (25.7-33.7); MCHC 32.9 g/dl (32.0-35.9); MEAN CELL VOLUME 86.9 fl (80-96); MEAN PLT VOLUME 8.1 fl (7.5-11.1); MONO % 11.3 % (3.8-10.2); NEUT % 80.2 % (42.8-82.8); PLATELET COUNT 318 K/MM3 (134-434); RBC 3.75 M/mm3 (4.00-5.60); RDW 15.2 % (11.9-15.9)
[2019-04-12 07:32] LABS: ALBUMIN 3.7 g/dl (3.4-5.0); BILIRUBIN,TOTAL 0.9 mg/dL (0.2-1); CALCIUM 9.9 mg/dL (8.5-10.1); CREATININE 5.4 mg/dL (0.55-1.3); POTASSIUM 4.6 mmol/L (3.5-5.1); TOT PROT 6.6 g/dl (6.4-8.2)
[2019-04-12] MEDS: CALCIUM ACETATE 667 MG CAPSULE (FP) PO SCH ×3 (09:16→16:50)
[2019-04-12] MEDS: NIFEdipine E.R 60 MG TABLET (UD) PO SCH ×2 (09:17→22:10)
[2019-04-12] MEDS: ISOSORBIDE MONONITRATE 60 MG TAB.SR.24H (FP) PO SCH ×2 (09:17→22:10)
[2019-04-12] MEDS: TAMSULOSIN HCL 0.4 MG CAP PO SCH (09:17)
[2019-04-12] MEDS: CHOLECALCIFEROL (VIT D3) 1,000 UNIT (25 MCG) TABLET PO SCH (09:17)
[2019-04-12] MEDS: APIXABAN 2.5 MG TABLET PO SCH ×2 (09:17→22:10)
[2019-04-12] MEDS: CARVEDILOL 12.5 MG TABLET (FP) PO SCH ×2 (09:17→22:10)
--- NOTE | 2019-04-12 10:30 | PN ---
Physical Exam: SUBJECTIVE: Patient seen and examined at bedside. Feels much better today and close to baseline. No SOB or NARANJO or CP. OBJECTIVE: Vital Signs Temperature 98.0 F 04/12/19 08:25 Pulse Rate 70 04/12/19 08:25 Respiratory Rate 20 04/12/19 08:28 Blood Pressure 142/59 L 04/12/19 08:25 O2 Sat by Pulse Oximetry (%) 96 04/12/19 08:28 GENERAL: The patient is awake, alert, and fully oriented, in no acute distress. EYES: extraocular movements intact, sclera anicteric, conjunctiva clear. LUNGS: b/l mild crackles at bases HEART: Regular rate and rhythm, S1, S2 ABDOMEN: Soft, nontender, nondistended, normoactive bowel sounds EXTREMITIES: warm, well-perfused, no edema. NEUROLOGICAL: Cranial nerves II through XII grossly intact. Normal speech PSYCH: Normal mood, normal affect. SKIN: Warm, dry Laboratory Results - last 24 hr 04/11/19 04/11/19 04/11/19 12:42 17:58 21:46 WBC RBC Hgb Hct MCV MCH MCHC RDW Plt Count MPV Absolute Neuts (auto) Neutrophils % Lymphocytes % Monocytes % Eosinophils % Basophils % Nucleated RBC % Sodium Potassium Chloride Carbon Dioxide Anion Gap BUN Creatinine Est GFR (CKD-EPI)AfAm Est GFR (CKD-EPI)NonAf POC Glucometer 122 123 128 Random Glucose Calcium Phosphorus Magnesium Total Bilirubin AST ALT Alkaline Phosphatase Total Protein Albumin 04/12/19 04/12/19 04/12/19 05:30 05:30 06:05 WBC 10.0 RBC 3.75 L Hgb 10.7 L Hct 32.5 L MCV 86.9 MCH 28.6 MCHC 32.9 RDW 15.2 Plt Count 318 MPV 8.1 Absolute Neuts (auto) 8.0 Neutrophils % 80.2 Lymphocytes % 6.8 L Monocytes % 11.3 H Eosinophils % 1.0 Basophils % 0.7 Nucleated RBC % 0 Sodium 141 Potassium 4.6 Chloride 107 Carbon Dioxide 24 Anion Gap 10 BUN 109 H* Creatinine 5.4 H Est GFR (CKD-EPI)AfAm 10.31 Est GFR (CKD-EPI)NonAf 8.89 POC Glucometer 125 Random Glucose 124 H Calcium 9.9 Phosphorus 4.0 Magnesium 3.0 H Total Bilirubin 0.9 AST 3 L ALT 12 L Alkaline Phosphatase 64 Total Protein 6.6 Albumin 3.7 Active Medications Generic Name Dose Route Start Last Admin Trade Name Freq PRN Reason Stop Dose Admin Apixaban 2.5 mg 04/10/19 23:00 04/12/19 09:17 Eliquis - PO 2.5 mg BID [facility] Administration Atorvastatin Calcium 20 mg 04/11/19 22:00 04/11/19 21:48 Lipitor - PO 20 mg HS [facility] Administration Calcium Acetate 667 mg 04/11/19 08:00 04/12/19 09:16 Phoslo - PO 667 mg TIDCM [facility] Administration Carvedilol 12.5 mg 04/10/19 23:00 04/12/19 09:17 Coreg - PO 12.5 mg BID [facility] Administration Cholecalciferol 2,000 unit 04/11/19 10:00 04/12/19 09:17 Vitamin D3 - PO 2,000 unit DAILY [facility] Administration Furosemide 80 mg 04/11/19 06:00 04/12/19 06:07 Lasix Injection - IVPUSH 80 mg BID@0600,1400 [facility] Administration Hydralazine HCl 10 mg 04/11/19 17:29 Apresoline Injection - IVPUSH Q6H PRN HYPERTENSION Insulin Aspart 1 vial 04/11/19 07:00 04/12/19 06:06 Novolog Vial Sliding Scale - SQ Not Given ACHS [facility] Protocol Isosorbide Mononitrate 60 mg 04/10/19 23:00 04/12/19 09:17 Imdur - PO 60 mg BID [facility] Administration Nifedipine 60 mg 04/11/19 22:00 04/12/19 09:17 Procardia Xl - PO 60 mg BID [facility] Administration Non-Formulary Medication 210 mg 04/11/19 10:00 Ferric Citrate [Auryxia] PO BID [facility] Tamsulosin HCl 0.4 mg 04/11/19 10:00 04/12/19 09:17 Flomax - PO 0.4 mg DAILY@0830 [facility] Administration ASSESSMENT/PLAN: 83 y/o M w/PMH of CKD, AV fistula placed last year but not started on HD yet, HTN, DM, CHF, afib, HLD admitted for CHF exacerbation. -CHF exacerbation -c/w IV lasix 80mg bid -low sodium diet -Nephro following - to assess need for HD -improving -HTN -c/w carvedilol, imdur -nifedipine ER 60 mg bid restarted from home meds -Afib -c/w eliquis 2.5 mg bid -CKD -Nephro following -Vascular surgery consulted to evaluate access -Access is ready to use if needed. HD per nephro recs. -dose meds for CrCl <10 -DM -ISS, BGMs ACHS -BPH -c/w tamsulosin 0.4 mg po qd -FEN -no fluids -monitor electrolytes -low sodium diet -Dispo: monitor on tele Visit type - Emergency Visit Emergency Visit: Yes ED Registration Date: 04/10/19 Care time: The patient presented to the Emergency Department on the above date and was hospitalized for further evaluation of their emergent condition. - New Patient This patient is new to me today: No - Critical Care Critical Care patient: No
--- NOTE | 2019-04-12 11:26 | PN ---
Teaching Attending Note Name of Resident: José Miguel Contreras ATTENDING PHYSICIAN STATEMENT I saw and evaluated the patient. I reviewed the resident's note and discussed the case with the resident. I agree with the resident's findings and plan as documented with exceptions below. SUBJECTIVE: Patient seen and examined. Breathing improved, no complaints. OBJECTIVE: Vital Signs Period Temp Pulse Resp BP Sys/Patiño Pulse Ox Last 24 Hr 97.2 F-98.0 F 64-70 20-24 139-180/49-79 96-98 Intake & Output 04/09/19 04/10/19 04/11/19 04/12/19 23:59 23:59 23:59 23:59 Intake Total 260 260 Output Total 1200 350 Balance -940 -90 Weight 180 lb 188 lb 2 oz 178 lb General: lying in bed no acute distress, no use of accessory muscles of respiration, able to speak in full sentences Chest: Decreased breath sounds at bases, few scattered rales, improved air entry Abdomen:soft, NT, ND Extremities: 1+ pedal pitting edema Home Medications Medication Instructions Recorded Atorvastatin Ca [Lipitor] 20 mg PO HS 08/29/18 Carvedilol [Coreg -] 12.5 mg PO BID 08/29/18 Cholecalciferol (Vitamin D3) 2,000 unit PO DAILY 08/29/18 [Vitamin D -] Ferric Citrate [Auryxia] 210 mg PO BID 08/29/18 Tamsulosin HCl [Flomax] 0.4 mg PO DAILY 08/29/18 Apixaban [Eliquis -] 2.5 mg PO BID #60 tablet 02/06/19 Calcium Acetate [Phoslo -] 667 mg PO TIDCM #90 capsule 02/06/19 Furosemide [Lasix] 80 mg PO DAILY 04/10/19 Glimepiride 500 mg PO DAILY 04/10/19 Isosorbide Mononitrate [Imdur -] 60 mg PO BID 04/10/19 Nifedipine ER [Procardia Xl -] 60 mg PO BID 04/10/19 Active Medications Apixaban (Eliquis -) 2.5 mg PO BID [facility] Last Admin: 04/12/19 09:17 Dose: 2.5 mg Atorvastatin Calcium (Lipitor -) 20 mg PO HS [facility] Last Admin: 04/11/19 21:48 Dose: 20 mg Calcium Acetate (Phoslo -) 667 mg PO TIDCM [facility] Last Admin: 04/12/19 09:16 Dose: 667 mg Carvedilol (Coreg -) 12.5 mg PO BID [facility] Last Admin: 04/12/19 09:17 Dose: 12.5 mg Cholecalciferol (Vitamin D3 -) 2,000 unit PO DAILY [facility] Last Admin: 04/12/19 09:17 Dose: 2,000 unit Furosemide (Lasix Injection -) 80 mg IVPUSH BID@0600,1400 [facility] Last Admin: 04/12/19 06:07 Dose: 80 mg Hydralazine HCl (Apresoline Injection -) 10 mg IVPUSH Q6H PRN PRN Reason: HYPERTENSION Insulin Aspart (Novolog Vial Sliding Scale -) 1 vial SQ [facility]; Protocol Last Admin: 04/12/19 06:06 Dose: Not Given Isosorbide Mononitrate (Imdur -) 60 mg PO BID [facility] Last Admin: 04/12/19 09:17 Dose: 60 mg Nifedipine (Procardia Xl -) 60 mg PO BID [facility] Last Admin: 04/12/19 09:17 Dose: 60 mg Non-Formulary Medication (Ferric Citrate [Auryxia]) 210 mg PO BID [facility] Tamsulosin HCl (Flomax -) 0.4 mg PO DAILY@0830 [facility] Last Admin: 04/12/19 09:17 Dose: 0.4 mg Laboratory Results - last 24 hr 04/11/19 04/11/19 04/11/19 12:42 17:58 21:46 WBC RBC Hgb Hct MCV MCH MCHC RDW Plt Count MPV Absolute Neuts (auto) Neutrophils % Lymphocytes % Monocytes % Eosinophils % Basophils % Nucleated RBC % Sodium Potassium Chloride Carbon Dioxide Anion Gap BUN Creatinine Est GFR (CKD-EPI)AfAm Est GFR (CKD-EPI)NonAf POC Glucometer 122 123 128 Random Glucose Calcium Phosphorus Magnesium Total Bilirubin AST ALT Alkaline Phosphatase Total Protein Albumin 04/12/19 04/12/19 04/12/19 05:30 05:30 06:05 WBC 10.0 RBC 3.75 L Hgb 10.7 L Hct 32.5 L MCV 86.9 MCH 28.6 MCHC 32.9 RDW 15.2 Plt Count 318 MPV 8.1 Absolute Neuts (auto) 8.0 Neutrophils % 80.2 Lymphocytes % 6.8 L Monocytes % 11.3 H Eosinophils % 1.0 Basophils % 0.7 Nucleated RBC % 0 Sodium 141 Potassium 4.6 Chloride 107 Carbon Dioxide 24 Anion Gap 10 BUN 109 H* Creatinine 5.4 H Est GFR (CKD-EPI)AfAm 10.31 Est GFR (CKD-EPI)NonAf 8.89 POC Glucometer 125 Random Glucose 124 H Calcium 9.9 Phosphorus 4.0 Magnesium 3.0 H Total Bilirubin 0.9 AST 3 L ALT 12 L Alkaline Phosphatase 64 Total Protein 6.6 Albumin 3.7 CXR images reviewed, improved, follow up official read ASSESSMENT AND PLAN: 83 yom with PMHx of CKD stage V, s/p left arm AV fistula 07/2018, no on HD yet, HTN, Systolic/diastolic dysfunction, HLD, NIDDM, Afib on eliquis admitted with dyspnea -Acute on chronic systolic/diastolic heart failure exacerbation -CKD stage V s/p left arm AV fistula 07/2018, not on HD yet -Uncontrolled HTN -Afib on eliquis -NIDDM -HLD Plan: Volume status/CXR improved. Continue lasix 80 mg IV BID, monitor renal function and volume status closely. Vascular surgery input noted, left arm AV fistula ok to use Follow up with renal if plan to start HD prior to dc. H/o uncontrolled BP. Continue Imdur/coreg/nifedipine. Hydralazine prn for SBP >170 Reconcile home meds. ISS/statin/flomax DVTPPX on eliquis Dispo in 24-48 hours pending clinical improvement and HD plans. Plan discussed with patient and nursing in detail, all questions answered
--- NOTE | 2019-04-12 12:27 | PN ---
Progress Note (short form) - Note Progress Note: Renal Consult for Progressive CKD with volume overload Pt seen and examined at the bedside awake and alert feels better, no sob, cp, abd pain, N/V/D making urine Vital Signs Temperature 98.0 F 04/12/19 08:25 Pulse Rate 70 04/12/19 08:25 Respiratory Rate 20 04/12/19 08:28 Blood Pressure 142/59 L 04/12/19 08:25 O2 Sat by Pulse Oximetry (%) 96 04/12/19 08:28 Intake & Output 04/09/19 04/10/19 04/11/19 04/12/19 23:59 23:59 23:59 23:59 Intake Total 260 260 Output Total 1200 350 Balance -940 -90 Weight 81.647 kg 85.332 kg 80.739 kg NAD irregular, no M/R Dec BS, rales at lung bases soft NT/ND, no rebound or guarding no LE edema, clubbing or cyanosis CBC, BMP 04/12/19 05:30 04/12/19 05:30 Current Medications Apixaban (Eliquis -) 2.5 mg PO BID [facility] Last Admin: 04/12/19 09:17 Dose: 2.5 mg Atorvastatin Calcium (Lipitor -) 20 mg PO HS [facility] Last Admin: 04/11/19 21:48 Dose: 20 mg Calcium Acetate (Phoslo -) 667 mg PO TIDCM [facility] Last Admin: 04/12/19 11:39 Dose: 667 mg Carvedilol (Coreg -) 12.5 mg PO BID [facility] Last Admin: 04/12/19 09:17 Dose: 12.5 mg Cholecalciferol (Vitamin D3 -) 2,000 unit PO DAILY [facility] Last Admin: 04/12/19 09:17 Dose: 2,000 unit Furosemide (Lasix Injection -) 80 mg IVPUSH BID@0600,1400 [facility] Last Admin: 04/12/19 06:07 Dose: 80 mg Hydralazine HCl (Apresoline Injection -) 10 mg IVPUSH Q6H PRN PRN Reason: HYPERTENSION Insulin Aspart (Novolog Vial Sliding Scale -) 1 vial SQ [facility]; Protocol Last Admin: 04/12/19 11:39 Dose: Not Given Isosorbide Mononitrate (Imdur -) 60 mg PO BID [facility] Last Admin: 04/12/19 09:17 Dose: 60 mg Nifedipine (Procardia Xl -) 60 mg PO BID [facility] Last Admin: 04/12/19 09:17 Dose: 60 mg Non-Formulary Medication (Ferric Citrate [Auryxia]) 210 mg PO BID [facility] Tamsulosin HCl (Flomax -) 0.4 mg PO DAILY@0830 [facility] Last Admin: 04/12/19 09:17 Dose: 0.4 mg 83 year old gentleman with 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 #Progressive CKD with fluid overload, now ESRD requiring dialysis #CHF/Fluid overload #Afib #Hypertension #BPH pt diuresing with diuretics but BUN up-trending will need renal replacement therapy for low eGFR and volume mangement the risks and benefits of dialysis were discussed with the patient and he is agreeable to starting dialysis. will plan for first dialysis session tomorrow and 2nd on Tuesday will need to secure outpatient HD placement given that he has residual kidney function it will be safe to discharge him with 3-4 day gap between hospital dialysis and outpatient HD start can transition to oral diuretics once he starts dialysis dose all meds for intermittent HD continue flomax continue nifedpine and coreg Thank you Shola Guaman DO
[2019-04-12] MEDS: ATORVASTATIN CA 20 MG TABLET (FP) PO SCH (22:10)
[2019-04-13 03:10] LABS: HEP.C VIRUS AB <0.1 s/co ratio (0.0-0.9)
[2019-04-13] MEDS: FUROSEMIDE 40 MG/4 ML INJECTABLE VIAL IVPUSH SCH (06:09)
[2019-04-13] MEDS: INSULIN SLIDING SCALE (NOVOLOG) 1 VIAL SQ SCH ×4 (06:09→21:40)
[2019-04-13] MEDS ORDERED: HEPARIN NA (PORCINE) 5,000 UNITS/ML 1ML VIAL IVPUSH ONE (09:30)
[2019-04-13] MEDS: HEPARIN NA (PORCINE) 5,000 UNITS/ML 1ML VIAL IVPUSH SCH ×3 (09:30→11:30)
[2019-04-13] MEDS: CALCIUM ACETATE 667 MG CAPSULE (FP) PO SCH ×3 (09:46→18:09)
[2019-04-13] MEDS: ISOSORBIDE MONONITRATE 60 MG TAB.SR.24H (FP) PO SCH ×2 (09:47→21:39)
[2019-04-13] MEDS: NIFEdipine E.R 60 MG TABLET (UD) PO SCH ×2 (09:47→21:39)
[2019-04-13] MEDS: APIXABAN 2.5 MG TABLET PO SCH ×2 (09:47→21:39)
[2019-04-13] MEDS: CARVEDILOL 12.5 MG TABLET (FP) PO SCH ×2 (09:47→21:39)
[2019-04-13] MEDS: TAMSULOSIN HCL 0.4 MG CAP PO SCH (09:47)
[2019-04-13] MEDS: CHOLECALCIFEROL (VIT D3) 1,000 UNIT (25 MCG) TABLET PO SCH (09:48)
[2019-04-13 10:57] LABS: HEMATOCRIT 29.3 % (35.4-49); HEMOGLOBIN 9.6 GM/dL (11.7-16.9); MCH 28.5 pg (25.7-33.7); MCHC 32.6 g/dl (32.0-35.9); MEAN CELL VOLUME 87.3 fl (80-96); MEAN PLT VOLUME 8.6 fl (7.5-11.1); PLATELET COUNT 272 K/MM3 (134-434); RBC 3.36 M/mm3 (4.00-5.60); RDW 15.3 % (11.9-15.9); WHITE BLOOD COUNT 8.4 K/mm3 (4.0-10.0)
[2019-04-13 11:20] LABS: CALCIUM 8.7 mg/dL (8.5-10.1); POTASSIUM 4.3 mmol/L (3.5-5.1)
--- NOTE | 2019-04-13 12:44 | PN ---
Physical Exam: SUBJECTIVE: Patient seen and examined, breathing improved, no new concerns. OBJECTIVE: Vital Signs Period Temp Pulse Resp BP Sys/Patiño Pulse Ox Last 24 Hr 97.5 F-98.0 F 59-66 18-20 119-155/53-68 93 Intake & Output 04/10/19 04/11/19 04/12/19 04/13/19 23:59 23:59 23:59 23:59 Intake Total 260 580 Output Total 1200 350 Balance -940 230 Weight 180 lb 188 lb 2 oz 178 lb 188 lb GENERAL: lying in bed, no acute distress Chest: bibasilar rales, improved exam and air entry Abdomen:Soft, obese, NT Extremities: improved pedal edema Psych: pleasant, co-operative Laboratory Results - last 24 hr 04/12/19 04/12/19 04/12/19 12:40 16:42 22:07 WBC RBC Hgb Hct MCV MCH MCHC RDW Plt Count MPV Sodium Potassium Chloride Carbon Dioxide Anion Gap BUN Creatinine Est GFR (CKD-EPI)AfAm Est GFR (CKD-EPI)NonAf POC Glucometer 169 104 Random Glucose Calcium Phosphorus Hepatitis A IgM Ab Negative Hep Bs Antigen Negative Hep B Core IgM Ab Negative Hepatitis C Antibody <0.1 04/13/19 04/13/19 04/13/19 06:05 09:45 09:45 WBC 8.4 RBC 3.36 L Hgb 9.6 L Hct 29.3 L MCV 87.3 MCH 28.5 MCHC 32.6 RDW 15.3 Plt Count 272 MPV 8.6 Sodium 139 Potassium 4.3 Chloride 105 Carbon Dioxide 24 Anion Gap 10 BUN 109 H* Creatinine 6.0 H Est GFR (CKD-EPI)AfAm 9.08 Est GFR (CKD-EPI)NonAf 7.83 POC Glucometer 97 Random Glucose 134 H Calcium 8.7 Phosphorus 4.0 Hepatitis A IgM Ab Hep Bs Antigen Hep B Core IgM Ab Hepatitis C Antibody Active Medications Generic Name Dose Route Start Last Admin Trade Name Freq PRN Reason Stop Dose Admin Apixaban 2.5 mg 04/10/19 23:00 04/13/19 09:47 Eliquis - PO Not Given BID [facility] Atorvastatin Calcium 20 mg 04/11/19 22:00 04/12/19 22:10 Lipitor - PO 20 mg HS [facility] Administration Calcium Acetate 667 mg 04/11/19 08:00 04/13/19 11:43 Phoslo - PO Not Given TIDCM [facility] Carvedilol 12.5 mg 04/10/19 23:00 04/13/19 09:47 Coreg - PO Not Given BID [facility] Cholecalciferol 2,000 unit 04/11/19 10:00 04/13/19 09:48 Vitamin D3 - PO Not Given DAILY [facility] Furosemide 80 mg 04/11/19 06:00 04/13/19 06:09 Lasix Injection - IVPUSH 80 mg BID@0600,1400 [facility] Administration Hydralazine HCl 10 mg 04/11/19 17:29 Apresoline Injection - IVPUSH Q6H PRN HYPERTENSION Sodium Chloride 250 mls @ 3,000 mls/hr 04/12/19 12:27 Normal Saline - IV 04/13/19 12:27 PRN PRN Hypotension during Dialysis Insulin Aspart 1 vial 04/11/19 07:00 04/13/19 11:42 Novolog Vial Sliding Scale - SQ Not Given ACHS [facility] Protocol Isosorbide Mononitrate 60 mg 04/10/19 23:00 04/13/19 09:47 Imdur - PO Not Given BID [facility] Nifedipine 60 mg 04/11/19 22:00 04/13/19 09:47 Procardia Xl - PO Not Given BID [facility] Non-Formulary Medication 210 mg 04/11/19 10:00 Ferric Citrate [Auryxia] PO BID [facility] Tamsulosin HCl 0.4 mg 04/11/19 10:00 04/13/19 09:47 Flomax - PO Not Given DAILY@0830 [facility] ASSESSMENT/PLAN: 83 yom with PMHx of CKD stage V, s/p left arm AV fistula 07/2018, no on HD yet, HTN, Systolic/diastolic dysfunction, HLD, NIDDM, Afib on eliquis admitted with dyspnea -Acute on chronic systolic/diastolic heart failure exacerbation -CKD stage V s/p left arm AV fistula 07/2018, now with ESRD on HD -Uncontrolled HTN -Afib on eliquis -NIDDM -HLD Plan: Renal input noted, s/p first HD session today. transition to PO lasix in 24 hours. Outpatient HD arranged. Volume status/CXR improved. H/o uncontrolled BP. Continue Imdur/coreg/nifedipine. Hydralazine prn for SBP >170 ISS/statin/flomax DVTPPX on eliquis Dispo plan for d/c in 24 hours after second HD on PO lasix with outpatient HD arrangements made for Tuesday if no new concerns. Assess for ambulatory oxygen needs. Plan discussed with patient, nursing in detail, all questions answered Visit type - Emergency Visit Emergency Visit: Yes ED Registration Date: 04/10/19 Care time: The patient presented to the Emergency Department on the above date and was hospitalized for further evaluation of their emergent condition. - New Patient This patient is new to me today: No - Critical Care Critical Care patient: No - Discharge Referral Referred to [facility] No
--- NOTE | 2019-04-13 13:20 | PN ---
Progress Note (short form) - Note Progress Note: Renal Consult for Progressive CKD with volume overload Pt seen and examined during dialysis awake and alert tolerating HD well BP stable, UF goal is 500ml no sob, cp, abd pain, N/V/D Vital Signs Temperature 97.9 F 04/13/19 06:00 Pulse Rate 61 04/13/19 12:00 Respiratory Rate 18 04/13/19 12:00 Blood Pressure 122/64 04/13/19 12:00 O2 Sat by Pulse Oximetry (%) 93 L 04/12/19 20:20 Intake & Output 04/10/19 04/11/19 04/12/19 04/13/19 23:59 23:59 23:59 23:59 Intake Total 260 580 Output Total 1200 350 Balance -940 230 Weight 81.647 kg 85.332 kg 80.739 kg 85.275 kg NAD irregular, no M/R Dec BS, rales at lung bases soft NT/ND, no rebound or guarding no LE edema, clubbing or cyanosis CBC, BMP 04/13/19 09:45 04/13/19 09:45 Current Medications Apixaban (Eliquis -) 2.5 mg PO BID [facility] Last Admin: 04/13/19 09:47 Dose: Not Given Atorvastatin Calcium (Lipitor -) 20 mg PO HS [facility] Last Admin: 04/12/19 22:10 Dose: 20 mg Calcium Acetate (Phoslo -) 667 mg PO TIDCM [facility] Last Admin: 04/13/19 11:43 Dose: Not Given Carvedilol (Coreg -) 12.5 mg PO BID [facility] Last Admin: 04/13/19 09:47 Dose: Not Given Cholecalciferol (Vitamin D3 -) 2,000 unit PO DAILY [facility] Last Admin: 04/13/19 09:48 Dose: Not Given Furosemide (Lasix Injection -) 80 mg IVPUSH BID@0600,1400 [facility] Last Admin: 04/13/19 06:09 Dose: 80 mg Hydralazine HCl (Apresoline Injection -) 10 mg IVPUSH Q6H PRN PRN Reason: HYPERTENSION Sodium Chloride (Normal Saline -) 250 mls @ 3,000 mls/hr IV PRN PRN PRN Reason: Hypotension during Dialysis Stop: 04/13/19 12:27 Insulin Aspart (Novolog Vial Sliding Scale -) 1 vial SQ ACHS [facility]; Protocol Last Admin: 04/13/19 11:42 Dose: Not Given Isosorbide Mononitrate (Imdur -) 60 mg PO BID [facility] Last Admin: 04/13/19 09:47 Dose: Not Given Nifedipine (Procardia Xl -) 60 mg PO BID [facility] Last Admin: 04/13/19 09:47 Dose: Not Given Non-Formulary Medication (Ferric Citrate [Auryxia]) 210 mg PO BID [facility] Tamsulosin HCl (Flomax -) 0.4 mg PO DAILY@0830 [facility] Last Admin: 04/13/19 09:47 Dose: Not Given 83 year old gentleman with 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 #Progressive CKD with fluid overload, now ESRD requiring dialysis #CHF/Fluid overload #Afib #Hypertension #BPH tolerating first dialysis session w/o issue for second treatment tomorrow if pt tolerated HD well and is w/o symptoms can plan discharge following HD tomorrow will need to be maintained on oral diuretics: Torsemide 80mg Daily dose all meds for intermittent HD continue flomax continue nifedpine and coreg Thank you Shola Guaman DO
[2019-04-13] MEDS ORDERED: SODIUM CHLORIDE 250 ML IV PRN (14:20)
[2019-04-13] MEDS: ATORVASTATIN CA 20 MG TABLET (FP) PO SCH (21:39)
[2019-04-14] MEDS: INSULIN SLIDING SCALE (NOVOLOG) 1 VIAL SQ SCH ×2 (06:21→12:42)
[2019-04-14] MEDS ORDERED: SODIUM CHLORIDE 250 ML IV PRN (09:00)
[2019-04-14] MEDS ORDERED: HEPARIN NA (PORCINE) 5,000 UNITS/ML 1ML VIAL IVPUSH ONE (09:00)
--- NOTE | 2019-04-14 09:25 | PN ---
Progress Note (short form) - Note Progress Note: Renal Consult for Progressive CKD with volume overload Pt seen and examined at the bedside awake and alert has slight tenderness in AVF no sob, cp, abd pain, N/V/D for HD today Vital Signs Temperature 97.9 F 04/14/19 06:00 Pulse Rate 62 04/14/19 06:00 Respiratory Rate 20 04/14/19 08:45 Blood Pressure 143/61 04/14/19 06:00 O2 Sat by Pulse Oximetry (%) 97 04/14/19 08:45 Intake & Output 04/11/19 04/12/19 04/13/19 04/14/19 23:59 23:59 23:59 23:59 Intake Total 260 580 10 Output Total 1200 350 Balance -940 230 10 Weight 85.332 kg 80.739 kg 85.275 kg 86.001 kg NAD irregular, no M/R Dec BS, rales at lung bases soft NT/ND, no rebound or guarding no LE edema, clubbing or cyanosis CBC, BMP 04/13/19 09:45 04/13/19 09:45 Current Medications Apixaban (Eliquis -) 2.5 mg PO BID [facility] Last Admin: 04/13/19 21:39 Dose: 2.5 mg Atorvastatin Calcium (Lipitor -) 20 mg PO HS [facility] Last Admin: 04/13/19 21:39 Dose: 20 mg Calcium Acetate (Phoslo -) 667 mg PO TIDCM [facility] Last Admin: 04/13/19 18:09 Dose: 667 mg Carvedilol (Coreg -) 12.5 mg PO BID [facility] Last Admin: 04/13/19 21:39 Dose: 12.5 mg Cholecalciferol (Vitamin D3 -) 2,000 unit PO DAILY [facility] Last Admin: 04/13/19 09:48 Dose: Not Given Epoetin Uli (Epogen -) 4,000 unit IVPUSH ONCE ONE Stop: 04/14/19 09:31 Heparin Sodium (Porcine) (Heparin -) 300 unit IVPUSH Q1H [facility] Stop: 04/14/19 11:01 Hydralazine HCl (Apresoline Injection -) 10 mg IVPUSH Q6H PRN PRN Reason: HYPERTENSION Insulin Aspart (Novolog Vial Sliding Scale -) 1 vial SQ [facility]; Protocol Last Admin: 04/14/19 06:21 Dose: Not Given Isosorbide Mononitrate (Imdur -) 60 mg PO BID [facility] Last Admin: 04/13/19 21:39 Dose: 60 mg Nifedipine (Procardia Xl -) 60 mg PO BID [facility] Last Admin: 04/13/19 21:39 Dose: 60 mg Non-Formulary Medication (Ferric Citrate [Auryxia]) 210 mg PO BID [facility] Tamsulosin HCl (Flomax -) 0.4 mg PO DAILY@0830 [facility] Last Admin: 04/13/19 09:47 Dose: Not Given Torsemide (Demadex -) 80 mg PO DAILY [facility] 83 year old gentleman with 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 #Progressive CKD with fluid overload, now ESRD requiring dialysis #CHF/Fluid overload #Afib #Hypertension #BPH for second Hd today outpatient dialysis arranged and will have next treatment on tuesday. can start oral torsemide 80mg daily BP meds to be taken after dialysis on dialysis days dose all meds for intermittent HD continue flomax discharge planned after dialysis today Thank you Shola Guaman DO
[2019-04-14] MEDS: CALCIUM ACETATE 667 MG CAPSULE (FP) PO SCH ×3 (09:29→12:42)
[2019-04-14] MEDS: CARVEDILOL 12.5 MG TABLET (FP) PO SCH ×2 (09:30→10:37)
[2019-04-14] MEDS: TAMSULOSIN HCL 0.4 MG CAP PO SCH ×2 (09:30→10:36)
[2019-04-14] MEDS ORDERED: EPOETIN ALFA 2,000 UNIT/1 ML VIAL IVPUSH ONE (09:30)
[2019-04-14] MEDS: NIFEdipine E.R 60 MG TABLET (UD) PO SCH ×2 (09:31→10:36)
[2019-04-14] MEDS: APIXABAN 2.5 MG TABLET PO SCH ×2 (09:31→10:37)
[2019-04-14] MEDS: CHOLECALCIFEROL (VIT D3) 1,000 UNIT (25 MCG) TABLET PO SCH ×2 (09:31→10:36)
[2019-04-14] MEDS: ISOSORBIDE MONONITRATE 60 MG TAB.SR.24H (FP) PO SCH ×2 (09:31→10:36)
[2019-04-14] MEDS ORDERED: TORSEMIDE 20 MG TABLET (FP) PO SCH (10:00)
[2019-04-14 12:32] LABS: CALCIUM 8.7 mg/dL (8.5-10.1)
--- NOTE | 2019-04-14 13:06 | PN ---
Progress Note (short form) - Note Progress Note: Called by Dr. Guaman, Left AV fistula infiltration. Advised ice pack and BMP. OK for dc on torsemide 80 mg po today with scheduled HD on Tuesday as discussed. Plan communicated with RN and family. Visit type - Emergency Visit Emergency Visit: Yes ED Registration Date: 04/10/19 Care time: The patient presented to the Emergency Department on the above date and was hospitalized for further evaluation of their emergent condition. - New Patient This patient is new to me today: No - Critical Care Critical Care patient: No - Discharge Referral Referred to [facility] Med P.C.: No
--- NOTE | 2019-04-14 13:07 | DS ---
Physical Exam: SUBJECTIVE: Patient seen and examined, breathing improved, no concerns, eager to go home. OBJECTIVE: Vital Signs Period Temp Pulse Resp BP Sys/Patiño Pulse Ox Last 24 Hr 97.9 F-98.3 F 60-75 20-20 123-149/57-72 94-97 Intake & Output 04/11/19 04/12/19 04/13/19 04/14/19 23:59 23:59 23:59 23:59 Intake Total 260 580 250 Output Total 1200 350 Balance -940 230 250 Weight 188 lb 2 oz 178 lb 188 lb 189 lb 9.6 oz PHYSICAL EXAM GENERAL: The patient is awake, alert, and fully oriented, in no acute distress. HEAD: Normal with no signs of trauma. EYES: PERRL, extraocular movements intact, sclera anicteric, conjunctiva clear. ENT: Ears normal, nares patent, oropharynx clear without exudates, moist mucous membranes. NECK: Trachea midline, full range of motion, supple. LUNGS: few basilar rales, improved air entry and exam HEART: S1S2 irregular ABDOMEN: Soft, nontender, nondistended, normoactive bowel sounds, no guarding, no rebound EXTREMITIES:improved pedal edema, Left AV fistula site with no pain/bleed or tenderness NEUROLOGICAL: Cranial nerves II through XII grossly intact. Normal speech, gait not observed. PSYCH: Normal mood, normal affect. SKIN: Warm, dry, normal turgor, no rashes or lesions noted. LABS Laboratory Results - last 24 hr 04/12/19 04/13/19 04/13/19 12:40 17:20 21:38 Sodium Potassium Chloride Carbon Dioxide Anion Gap BUN Creatinine Est GFR (CKD-EPI)AfAm Est GFR (CKD-EPI)NonAf POC Glucometer 162 142 Random Glucose Calcium Hepatitis A IgM Ab Negative Hep Bs Antigen Negative Hep B Core IgM Ab Negative Hepatitis C Antibody <0.1 04/14/19 04/14/19 04/14/19 06:20 11:45 12:29 Sodium 138 Potassium 4.0 Chloride 103 Carbon Dioxide 29 Anion Gap 7 L BUN 79 H Creatinine 5.0 H Est GFR (CKD-EPI)AfAm 11.31 Est GFR (CKD-EPI)NonAf 9.76 POC Glucometer 101 142 Random Glucose 148 H Calcium 8.7 Hepatitis A IgM Ab Hep Bs Antigen Hep B Core IgM Ab Hepatitis C Antibody Renal US: Renal ultrasound The right kidney is small and echogenic measuring 8 cm in sagittal length with a few simple cysts the largest measuring 3 x 2.5 cm and without gross evidence of renal stones or hydronephrosis. The left kidney measures 7.6 cm in sagittal length with a a few simple cysts the largest lower pole exophytic cyst measuring 5.6 x 4.8 cm. No gross renal stones or hydronephrosis are identified. Visualized portion of the liver appears unremarkable IMPRESSION: Both kidneys are small and echogenic suggestive of chronic medical renal disease. No obstructing stones or hydronephrosis, bilaterally. Bilateral renal simple cysts, as described above with the largest cyst in the right kidney measuring 3 cm and largest cyst in the left kidney measuring 5.6 cm. HOSPITAL COURSE: Date of Admission:04/10/19 Date of Discharge: 04/14/19 Minutes to complete discharge: 40 Discharge Summary Reason For Visit: SYSTOLIC CONGESTIVE HEART FAILURE Hospital Course: 83 yom with PMHx of CKD stage V, s/p left arm AV fistula 07/2018, no on HD yet, HTN, Systolic/diastolic dysfunction, HLD, NIDDM, Afib on eliquis admitted with acute on chronic systolic/diastolic heart failure exacerbation and uncontrolled HTN. He was seen by nephrology and placed on IV diuresis. His BP Improved with improvement in volume status. He was seen by vascular surgery and LV fistula deemed ready for use. He was started on hemodialysis. His volume status improved. He was noted with home oxygen needs with ambulation and has been arranged. He will be discharged in stable condition on po torsemide with outpatient hemodialysis and home oxygen. Condition: Stable - Instructions Diet, Activity, Other Instructions: You were admitted with fluid overload, place on Intravenous lasix and started on hemodialysis. You are arranged for outpatient hemodialysis. MEDICATIONS: Stop your furosemide. You are started on torsemide 80 mg daily by bit welder (prescription sent to pharmacy). Continue other medications as before. Please that you are advised to take your BP medications and torsemide after dialysis on your dialysis days (Tuesday, , tuesday) INSTRUCTIONS. Please that you are advised to take your BP medications and torsemide after dialysis on your dialysis days (Tuesday, , tuesday) You are arranged for home oxygen. Please use 2-3 liters with activity, walking and sleep. NO SMOKING AROUND OXYGEN IS A FIRE HAZARD. Ice pack to left fistula site as needed. FOLLOW UP: Hemodialysis on Tuesday 04/[address] Ulloa in [address]. Yanez in 1 week If you notice any new trouble breathing, worsening swelling, pain or concerns at fistula site, or any new concerns, please call 911 or come to the ED. Referrals: Francisco Javier Ulloa MD [Primary Care Provider] - Shola Guaman MD [Staff Physician] - Disposition: VNS/HOME HEALTH CARE - Home Medications Comprehensive Discharge Medication List: Ambulatory Orders Atorvastatin Ca [Lipitor] 20 mg PO HS 08/29/18 Carvedilol [Coreg -] 12.5 mg PO BID 08/29/18 Cholecalciferol (Vitamin D3) [Vitamin D -] 2,000 unit PO DAILY 08/29/18 Ferric Citrate [Auryxia] 210 mg PO BID 08/29/18 Tamsulosin HCl [Flomax] 0.4 mg PO DAILY 08/29/18 Apixaban [Eliquis -] 2.5 mg PO BID #60 tablet 02/06/19 Calcium Acetate [Phoslo -] 667 mg PO TIDCM #90 capsule 02/06/19 Glimepiride 500 mg PO DAILY 04/10/19 Isosorbide Mononitrate [Imdur -] 60 mg PO BID 04/10/19 Nifedipine ER [Procardia XL -] 60 mg PO BID 04/10/19 Torsemide [Demadex -] 80 mg PO DAILY #30 tablet 04/14/19 This patient is new to me today: No Emergency Visit: Yes ED Registration Date: 04/10/19 Care time: The patient presented to the Emergency Department on the above date and was hospitalized for further evaluation of their emergent condition. Critical Care patient: No - Discharge Referral Referred to [facility] Med P.C.: No
[2019-04-14 15:36] VITALS: BP 110/51; PULSE 58; TEMP 98.1
[2019-04-14] MEDS: HEPARIN NA (PORCINE) 5,000 UNITS/ML 1ML VIAL IVPUSH SCH ×3 (15:52→15:54)
== END 2019-04-14 18:33 | disposition home health service (06) | DRG 291 ==
LOC: JER 18:20 → JERBED 19:53 → J4W 04-11 19:11
PROVIDERS: ADMIT Internal Medicine Geriatric Medicine; ATTEND Hospitalist
PROC: 5A1D70Z Performance of Urinary Filtration, Intermittent, Less than 6 Hours Per Day (ICD-10-PCS; principal; 2019-04-13)
DX: I13.2 Hypertensive heart and chronic kidney disease with heart failure and with stage 5 chronic kidney disease, or end stage renal disease (principal); N18.6 End stage renal disease; I50.43 Acute on chronic combined systolic (congestive) and diastolic (congestive) heart failure; N17.9 Acute kidney failure, unspecified; I48.91 Unspecified atrial fibrillation; J44.9 Chronic obstructive pulmonary disease, unspecified; E78.00 Pure hypercholesterolemia, unspecified; N40.0 Benign prostatic hyperplasia without lower urinary tract symptoms; I16.0 Hypertensive urgency; E87.70 Fluid overload, unspecified; E11.22 Type 2 diabetes mellitus with diabetic chronic kidney disease; N28.1 Cyst of kidney, acquired; Z99.2 Dependence on renal dialysis
CPT/HCPCS: 36415; 36600; 71045-TC-FY; 76775-TC; 80048; 80053; 80074; 82375; 82550; 82803; 82962; 83050; 83735; 83880; 84100; 84484; 84540; 85025; 85027; 85610; 86707; 87350; 93005; 93010; 93990-TC; 94761; 99285-25; J1644